=== PATIENT | male | born 1950 | race Caucasian/White ===

== ENCOUNTER 2017-04-15 11:26 | Emergency (ER) | payer MEDICARE, MEDICAID ==
--- NOTE | 2017-04-15 14:14 | RAD ---
Indication: Fall striking posterior head. Focal pain and bump. Comparison: July 04, 2015 CT. Technique: Noncontrast CT vertex of skull through foramen magnum. Report: Mild prominence of the cerebral sulci and ventricles reflecting involutional change. Patent basal cisterns. Negative for avalos matter white matter obscuration, intra or extra-axial hemorrhage, or mass effect. Decreased density in the periventricular and subcortical white matter while non-specific is most likely due to chronic microangiopathy. Unremarkable orbital contents. Negative for calvarial or skull base fracture. Clear visualized paranasal sinuses and mastoid air spaces. Negative for scalp hematoma. IMPRESSION: 1. No traumatic brain injury or acute intracranial process evident. 2. Mild involutional change and stigmata of chronic small vessel ischemic disease with mild progression.
--- NOTE | 2017-04-15 14:19 | RAD ---
Indication: RIGHT hip pain post fall. Comparison: September 03, 2015 CT. Technique: AP pelvis and AP and frog-leg lateral views RIGHT hip. Report: The RIGHT hip is normally located. Negative for pelvic joint diastases. No cortical disruption or suspicious trabecular irregularity of the proximal RIGHT femur or pelvis to indicate fracture. Both hips are remarkable for mild osteophytosis, mild axial joint space narrowing, and partial loss of femoral head sphericity as well as acetabular roof subchondral sclerosis and cystic change. Unremarkable soft tissue contours accounting for obese body habitus. IMPRESSION: No radiographic evidence for RIGHT hip fracture. 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
--- NOTE | 2017-04-15 15:57 | ED ---
Complex/Multi-Sys Presentation - HPI Summary HPI Summary: Pt here w/ fall this morning - was trying to stand and walk somewhere when his legs got caught in his walker and he fell backwards, striking his head. Has a bump here - denies LOC, YEBOAH, visual change, nausea, vomiting, numbness, tingling , weakness, syncope. Also notes Rt hip pain since fall - denies falling here so not sure why this hurts? Denies numbness, tingling, weakness into LE and no change in bowel/bladder habits. Lives at [facility] by himself - h/o Parkinson's - controlled w/ multiple medications. Denies anything other than mis stepping causing his fall today. - History Of Current Complaint Chief Complaint: EDHeadInjury Time Seen by Provider: 04/15/17 12:18 Hx Obtained From: Patient - Allergies/Home Medications Allergies/Adverse Reactions: Allergies Allergy/AdvReac Type Severity Reaction Status Date / Time Haloperidol [From Haldol] Allergy Intermediate Leg Cramps Verified 10/08/15 11: 55 Propoxyphene Allergy Unknown Unknown Verified 10/08/15 11:55 [From Darvocet-N] Reaction Details Zolpidem [From Ambien] Allergy Unknown Unknown Verified 10/08/15 11:55 Reaction Details PMH/Surg Hx/FS Hx/Imm Hx Previously Healthy: Yes Endocrine/Hematology History: Denies: Hx Anticoagulant Therapy, Hx Blood Disorders, Hx Blood Transfusions, Hx Bone Marrow Disease, Hx Diabetes, Hx Systemic Lupus Erythematosus, Hx Sickle Cell Disease, Hx Thyroid Disease, Hx Anemia, Hx Unexplained Bleeding, Other Endocrine/Hematological Disorders Cardiovascular History: Reports: Hx Coronary Artery Disease, Hx Hypercholesterolemia, Hx Hypertension, Other Cardiovascular Problems/Disorders - apparent venous insufficiency Denies: Hx Aneurysm, Hx Angina, Hx Angioplasty, Hx Auto Implanted Cardiovert Defib, Hx Cardiac Arrest, Hx Cardiomegaly, Hx Congenital Heart Disease, Hx Congestive Heart Failure, Hx Deep Vein Thrombosis, Hx Hypotension, Hx Myocardial Infarction, Hx Pacemaker/ICD, Hx Peripheral Vascular Disease, Hx Rheumatic Fever, Hx Syncope, Hx Valvular Heart Disease Respiratory History: Reports: Hx Asthma, Hx Seasonal Allergies, Hx Sleep Apnea Denies: Hx Chronic Bronchitis, Hx Chronic Obstructive Pulmonary Disease (COPD ), Hx Cystic Fibrosis, Hx Lung Cancer, Hx Pleural Effusion, Hx Pneumonia, Hx Pulmonary Edema, Hx Pulmonary Embolism, Other Respiratory Problems/Disorders GI History: Reports: Hx Gastroesophageal Reflux Disease, Hx Irritable Bowel, Other GI Disorders - Chronic constipation Denies: Hx Cirrhosis, Hx Crohn's Disease, Hx Diverticulosis, Hx Gall Bladder Disease, Hx Gastrointestinal Bleed, Hx Hiatal Hernia, Hx Jaundice, Hx Obstructive Bowel, Hx Ileostomy, Hx Pyloric Stenosis, Hx Ulcer History: Reports: Hx Acute Renal Failure - partial nephrectomy, Hx Benign Prostatic Hyperplasia, Hx Kidney Stones, Other Problems/Disorders - has only one functioning kidney Denies: Hx Chronic Renal Failure, Hx Dialysis, Hx Kidney Infection, Hx Renal Disease Musculoskeletal History: Reports: Hx Arthritis, Hx Back Problems - DJD, L-spine stenosis, Hx Tendonitis Denies: Hx Bursitis, Hx Congenital Bone Abnormalities, Hx Fibromyalgia, Hx Gout, Hx Orthopedic Injury, Hx Osteoporosis, Hx Scoliosis, Other Musculoskeletal History Sensory History: Reports: Hx Contacts or Glasses - Glasses left at home, Hx Vision Problem Denies: Hx Cataracts, Hx Eye Injury, Hx Eye Prosthesis, Hx Glaucoma, Hx Macular Degeneration, Hx Deafness, Hx Hearing Aid, Hx Hearing Problem, Other Sensory Impairments Opthamlomology History: Reports: Hx Contacts or Glasses - Glasses left at home, Hx Vision Problem Denies: Hx Cataracts, Hx Eye Injury, Hx Eye Prosthesis, Hx Glaucoma, Hx Macular Degeneration, Other Sensory Impairments Neurological History: Reports: Hx Dementia, Other Neuro Impairments/Disorders - hx says estrellita dementia, pt denies. Bipolar, Parkinsons Denies: Hx Developmental Delay, Hx Headaches, Hx Migraine, Hx Seizures, Hx Spinal Cord Injury, Hx Transient Ischemic Attacks (TIA) Psychiatric History: Reports: Hx Anxiety, Hx Depression, Hx Inpatient Treatment , Hx Community Mental Health Tx, Hx Bipolar Disorder Denies: Hx Attention Deficit Hyperactivity Disorder, Hx Eating Disorder, Hx Panic Disorder, Hx Post Traumatic Stress Disorder, Hx Schizophrenia, Hx Suicide Attempt, Hx of Violent Episodes Against Others, Hx Substance Abuse, Other Psychiatric Issues/Disorders - Cancer History Hx Chemotherapy: No Hx Radiation Therapy: No - Surgical History Surgery Procedure, Year, and Place: lt PARTIAL nephrectomy age 10 ruptured kidney sports related,. Nose surgery from being broken. [place] [facility] [place] Hx Anesthesia Reactions: No - Immunization History Date of Tetanus Vaccine: unknown Date of Influenza Vaccine: 2011 Infectious Disease History: No Infectious Disease History: Denies: Hx Clostridium Difficile, Hx Hepatitis, Hx Human Immunodeficiency Virus (HIV), Hx of Known/Suspected MRSA, Hx Shingles, Hx Tuberculosis, Hx Known/ Suspected VRE, Traveled Outside the [place] in Last 30 Days - Family History Known Family History: Positive: Cardiac Disease, Hypertension, Diabetes - Social History Occupation: Retired Lives: Assisted Living - [facility] Alcohol Use: None Hx Substance Use: No Substance Use Type: Reports: None Hx Tobacco Use: No Smoking Status (MU): Never Smoked Tobacco Have You Smoked in the Last Year: No Review of Systems Constitutional: Negative Negative: Fever, Chills, Fatigue Eyes: Negative Negative: Photophobia, Blurred Vision, Diplopia ENT: Negative Negative: Dental Pain Cardiovascular: Negative Negative: Chest Pain Respiratory: Negative Negative: Shortness Of Breath Gastrointestinal: Negative Negative: Abdominal Pain, Vomiting, Diarrhea, Nausea Positive: no symptoms reported. Negative: incontinence Musculoskeletal: Other - see HPI Skin: Negative Neurological: Other - see HPI Psychological: Normal All Other Systems Reviewed And Are Negative: Yes Physical Exam Triage Information Reviewed: Yes Vital Signs On Initial Exam: Initial Vitals Temp Pulse Resp BP Pulse Ox 98.1 F 92 14 152/82 96 04/15/17 11:27 04/15/17 11:27 04/15/17 11:27 04/15/17 11:27 04/15/17 11:27 Vital Signs Reviewed: Yes Appearance: Positive: Well-Appearing, No Pain Distress, Obese Skin: Positive: Warm, Dry - no erythema, no ecchymosis over scalp, no step off , no battlesigns Head/Face: Positive: Normal Head/Face Inspection - NTTP Eyes: Positive: Normal, EOMI, NATA, Conjunctiva Clear ENT: Positive: Hearing grossly normal, TMs normal - no hemotympanum. Negative: Nasal drainage Dental: Negative: Dental Fracture @ Neck: Positive: Supple, Nontender Respiratory/Lung Sounds: Positive: Breath Sounds Present Cardiovascular: Positive: Normal Abdomen Description: Positive: Nontender Musculoskeletal: Positive: Normal, Strength/ROM Intact Neurological: Positive: Sensory/Motor Intact, Alert, Oriented to Person Place, Time, CN Intact II-III, Other - resting tremor Psychiatric: Positive: Other - somewhat flat affect -pleasant, calm and cooperative Diagnostics - Vital Signs Vital Signs Temp Pulse Resp BP Pulse Ox 04/15/17 11:27 98.1 F 92 14 152/82 96 - Laboratory Lab Statement: Any lab studies that have been ordered have been reviewed, and results considered in the medical decision making process. Complex Multi-Symp Course/Dx Course Of Treatment: Pt head scan is clear after fall - no sx here today of concussion - monitor for neurological deficits over next few weeks. Rt hip w/o acute findings - pt has arthritis here - recent fall may have triggered inflammation - NSAID's as tolerated - otherwise acetaminophen. F/u PCP. Reviewed danger s/sx of when to return to ED - paperwork complete - Diagnoses Provider Diagnoses: Fall from standing, Head injury, Right hip pain Discharge - Discharge Plan Condition: Stable Disposition: HOME Patient Education Materials: Head Injury (ED), Hip Pain (ED), Osteoarthritis ( ED) Referrals: Guille Astudillo MD [Primary Care Provider] - Additional Instructions: Although your head scan was clear of acute injury today, it is important that you monitor yourself for neurological deficits over next few weeks. Follow-up with PCP in 2-3 days for recheck. *if you develop headache, change in vision, vomiting, dizziness, neck pain, syncope, return to ED Your right hip pain may be an early contusion and/or arthritis flair up. You may ice/heat, gently stretch, take NSAID's with food as tolerated - otherwise you may take acetaminophen for pain. Follow-up with PCP this week. Call today to schedule an appointment this week. *If you develop swelling, significant bruising, weakness in leg, return to ED
[2017-04-15 17:09] VITALS: BP 154/82
== END 2017-04-15 16:30 | disposition home or self-care (01) ==
LOC: ED 11:26
DX: S09.90XA Unspecified injury of head, initial encounter (principal); M25.551 Pain in right hip; W19.XXXA Unspecified fall, initial encounter; Y93.9 Activity, unspecified; Y92.9 Unspecified place or not applicable
CPT/HCPCS: 70450; 99282

== ENCOUNTER 2017-06-27 16:14 | Emergency (ER) | payer MEDICARE, MEDICAID ==
[2017-06-27] MEDS ORDERED: traMADol TAB* 50 MG PO ONE (19:12)
--- NOTE | 2017-06-27 20:02 | RAD ---
INDICATION: Bilateral hip pain COMPARISON: Pelvis and right hip April 15, 2017 TECHNIQUE: An AP view of the pelvis and AP views of the hip in neutral and abducted position were obtained FINDINGS: Bones: There are no acute bony findings. Joint spaces: The joint spaces are preserved. There is osteoarthritic change about the acetabula right greater left. There is mild developmental deformity of both femoral heads. SI joints/symphysis: The SI joints and symphysis are intact. Other: None IMPRESSION: MODERATE OSTEOARTHRITIC CHANGES. NO ACUTE FINDINGS.
--- NOTE | 2017-06-27 20:28 | ED ---
Lower Extremity - HPI Summary HPI Summary: 67M presents with bilateral hip pain s/p fall on 06/24/17. He fell mostly onto right hip but both hips hurt bilaterally. He is still able to ambulate on his legs with a walker as normal. He states they only give him tyenlol or ibuprofen at the rehab and it is not enough. He denies any numbness or tingling. He denies any back pain. He denies any loss of bowel or bladder. He denies any fever. He denies any saddle anaesthesia. no previous fracture to area. no other compliant. fall was a mechanical fall. - History of Current Complaint Chief Complaint: EDBackInjuryPain Stated Complaint: BACK PAIN Time Seen by Provider: 06/27/17 18:06 Pain Intensity: 8 - Allergies/Home Medications Allergies/Adverse Reactions: Allergies Allergy/AdvReac Type Severity Reaction Status Date / Time Haloperidol [From Haldol] Allergy Intermediate Leg Cramps Verified 06/27/17 16: 34 Propoxyphene Allergy Unknown Unknown Verified 06/27/17 16:34 [From Darvocet-N] Reaction Details Zolpidem [From Ambien] Allergy Unknown Unknown Verified 06/27/17 16:34 Reaction Details PMH/Surg Hx/FS Hx/Imm Hx Endocrine/Hematology History: Denies: Hx Anticoagulant Therapy, Hx Blood Disorders, Hx Blood Transfusions, Hx Bone Marrow Disease, Hx Diabetes, Hx Systemic Lupus Erythematosus, Hx Sickle Cell Disease, Hx Thyroid Disease, Hx Anemia, Hx Unexplained Bleeding, Other Endocrine/Hematological Disorders Cardiovascular History: Reports: Hx Coronary Artery Disease, Hx Hypercholesterolemia, Hx Hypertension, Other Cardiovascular Problems/Disorders - apparent venous insufficiency Denies: Hx Aneurysm, Hx Angina, Hx Angioplasty, Hx Auto Implanted Cardiovert Defib, Hx Cardiac Arrest, Hx Cardiomegaly, Hx Congenital Heart Disease, Hx Congestive Heart Failure, Hx Deep Vein Thrombosis, Hx Hypotension, Hx Myocardial Infarction, Hx Pacemaker/ICD, Hx Peripheral Vascular Disease, Hx Rheumatic Fever, Hx Syncope, Hx Valvular Heart Disease Respiratory History: Reports: Hx Asthma, Hx Seasonal Allergies, Hx Sleep Apnea Denies: Hx Chronic Bronchitis, Hx Chronic Obstructive Pulmonary Disease (COPD ), Hx Cystic Fibrosis, Hx Lung Cancer, Hx Pleural Effusion, Hx Pneumonia, Hx Pulmonary Edema, Hx Pulmonary Embolism, Other Respiratory Problems/Disorders GI History: Reports: Hx Gastroesophageal Reflux Disease, Hx Irritable Bowel, Other GI Disorders - Chronic constipation Denies: Hx Cirrhosis, Hx Crohn's Disease, Hx Diverticulosis, Hx Gall Bladder Disease, Hx Gastrointestinal Bleed, Hx Hiatal Hernia, Hx Jaundice, Hx Obstructive Bowel, Hx Ileostomy, Hx Pyloric Stenosis, Hx Ulcer History: Reports: Hx Acute Renal Failure - partial nephrectomy, Hx Benign Prostatic Hyperplasia, Hx Kidney Stones, Other Problems/Disorders - has only one functioning kidney Denies: Hx Chronic Renal Failure, Hx Dialysis, Hx Kidney Infection, Hx Renal Disease Musculoskeletal History: Reports: Hx Arthritis, Hx Back Problems - DJD, L-spine stenosis, Hx Tendonitis Denies: Hx Bursitis, Hx Congenital Bone Abnormalities, Hx Fibromyalgia, Hx Gout, Hx Orthopedic Injury, Hx Osteoporosis, Hx Scoliosis, Other Musculoskeletal History Sensory History: Reports: Hx Contacts or Glasses - Glasses left at home, Hx Vision Problem Denies: Hx Cataracts, Hx Eye Injury, Hx Eye Prosthesis, Hx Glaucoma, Hx Macular Degeneration, Hx Deafness, Hx Hearing Aid, Hx Hearing Problem, Other Sensory Impairments Opthamlomology History: Reports: Hx Contacts or Glasses - Glasses left at home, Hx Vision Problem Denies: Hx Cataracts, Hx Eye Injury, Hx Eye Prosthesis, Hx Glaucoma, Hx Macular Degeneration, Other Sensory Impairments Neurological History: Reports: Hx Dementia, Other Neuro Impairments/Disorders - hx says estrellita dementia, pt denies. Bipolar, Parkinsons Denies: Hx Developmental Delay, Hx Headaches, Hx Migraine, Hx Seizures, Hx Spinal Cord Injury, Hx Transient Ischemic Attacks (TIA) Psychiatric History: Reports: Hx Anxiety, Hx Depression, Hx Inpatient Treatment , Hx Community Mental Health Tx, Hx Bipolar Disorder Denies: Hx Attention Deficit Hyperactivity Disorder, Hx Eating Disorder, Hx Panic Disorder, Hx Post Traumatic Stress Disorder, Hx Schizophrenia, Hx Suicide Attempt, Hx of Violent Episodes Against Others, Hx Substance Abuse, Other Psychiatric Issues/Disorders - Cancer History Hx Chemotherapy: No Hx Radiation Therapy: No - Surgical History Surgery Procedure, Year, and Place: lt PARTIAL nephrectomy age 10 ruptured kidney sports related,. Nose surgery from being broken. [place] [facility] [place] Hx Anesthesia Reactions: No - Immunization History Date of Tetanus Vaccine: unknown Date of Influenza Vaccine: 2011 Infectious Disease History: No Infectious Disease History: Denies: Hx Clostridium Difficile, Hx Hepatitis, Hx Human Immunodeficiency Virus (HIV), Hx of Known/Suspected MRSA, Hx Shingles, Hx Tuberculosis, Hx Known/ Suspected VRE, Traveled Outside the [place] in Last 30 Days - Family History Known Family History: Positive: None, Cardiac Disease, Hypertension, Diabetes - Social History Alcohol Use: None Hx Substance Use: No Substance Use Type: Reports: None Hx Tobacco Use: No Smoking Status (MU): Never Smoked Tobacco Have You Smoked in the Last Year: No Review of Systems Negative: Fever Negative: Chest Pain Negative: Shortness Of Breath Positive: Myalgia - bilateral hip pain All Other Systems Reviewed And Are Negative: Yes Physical Exam Triage Information Reviewed: Yes Vital Signs On Initial Exam: Initial Vitals Temp Pulse Resp BP Pulse Ox 97.0 F 90 16 163/77 100 06/27/17 16:34 06/27/17 16:34 06/27/17 16:34 06/27/17 16:34 06/27/17 16:34 Vital Signs Reviewed: Yes Appearance: Positive: Well-Appearing Skin: Positive: Warm, Dry Head/Face: Positive: Normal Head/Face Inspection Eyes: Positive: Normal, Conjunctiva Clear Respiratory/Lung Sounds: Positive: Clear to Auscultation, Breath Sounds Present Cardiovascular: Positive: Normal, RRR Musculoskeletal: Positive: Strength/ROM Intact - hips with pain, Other - tenderness greatest over right hip, good pulses Neurological: Positive: Sensory/Motor Intact Psychiatric: Positive: Normal - Adelfo Coma Scale Coma Scale Total: 15 Diagnostics - Vital Signs Vital Signs Temp Pulse Resp BP Pulse Ox 06/27/17 16:34 97.0 F 90 16 163/77 100 - Laboratory Lab Statement: Any lab studies that have been ordered have been reviewed, and results considered in the medical decision making process. - Radiology hip Xray Interpretation: No Acute Changes Radiology Interpretation Completed By: Radiologist Re-Evaluation - Re-Evaluation First Eval Re-Evaluation Time: 20:28 Change: Improved Comment: feeling better with pain medication Lower Extremity Course/Dx - Course Course Of Treatment: 67M presents with bilateral hip pain s/p fall on 06/24/17. He fell mostly onto right hip but both hips hurt bilaterally. He is still able to ambulate on his legs with a walker as normal. He states they only give him tyenlol or ibuprofen at the rehab and it is not enough. He denies any numbness or tingling. He denies any back pain. He denies any loss of bowel or bladder. He denies any fever. He denies any saddle anaesthesia. no previous fracture to area. no other compliant. fall was a mechanical fall. on exam tenderness greatest over right rib. good strength lower extremity. hip xray normal. patient felt some relief with tramadol so will discharge with short script. patient understand and agrees with plan. - Diagnoses Differential Diagnosis/HQI/PQRI: Positive: Contusion, Fracture (Closed), Sprain Provider Diagnoses: Hip pain, Fall Discharge - Discharge Plan Condition: Good Disposition: HOME Prescriptions: traMADol TAB* [Ultram*] 25 mg PO Q8H PRN #6 tab MDD 3 PRN Reason: Pain Patient Education Materials: Hip Pain (ED) Referrals: Guille Astudillo MD [Primary Care Provider] - Additional Instructions: Take Tylenol every 6 hours as needed for pain, use narcotic every 8 hours for break through pain Apply ice, rest, Follow up with primary care physician within 5 days Return to ED if develop any new or worsening symptoms
[2017-06-27 20:55] VITALS: BP 159/87
== END 2017-06-27 21:18 | disposition home or self-care (01) ==
LOC: ED 16:14
DX: M25.552 Pain in left hip (principal); M25.551 Pain in right hip; W19.XXXA Unspecified fall, initial encounter; Y93.9 Activity, unspecified; Y92.9 Unspecified place or not applicable
CPT/HCPCS: 73523; 99282; A9270-GY

== ENCOUNTER 2017-08-21 12:52 | Emergency (ER) | payer MEDICARE, MEDICAID ==
[2017-08-21] MEDS ORDERED: Morphine INJ* 4 MG/ML 1 ML CARPUJECT IV ONE (13:05)
[2017-08-21] MEDS ORDERED: Ondansetron INJ* 2 MG/ML VIAL IV ONE (13:05)
[2017-08-21 13:47] LABS: ABS Basophils 0 10^3/ul (0-0.2); ABS Eosinophils 0.1 10^3/ul (0-0.6); ABS Lymphocytes 2.2 10^3/ul (1.0-4.8); ABS Monocytes 0.6 10^3/ul (0-0.8); ABS Neutrophils 2.6 10^3/ul (1.5-7.7); ABS Nucleated RBC 0 10^3/ul; Eosinophil % 1.8 % (0-6); Hematocrit 45 % (42-52); Hemoglobin 15.5 g/dl (14.0-18.0); Lymphocyte % 39.6 % (25-47); Mean Corpuscular HGB Conc 34 g/dl (31-36); Mean Corpuscular Hemoglobin 32 pg (27-31); Mean Corpuscular Volume 93 fL (80-94); Mean Platelet Volume 8 um3 (7.4-10.4); Nucleated Red Blood Cells % 0.2; Platelet Count 189 10^3/ul (150-450); Red Blood Count 4.87 10^6/ul (4.0-5.4); Red Cell Distribution Width 13 % (10.5-15); White Blood Count 5.5 10^3/ul (3.5-10.8)
[2017-08-21 14:09] LABS: INR 0.92 (0.77-1.02)
[2017-08-21 14:34] LABS: EGFR Non-African American 79.6 (>60)
[2017-08-21 14:42] LABS: Urine Appearance Clear; Urine Blood Negative (Negative); Urine Color Yellow; Urine Ketones Negative (Negative); Urine Protein Negative (Negative); Urine Specific Gravity 1.015 (1.010-1.030); Urine Urobilinogen Negative (Negative)
[2017-08-21] MEDS ORDERED: Iodixanol* (CONTRAST) 320 MG/ML 100 ML SDV IV ONE (15:52)
--- NOTE | 2017-08-21 17:00 | RAD ---
Indication: Left lower quadrant pain. Contrast: Administered 139.2 ml of VISIPAQUE 320 mg/ml. CT of the abdomen and pelvis was performed after oral and IV contrast administration. Coronal and sagittal reconstructed images were obtained. The lung bases demonstrate no pleural fluid, nodules or masses. The heart is of normal size without evidence of pericardial effusion. The liver is normal in size. There are no focal lesions or intrahepatic duct dilatation noted. The spleen is normal in size. The pancreas demonstrates no mass or pancreatic duct dilatation. The common duct is not dilated. The gallbladder demonstrates no calcified gallstones, pericholecystic fluid or wall thickening. No adrenal masses are noted. The kidneys demonstrate symmetric nephrograms without focal lesions. Aorta and inferior vena cava are unremarkable. Retroaortic left renal vein is noted. Common iliac arteries and external iliac arteries are unremarkable. The colon is filled with stool. CT of the pelvis demonstrates no retroperitoneal or pelvic lymphadenopathy. Urinary bladder is unremarkable. The prostate is otherwise unremarkable. No evidence of bowel obstruction is noted. The appendix demonstrates air within it. The diameter of the appendix is 9 mm. I cannot totally exclude appendicitis. No diverticulosis is noted. Focally distended loops of small bowel in the left lower quadrant are noted, nonspecific in nature. No evidence of wall thickening is noted. This may represent focal adynamic ileus. The urinary bladder is unremarkable. The prostate is otherwise unremarkable. IMPRESSION: 1. No evidence of bowel obstruction is noted with contrast in the right colon. There is a dilated appendix measuring 8 mm in diameter. I cannot totally exclude appendicitis. Clinical correlation is suggested. 2. Localized distention of small bowel in the left lower quadrant. The possibility of localized ileus should be considered.
[2017-08-21] MEDS ORDERED: traMADol TAB* 50 MG PO ONE (17:43)
--- NOTE | 2017-08-21 18:58 | ED ---
Abdominal Pain/Male - HPI Summary HPI Summary: Patient presents to the ED by ambulance with CC of left lower quadrant and groin pain x 2 weeks. Notes to pain with urination as well. Endorses enlarged prostate and is seen by Dr. Andino. He has not been seen for this particular complaint. He has not told anyone at [place] (where he resides). Pain is 8/ 10 and intermittent. Not worse or better with position or urination. Denies back pain or history of kidney stones. Denies hx of diverticulitis or hernia. Denies N/V/C/D and has been passing gas. He has been eating well and denies early satiety. Hx of parkinsons. He fell a few weeks ago, was seen in the ED for a head injury. It is possible, per patient, that he twisted the groin at that time, but is unsure. LLQ and groin pain started simultaneously around 2 weeks ago spontaneously without any known injury. - History of Current Complaint Chief Complaint: EDAbdPain Stated Complaint: ABD PAIN Time Seen by Provider: 08/21/17 12:55 Hx Obtained From: Patient Onset/Duration: Sudden Onset Timing: Constant Severity Initially: Moderate Severity Currently: Moderate Pain Intensity: 7 Pain Scale Used: 0-10 Numeric Location: Discrete At: LLQ, Groin Radiates: Yes Character: Cramping Aggravating Factor(s): Nothing Alleviating Factor(s): Nothing Associated Signs And Symptoms: Positive: Urinary Symptoms. Negative: Back Pain , Constipation, Blood in Stool, Nausea, Vomiting, Diarrhea, Penile Discharge - Risk Factors Testicular Torsion: Negative - Allergies/Home Medications Allergies/Adverse Reactions: Allergies Allergy/AdvReac Type Severity Reaction Status Date / Time Haloperidol [From Haldol] Allergy Intermediate Leg Cramps Verified 06/27/17 16: 34 Propoxyphene Allergy Unknown Unknown Verified 06/27/17 16:34 [From Darvocet-N] Reaction Details Zolpidem [From Ambien] Allergy Unknown Unknown Verified 06/27/17 16:34 Reaction Details Home Medications: Home Medications Acetaminophen [Acetaminophen Extra Stren] 1,000 mg PO BID 08/21/17 [History Confirmed 08/21/17] Calcium Carbonate CHEW TAB* [Tums*] 1,000 mg PO BID PRN 08/21/17 [History Confirmed 08/21/17] Ergocalciferol CAP* [Drisdol CAP*] 50,000 unit PO MONTHLY 08/21/17 [History Confirmed 08/21/17] Hydrochlorothiazide TAB* [Hydrodiuril TAB*] 12.5 mg PO DAILY 08/21/17 [History Confirmed 08/21/17] LORazepam TAB(*) [Ativan 0.5 MG TAB (*)] 0.5 mg PO Q12H PRN 08/21/17 [History Confirmed 08/21/17] Loperamide CAP* [Imodium CAP*] 2 mg PO DAILY PRN MDD 4 tabs 08/21/17 [History Confirmed 08/21/17] Meloxicam(NF) [Mobic(NF)] 7.5 mg PO QPM 08/21/17 [History Confirmed 08/21/17] Polyethylene Glycol 3350* [Miralax*] 17 gm PO DAILY 08/21/17 [History Confirmed 08/21/17] Ranitidine TAB (NF) [Zantac TAB (NF)] 150 mg PO BEDTIME 08/21/17 [History Confirmed 08/21/17] Senna/Docusate (NF) [Sennokot-S] 2 tab PO DAILY 08/21/17 [History Confirmed ] Solifenacin(NF) [Vesicare(NF)] 5 mg PO DAILY 08/21/17 [History Confirmed ] Tamsulosin CAP* [Flomax CAP*] 0.4 mg PO DAILY 08/21/17 [History Confirmed ] traZODone TAB* [Desyrel TAB*] 150 mg PO BEDTIME 08/21/17 [History Confirmed ] PMH/Surg Hx/FS Hx/Imm Hx Previously Healthy: No - see below Endocrine/Hematology History: Denies: Hx Anticoagulant Therapy, Hx Blood Disorders, Hx Blood Transfusions, Hx Bone Marrow Disease, Hx Diabetes, Hx Systemic Lupus Erythematosus, Hx Sickle Cell Disease, Hx Thyroid Disease, Hx Anemia, Hx Unexplained Bleeding, Other Endocrine/Hematological Disorders Cardiovascular History: Reports: Hx Coronary Artery Disease, Hx Hypercholesterolemia, Hx Hypertension, Other Cardiovascular Problems/Disorders - apparent venous insufficiency Denies: Hx Aneurysm, Hx Angina, Hx Angioplasty, Hx Auto Implanted Cardiovert Defib, Hx Cardiac Arrest, Hx Cardiomegaly, Hx Congenital Heart Disease, Hx Congestive Heart Failure, Hx Deep Vein Thrombosis, Hx Hypotension, Hx Myocardial Infarction, Hx Pacemaker/ICD, Hx Peripheral Vascular Disease, Hx Rheumatic Fever, Hx Syncope, Hx Valvular Heart Disease Respiratory History: Reports: Hx Asthma, Hx Seasonal Allergies, Hx Sleep Apnea Denies: Hx Chronic Bronchitis, Hx Chronic Obstructive Pulmonary Disease (COPD ), Hx Cystic Fibrosis, Hx Lung Cancer, Hx Pleural Effusion, Hx Pneumonia, Hx Pulmonary Edema, Hx Pulmonary Embolism, Other Respiratory Problems/Disorders GI History: Reports: Hx Gastroesophageal Reflux Disease, Hx Irritable Bowel, Other GI Disorders - Chronic constipation Denies: Hx Cirrhosis, Hx Crohn's Disease, Hx Diverticulosis, Hx Gall Bladder Disease, Hx Gastrointestinal Bleed, Hx Hiatal Hernia, Hx Jaundice, Hx Obstructive Bowel, Hx Ileostomy, Hx Pyloric Stenosis, Hx Ulcer History: Reports: Hx Acute Renal Failure - partial nephrectomy, Hx Benign Prostatic Hyperplasia, Hx Kidney Stones, Other Problems/Disorders - has only one functioning kidney Denies: Hx Chronic Renal Failure, Hx Dialysis, Hx Kidney Infection, Hx Renal Disease Musculoskeletal History: Reports: Hx Arthritis, Hx Back Problems - DJD, L-spine stenosis, Hx Tendonitis Denies: Hx Bursitis, Hx Congenital Bone Abnormalities, Hx Fibromyalgia, Hx Gout, Hx Orthopedic Injury, Hx Osteoporosis, Hx Scoliosis, Other Musculoskeletal History Sensory History: Reports: Hx Contacts or Glasses - Glasses left at home, Hx Vision Problem Denies: Hx Cataracts, Hx Eye Injury, Hx Eye Prosthesis, Hx Glaucoma, Hx Macular Degeneration, Hx Deafness, Hx Hearing Aid, Hx Hearing Problem, Other Sensory Impairments Opthamlomology History: Reports: Hx Contacts or Glasses - Glasses left at home, Hx Vision Problem Denies: Hx Cataracts, Hx Eye Injury, Hx Eye Prosthesis, Hx Glaucoma, Hx Macular Degeneration, Other Sensory Impairments Neurological History: Reports: Hx Dementia, Other Neuro Impairments/Disorders - 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 Bipolar, Parkinsons Denies: Hx Developmental Delay, Hx Headaches, Hx Migraine, Hx Seizures, Hx Spinal Cord Injury, Hx Transient Ischemic Attacks (TIA) Psychiatric History: Reports: Hx Anxiety, Hx Depression, Hx Inpatient Treatment , Hx Community Mental Health Tx, Hx Bipolar Disorder Denies: Hx Attention Deficit Hyperactivity Disorder, Hx Eating Disorder, Hx Panic Disorder, Hx Post Traumatic Stress Disorder, Hx Schizophrenia, Hx Suicide Attempt, Hx of Violent Episodes Against Others, Hx Substance Abuse, Other Psychiatric Issues/Disorders - Cancer History Hx Chemotherapy: No Hx Radiation Therapy: No - Surgical History Surgery Procedure, Year, and Place: lt PARTIAL nephrectomy age 10 ruptured kidney sports related,. Nose surgery from being broken. heart cath at [facility] [place] Hx Anesthesia Reactions: No - Immunization History Date of Tetanus Vaccine: unknown Date of Influenza Vaccine: 2012 Hx Pertussis Vaccination: No Immunizations Up to Date: Unable to Obtain/Confirm Infectious Disease History: No Infectious Disease History: Denies: Hx Clostridium Difficile, Hx Hepatitis, Hx Human Immunodeficiency Virus (HIV), Hx of Known/Suspected MRSA, Hx Shingles, Hx Tuberculosis, Hx Known/ Suspected VRE, Traveled Outside the [place] in Last 30 Days - Family History Known Family History: Positive: None, Cardiac Disease, Hypertension, Diabetes - Social History Occupation: Unemployed Lives: Assisted Living Alcohol Use: None Hx Substance Use: No Substance Use Type: Reports: None Hx Tobacco Use: No Smoking Status (MU): Never Smoked Tobacco Have You Smoked in the Last Year: No Review of Systems Constitutional: Negative Negative: Fever, Chills, Fatigue, Skin Diaphoresis Eyes: Negative Cardiovascular: Negative Respiratory: Negative Positive: Abdominal Pain Positive: no symptoms reported, see HPI, other - groin pain Musculoskeletal: Negative Skin: Negative Psychological: Normal All Other Systems Reviewed And Are Negative: Yes Physical Exam Triage Information Reviewed: Yes Vital Signs On Initial Exam: Initial Vitals Temp Pulse Resp BP Pulse Ox 98.2 F 88 18 131/78 100 08/21/17 12:52 08/21/17 12:52 08/21/17 12:52 08/21/17 12:52 08/21/17 12:52 Vital Signs Reviewed: Yes Appearance: Positive: Well-Appearing, No Pain Distress, Well-Nourished Skin: Positive: Warm, Skin Color Reflects Adequate Perfusion Head/Face: Positive: Normal Head/Face Inspection Eyes: Positive: EOMI, NATA, Conjunctiva Clear Neck: Positive: Supple, Nontender, No Lymphadenopathy Respiratory/Lung Sounds: Positive: Clear to Auscultation, Breath Sounds Present Cardiovascular: Positive: Normal, RRR, Pulses are Symmetrical in both Upper and Lower Extremities Abdomen Description: Positive: Distended Male Genital Exam: Positive: no hernia - no eccymosis or hernia noted Musculoskeletal: Positive: Normal, Strength/ROM Intact Neurological: Positive: Speech Normal Psychiatric: Positive: Normal, Affect/Mood Appropriate AVPU Assessment: Alert Diagnostics - Vital Signs Vital Signs Temp Pulse Resp BP Pulse Ox 08/21/17 18:22 18 147/126 08/21/17 18:00 88 21 100 08/21/17 17:30 88 21 98 08/21/17 17:00 68 18 94 08/21/17 16:30 85 17 100 08/21/17 16:00 25 08/21/17 15:30 75 20 100 08/21/17 15:02 22 122/67 08/21/17 15:00 21 08/21/17 14:30 72 20 100 08/21/17 14:00 83 16 127/96 100 08/21/17 13:46 16 08/21/17 13:30 87 15 97 08/21/17 13:17 87 15 99 08/21/17 13:16 140/84 08/21/17 12:52 98.2 F 88 18 131/78 100 - Laboratory Lab Results: Lab Results 08/21/17 08/21/17 08/21/17 Range/Units 13:30 13:30 13:30 WBC 5.5 (3.5-10.8) 10^3/ul RBC 4.87 (4.0-5.4) 10^6/ul Hgb 15.5 (14.0-18.0) g/dl Hct 45 (42-52) % MCV 93 (80-94) fL MCH 32 H (27-31) pg MCHC 34 (31-36) g/dl RDW 13 (10.5-15) % Plt Count 189 (150-450) 10^3/ul MPV 8 (7.4-10.4) um3 Neut % (Auto) 46.8 (38-83) % Lymph % (Auto) 39.6 (25-47) % [place] % (Auto) 11.4 H (1-9) % Eos % (Auto) 1.8 (0-6) % Baso % (Auto) 0.4 (0-2) % Absolute Neuts (auto) 2.6 (1.5-7.7) 10^3/ul Absolute Lymphs (auto) 2.2 (1.0-4.8) 10^3/ul Absolute Monos (auto) 0.6 (0-0.8) 10^3/ul Absolute Eos (auto) 0.1 (0-0.6) 10^3/ul Absolute Basos (auto) 0 (0-0.2) 10^3/ul Absolute Nucleated RBC 0 10^3/ul Nucleated RBC % 0.2 INR (Anticoag Therapy) 0.92 (0.77-1.02) Sodium 136 (133-145) mmol/L Potassium 4.1 (3.5-5.0) mmol/L Chloride 101 (101-111) mmol/L Carbon Dioxide 27 (22-32) mmol/L Anion Gap 8 (2-11) mmol/L BUN 17 (6-24) mg/dL Creatinine 0.94 (0.67-1.17) mg/dL Est GFR ( Amer) 102.3 (>60) Est GFR (Non-Af Amer) 79.6 (>60) BUN/Creatinine Ratio 18.1 (8-20) Glucose 101 H (70-100) mg/dL Lactic Acid (0.5-2.0) mmol/L Calcium 10.2 (8.6-10.3) mg/dL Magnesium 2.0 (1.9-2.7) mg/dL Total Bilirubin 0.60 (0.2-1.0) mg/dL AST 12 L (13-39) U/L ALT 15 (7-52) U/L Alkaline Phosphatase 46 (34-104) U/L Total Creatine Kinase 80 (10-223) U/L C-Reactive Protein 1.30 (< 5.00) mg/L Total Protein 7.0 (6.4-8.9) g/dL Albumin 4.3 (3.2-5.2) g/dL Globulin 2.7 (2-4) g/dL Albumin/Globulin Ratio 1.6 (1-3) Lipase 24 (11.0-82.0) U/L Urine Color Urine Appearance Urine pH (5-9) Ur Specific [place] (1.010-1.030) Urine Protein (Negative) Urine Ketones (Negative) Urine Blood (Negative) Urine Nitrate (Negative) Urine Bilirubin (Negative) Urine Urobilinogen (Negative) Ur Leukocyte Esterase (Negative) Urine Glucose (Negative) 08/21/17 08/21/17 Range/Units 13:30 13:50 WBC (3.5-10.8) 10^3/ul RBC (4.0-5.4) 10^6/ul Hgb (14.0-18.0) g/dl Hct (42-52) % MCV (80-94) fL MCH (27-31) pg MCHC (31-36) g/dl RDW (10.5-15) % Plt Count (150-450) 10^3/ul MPV (7.4-10.4) um3 Neut % (Auto) (38-83) % Lymph % (Auto) (25-47) % [place] % (Auto) (1-9) % Eos % (Auto) (0-6) % Baso % (Auto) (0-2) % Absolute Neuts (auto) (1.5-7.7) 10^3/ul Absolute Lymphs (auto) (1.0-4.8) 10^3/ul Absolute Monos (auto) (0-0.8) 10^3/ul Absolute Eos (auto) (0-0.6) 10^3/ul Absolute Basos (auto) (0-0.2) 10^3/ul Absolute Nucleated RBC 10^3/ul Nucleated RBC % INR (Anticoag Therapy) (0.77-1.02) Sodium (133-145) mmol/L Potassium (3.5-5.0) mmol/L Chloride (101-111) mmol/L Carbon Dioxide (22-32) mmol/L Anion Gap (2-11) mmol/L BUN (6-24) mg/dL Creatinine (0.67-1.17) mg/dL Est GFR ( Amer) (>60) Est GFR (Non-Af Amer) (>60) BUN/Creatinine Ratio (8-20) Glucose (70-100) mg/dL Lactic Acid 2.4 H* (0.5-2.0) mmol/L Calcium (8.6-10.3) mg/dL Magnesium (1.9-2.7) mg/dL Total Bilirubin (0.2-1.0) mg/dL AST (13-39) U/L ALT (7-52) U/L Alkaline Phosphatase (34-104) U/L Total Creatine Kinase (10-223) U/L C-Reactive Protein (< 5.00) mg/L Total Protein (6.4-8.9) g/dL Albumin (3.2-5.2) g/dL Globulin (2-4) g/dL Albumin/Globulin Ratio (1-3) Lipase (11.0-82.0) U/L Urine Color Yellow Urine Appearance Clear Urine pH 8.0 (5-9) Ur Specific [place] 1.015 (1.010-1.030) Urine Protein Negative (Negative) Urine Ketones Negative (Negative) Urine Blood Negative (Negative) Urine Nitrate Negative (Negative) Urine Bilirubin Negative (Negative) Urine Urobilinogen Negative (Negative) Ur Leukocyte Esterase Negative (Negative) Urine Glucose Negative (Negative) Result Diagrams: 08/21/17 13:30 08/21/17 13:30 Lab Statement: Any lab studies that have been ordered have been reviewed, and results considered in the medical decision making process. Abdominal Pain Fem Course/Dx - Course Course Of Treatment: Patient is given morphine for pain. CT abd/pelvis obtained which shows possible ileus, but patient demonstrates no symptoms of such. C/o groin pain but there is no pain on palaption of the L groin. No obvious inguinal hernia was palpable. No discoloration. Pain is 7/10. I have advised patient follow up with Dr. Andino, but likely this was a groin strain from his fall 2 weeks ago. He is given return precautions if symptoms worsen and pain medication given. He is given tramadol for pain not well controlled with tylenol. He is OK for discharge and no other findings on labs or UA identified. - Diagnoses Provider Diagnoses: Groin pain Discharge - Discharge Plan Condition: Stable Disposition: HOME Prescriptions: traMADol TAB* [Ultram*] 50 mg PO Q8H PRN #15 tab MDD 3 PRN Reason: Pain Patient Education Materials: Groin Pain (ED) Referrals: Guille Astudillo MD [Primary Care Provider] - Additional Instructions: Please follow up with Dr. Andino as soon as possible Follow up with your PCP as well.
[2017-08-21 19:10] VITALS: BP 133/65
== END 2017-08-21 19:09 | disposition home or self-care (01) ==
LOC: ED 12:52
DX: R10.32 Left lower quadrant pain (principal); R10.30 Lower abdominal pain, unspecified
CPT/HCPCS: 36415; 74177; 80053; 81003; 82550; 83605; 83690; 83735; 85025; 85610; 86140; 96374; 96375; 99284; A9270-GY; J2270; J2405; Q9967

== ENCOUNTER 2017-11-06 15:07 | Emergency (ER) | payer MEDICARE, MEDICAID ==
[2017-11-06 18:44] LABS: ABS Basophils 0 10^3/ul (0-0.2); ABS Eosinophils 0.1 10^3/ul (0-0.6); ABS Lymphocytes 2.8 10^3/ul (1.0-4.8); ABS Monocytes 0.7 10^3/ul (0-0.8); ABS Neutrophils 4.3 10^3/ul (1.5-7.7); ABS Nucleated RBC 0 10^3/ul; Eosinophil % 1.2 % (0-6); Hematocrit 43 % (42-52); Hemoglobin 15.1 g/dl (14.0-18.0); Lymphocyte % 35.3 % (25-47); Mean Corpuscular HGB Conc 35 g/dl (31-36); Mean Corpuscular Hemoglobin 32 pg (27-31); Mean Corpuscular Volume 93 fL (80-94); Mean Platelet Volume 7.4 um3 (7.4-10.4); Nucleated Red Blood Cells % 0.2; Platelet Count 182 10^3/ul (150-450); Red Blood Count 4.65 10^6/ul (4.0-5.4); Red Cell Distribution Width 14 % (10.5-15)
[2017-11-06 18:52] LABS: INR 0.89 (0.77-1.02)
[2017-11-06 19:11] LABS: EGFR Non-African American 79.6 (>60)
--- NOTE | 2017-11-06 19:11 | RAD ---
Indication: RIGHT greater than LEFT bilateral testicular pain. Comparison: September 18, 2017 testicular ultrasound. October 24, 2017 CT Technique: Scrotal ultrasound. Report: Normal range symmetric testicular vascularity without evidence for torsion or orchitis. 4.1 x 2.3 x 2.9 cm RIGHT testicle demonstrates normal echotexture. 3 mm subcapsular grossly simple appearing cyst is unchanged without concern. 4.0 x 2.1 x 2.9 cm LEFT testicle demonstrates normal echotexture. No focal LEFT testicular lesions evident. 1.2 x 1.4 cm RIGHT epididymis head with normal vascularity is remarkable for a 0.3 x 0.3 x 0.6 cm epididymal head cyst or spermatocele without change. 1.3 x 1.4 LEFT epididymis head with normal range vascularity is unremarkable. Small mildly complex bilateral hydroceles similar to the prior exam. Negative for varicoceles. IMPRESSION: 1. Stable benign 3 mm subcapsular cyst at the RIGHT testicle. 2. Negative for suspicious focal testicular lesions, testicular torsion, or epididymoorchitis. 3. Small mildly complex bilateral hydroceles without significant change.
[2017-11-06] MEDS: NS 0.9% 1000 ML* 2,000 ML IV ONE (19:19)
--- NOTE | 2017-11-06 19:48 | RAD ---
INDICATION: RIGHT lower quadrant, groin, testicular pain. Denies urinary symptoms. COMPARISON: Testicular ultrasound of the same date and October 24, 2017 CT. TECHNIQUE: Multidetector CT images were obtained from the lung bases to the ischial tuberosities. Evaluation of the viscera is limited without IV contrast. Multiplanar reformation. REPORT: Unremarkable visualized inferior thorax. The unenhanced liver, gallbladder, pancreas, and spleen are unremarkable. Negative for CT abnormality of the upper GI, small bowel, retrocecal appendix, or colon aside from redundancy of the colon. Negative for ascites, free air, hernias. Normal adrenal glands. 2 mm stone inferior pole LEFT kidney. Negative for ureteral stone or hydronephrosis. No abnormality along the course of the nondilated ureters. Largely decompressed urinary bladder limiting assessment without gross abnormality. Coarse calcification at the prostate as on the prior exam. Unremarkable seminal vesicles. Top normal 1 cm short axis RIGHT external iliac lymph node without change. Negative for lymphadenopathy. Normal diameter abdominal aorta and iliac arteries with mild calcific plaque. Partially decompressed IVC indicating lower volume state. Negative for suspicious focal osseous lesions. Unchanged degenerative grade 3 L5-S1 anterolisthesis and severe L5-S1 degenerative spondylosis and facet joint osteoarthritis. Unchanged less marked L4-L5 degenerative spondylosis and severe facet joint osteoarthritis. 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 IMPRESSION: 1. Nonobstructing 2 mm stone inferior pole LEFT kidney without change. Negative for hydronephrosis. 2. No acute pathologic process of the alimentary tract evident. 3. Negative for hernias.
[2017-11-06] MEDS ORDERED: NS 0.9% 1000 ML* 1,000 ML IV ONE (20:36)
[2017-11-06] MEDS ORDERED: Ketorolac INJ* 30 MG/ML 1 ML VIAL IV ONE (20:45)
[2017-11-06 21:17] LABS: Urine Appearance Clear; Urine Blood Negative (Negative); Urine Color Yellow; Urine Ketones Trace (Negative); Urine Protein Negative (Negative); Urine Specific Gravity 1.015 (1.010-1.030); Urine Urobilinogen Negative (Negative)
[2017-11-06] MEDS ORDERED: Cyclobenzaprine TAB* 10 MG PO ONE (22:16)
--- NOTE | 2017-11-06 22:25 | ED ---
Óscar Smith Thomas, scribed for Nathan Mistry MD on 11/06/17 at 1810 . Abdominal Pain/Male - HPI Summary HPI Summary: The patient is a 67 year old male complaining of LLQ pain that has been present for the last two weeks. The pain is rated 8/10. The pain radiates to his testicles and groin. He has been taking tramadol, Aleve, and oxycodone for the pain. The patient denies urinary symptoms. Past surgical history includes nephrectomy. - History of Current Complaint Chief Complaint: EDAbdPain Stated Complaint: GROIN AREA PAIN Time Seen by Provider: 11/06/17 18:04 Hx Obtained From: Patient Onset/Duration: Lasting Weeks - 2, Still Present Timing: Constant Severity Currently: Severe Pain Intensity: 8 Pain Scale Used: 0-10 Numeric Location: Discrete At: RLQ Radiates: Yes Radiates to: Other - Groin, testicles Alleviating Factor(s): Nothing Associated Signs And Symptoms: Negative: Fever, Urinary Symptoms - Allergies/Home Medications Allergies/Adverse Reactions: Allergies Allergy/AdvReac Type Severity Reaction Status Date / Time MS Haloperidol [From Haldol] Allergy Intermediate Leg Cramps Verified 11/06/17 15:12 MS Propoxyphene Allergy Unknown Unknown Verified 11/06/17 15:12 [From Darvocet-N] Reaction Details MS Zolpidem [From Ambien] Allergy Unknown Unknown Verified 11/06/17 15:12 Reaction Details Home Medications: Home Medications Mirabegron (NF) [Myrbetriq (NF)] 50 mg PO DAILY 11/06/17 [History Confirmed 06/15] PMH/Surg Hx/FS Hx/Imm Hx Endocrine/Hematology History: Denies: Hx Anticoagulant Therapy, Hx Blood Disorders, Hx Blood Transfusions, Hx Bone Marrow Disease, Hx Diabetes, Hx Systemic Lupus Erythematosus, Hx Sickle Cell Disease, Hx Thyroid Disease, Hx Anemia, Hx Unexplained Bleeding, Other Endocrine/Hematological Disorders Cardiovascular History: Reports: Hx Coronary Artery Disease, Hx Hypercholesterolemia, Hx Hypertension, Other Cardiovascular Problems/Disorders - apparent venous insufficiency Denies: Hx Aneurysm, Hx Angina, Hx Angioplasty, Hx Auto Implanted Cardiovert Defib, Hx Cardiac Arrest, Hx Cardiomegaly, Hx Congenital Heart Disease, Hx Congestive Heart Failure, Hx Deep Vein Thrombosis, Hx Hypotension, Hx Myocardial Infarction, Hx Pacemaker/ICD, Hx Peripheral Vascular Disease, Hx Rheumatic Fever, Hx Syncope, Hx Valvular Heart Disease Respiratory History: Reports: Hx Asthma, Hx Seasonal Allergies, Hx Sleep Apnea Denies: Hx Chronic Bronchitis, Hx Chronic Obstructive Pulmonary Disease (COPD ), Hx Cystic Fibrosis, Hx Lung Cancer, Hx Pleural Effusion, Hx Pneumonia, Hx Pulmonary Edema, Hx Pulmonary Embolism, Other Respiratory Problems/Disorders GI History: Reports: Hx Gastroesophageal Reflux Disease, Hx Irritable Bowel, Other GI Disorders - Chronic constipation Denies: Hx Cirrhosis, Hx Crohn's Disease, Hx Diverticulosis, Hx Gall Bladder Disease, Hx Gastrointestinal Bleed, Hx Hiatal Hernia, Hx Jaundice, Hx Obstructive Bowel, Hx Ileostomy, Hx Pyloric Stenosis, Hx Ulcer History: Reports: Hx Acute Renal Failure - partial nephrectomy, Hx Benign Prostatic Hyperplasia, Hx Kidney Stones, Other Problems/Disorders - has only one functioning kidney Denies: Hx Chronic Renal Failure, Hx Dialysis, Hx Kidney Infection, Hx Renal Disease Musculoskeletal History: Reports: Hx Arthritis, Hx Back Problems - DJD, L-spine stenosis, Hx Tendonitis Denies: Hx Bursitis, Hx Congenital Bone Abnormalities, Hx Fibromyalgia, Hx Gout, Hx Orthopedic Injury, Hx Osteoporosis, Hx Scoliosis, Other Musculoskeletal History Sensory History: Reports: Hx Contacts or Glasses - Glasses left at home, Hx Vision Problem Denies: Hx Cataracts, Hx Eye Injury, Hx Eye Prosthesis, Hx Glaucoma, Hx Macular Degeneration, Hx Deafness, Hx Hearing Aid, Hx Hearing Problem, Other Sensory Impairments Opthamlomology History: Reports: Hx Contacts or Glasses - Glasses left at home, Hx Vision Problem Denies: Hx Cataracts, Hx Eye Injury, Hx Eye Prosthesis, Hx Glaucoma, Hx Macular Degeneration, Other Sensory Impairments Neurological History: Reports: Hx Dementia, Other Neuro Impairments/Disorders - 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 Bipolar, Parkinsons Denies: Hx Developmental Delay, Hx Headaches, Hx Migraine, Hx Seizures, Hx Spinal Cord Injury, Hx Transient Ischemic Attacks (TIA) Psychiatric History: Reports: Hx Anxiety, Hx Depression, Hx Inpatient Treatment , Hx Community Mental Health Tx, Hx Bipolar Disorder Denies: Hx Attention Deficit Hyperactivity Disorder, Hx Eating Disorder, Hx Panic Disorder, Hx Post Traumatic Stress Disorder, Hx Schizophrenia, Hx Suicide Attempt, Hx of Violent Episodes Against Others, Hx Substance Abuse, Other Psychiatric Issues/Disorders - Cancer History Hx Chemotherapy: No Hx Radiation Therapy: No - Surgical History Surgery Procedure, Year, and Place: lt PARTIAL nephrectomy age 10 ruptured kidney sports related,. Nose surgery from being broken. heart cath at [facility] [place] 2003 Hx Anesthesia Reactions: No - Immunization History Date of Tetanus Vaccine: unknown Date of Influenza Vaccine: 2011 Infectious Disease History: No Infectious Disease History: Denies: Hx Clostridium Difficile, Hx Hepatitis, Hx Human Immunodeficiency Virus (HIV), Hx of Known/Suspected MRSA, Hx Shingles, Hx Tuberculosis, Hx Known/ Suspected VRE, Traveled Outside the [place] in Last 30 Days - Family History Known Family History: Positive: Cardiac Disease, Hypertension, Diabetes - Social History Occupation: Unemployed Alcohol Use: None Hx Substance Use: No Substance Use Type: Reports: None Hx Tobacco Use: No Smoking Status (MU): Never Smoked Tobacco Have You Smoked in the Last Year: No Review of Systems Negative: Fever Positive: Abdominal Pain Positive: no symptoms reported All Other Systems Reviewed And Are Negative: Yes Physical Exam - Summary Physical Exam Summary: General: well-appearing, no pain distress Skin: warm, color reflects adequate perfusion, dry Head: normal Eyes: EOMI, NATA ENT: normal Neck: supple, nontender Respiratory: CTA, breath sounds present Cardiovascular: RRR Abdomen: Soft. Tender to the LLQ. Genital: There is mild tenderness to bilateral testicles with palpation. The testicles have equal size. There is no erythema. Bowel: present Musculoskeletal: normal, strength/ROM intact Neurological: normal, sensory/motor intact, A&O x3 Psychological: affect/mood appropriate Triage Information Reviewed: Yes Vital Signs On Initial Exam: Initial Vitals Temp Pulse Resp BP Pulse Ox 97.3 F 66 20 173/77 98 11/06/17 15:09 11/06/17 15:09 11/06/17 15:09 11/06/17 15:09 11/06/17 15:09 Vital Signs Reviewed: Yes Diagnostics - Vital Signs Vital Signs Temp Pulse Resp BP Pulse Ox 11/06/17 17:02 98.2 F 86 16 136/71 100 11/06/17 15:09 97.3 F 66 20 173/77 98 - Laboratory Lab Results: Lab Results 11/06/17 11/06/17 11/06/17 Range/Units 18:32 18:32 18:32 WBC 8.0 (3.5-10.8) 10^3/ul RBC 4.65 (4.0-5.4) 10^6/ul Hgb 15.1 (14.0-18.0) g/dl Hct 43 (42-52) % MCV 93 (80-94) fL MCH 32 H (27-31) pg MCHC 35 (31-36) g/dl RDW 14 (10.5-15) % Plt Count 182 (150-450) 10^3/ul MPV 7.4 (7.4-10.4) um3 Neut % (Auto) 53.8 (38-83) % Lymph % (Auto) 35.3 (25-47) % Bollinger % (Auto) 9.3 H (0-7) % Eos % (Auto) 1.2 (0-6) % Baso % (Auto) 0.4 (0-2) % Absolute Neuts (auto) 4.3 (1.5-7.7) 10^3/ul Absolute Lymphs (auto) 2.8 (1.0-4.8) 10^3/ul Absolute Monos (auto) 0.7 (0-0.8) 10^3/ul Absolute Eos (auto) 0.1 (0-0.6) 10^3/ul Absolute Basos (auto) 0 (0-0.2) 10^3/ul Absolute Nucleated RBC 0 10^3/ul Nucleated RBC % 0.2 INR (Anticoag Therapy) 0.89 (0.77-1.02) APTT 33.8 (26.0-36.3) seconds Sodium 138 L (139-145) mmol/L Potassium 3.7 (3.5-5.0) mmol/L Chloride 103 (101-111) mmol/L Carbon Dioxide 24 (22-32) mmol/L Anion Gap 11 (2-11) mmol/L BUN 23 (6-24) mg/dL Creatinine 0.94 (0.67-1.17) mg/dL Est GFR ( Amer) 102.3 (>60) Est GFR (Non-Af Amer) 79.6 (>60) BUN/Creatinine Ratio 24.5 H (8-20) Glucose 117 H (70-100) mg/dL Lactic Acid (0.5-2.0) mmol/L Calcium 9.8 (8.6-10.3) mg/dL Total Bilirubin 0.40 (0.2-1.0) mg/dL AST 15 (13-39) U/L ALT 17 (7-52) U/L Alkaline Phosphatase 40 (34-104) U/L C-Reactive Protein < 1.00 (< 5.00) mg/L Total Protein 6.9 (6.4-8.9) g/dL Albumin 4.3 (3.2-5.2) g/dL Globulin 2.6 (2-4) g/dL Albumin/Globulin Ratio 1.7 (1-3) Lipase 36 (11.0-82.0) U/L Urine Color Urine Appearance Urine pH (5-9) Ur Specific Florence (1.010-1.030) Urine Protein (Negative) Urine Ketones (Negative) Urine Blood (Negative) Urine Nitrate (Negative) Urine Bilirubin (Negative) Urine Urobilinogen (Negative) Ur Leukocyte Esterase (Negative) Urine Glucose (Negative) 11/06/17 11/06/17 11/06/17 Range/Units 18:32 21:00 21:39 WBC (3.5-10.8) 10^3/ul RBC (4.0-5.4) 10^6/ul Hgb (14.0-18.0) g/dl Hct (42-52) % MCV (80-94) fL MCH (27-31) pg MCHC (31-36) g/dl RDW (10.5-15) % Plt Count (150-450) 10^3/ul MPV (7.4-10.4) um3 Neut % (Auto) (38-83) % Lymph % (Auto) (25-47) % Bollinger % (Auto) (0-7) % Eos % (Auto) (0-6) % Baso % (Auto) (0-2) % Absolute Neuts (auto) (1.5-7.7) 10^3/ul Absolute Lymphs (auto) (1.0-4.8) 10^3/ul Absolute Monos (auto) (0-0.8) 10^3/ul Absolute Eos (auto) (0-0.6) 10^3/ul Absolute Basos (auto) (0-0.2) 10^3/ul Absolute Nucleated RBC 10^3/ul Nucleated RBC % INR (Anticoag Therapy) (0.77-1.02) APTT (26.0-36.3) seconds Sodium (139-145) mmol/L Potassium (3.5-5.0) mmol/L Chloride (101-111) mmol/L Carbon Dioxide (22-32) mmol/L Anion Gap (2-11) mmol/L BUN (6-24) mg/dL Creatinine (0.67-1.17) mg/dL Est GFR ( Amer) (>60) Est GFR (Non-Af Amer) (>60) BUN/Creatinine Ratio (8-20) Glucose (70-100) mg/dL Lactic Acid 3.5 H* 2.5 H* (0.5-2.0) mmol/L Calcium (8.6-10.3) mg/dL Total Bilirubin (0.2-1.0) mg/dL AST (13-39) U/L ALT (7-52) U/L Alkaline Phosphatase (34-104) U/L C-Reactive Protein (< 5.00) mg/L Total Protein (6.4-8.9) g/dL Albumin (3.2-5.2) g/dL Globulin (2-4) g/dL Albumin/Globulin Ratio (1-3) Lipase (11.0-82.0) U/L Urine Color Yellow Urine Appearance Clear Urine pH 8.0 (5-9) Ur Specific Florence 1.015 (1.010-1.030) Urine Protein Negative (Negative) Urine Ketones Trace A (Negative) Urine Blood Negative (Negative) Urine Nitrate Negative (Negative) Urine Bilirubin Negative (Negative) Urine Urobilinogen Negative (Negative) Ur Leukocyte Esterase Negative (Negative) Urine Glucose Negative (Negative) Result Diagrams: 11/06/17 18:32 11/06/17 18:32 Lab Statement: Any lab studies that have been ordered have been reviewed, and results considered in the medical decision making process. - CT CT Abdomen/Pelvis CT Interpretation: No Acute Changes - IMPRESSION: 1. Nonobstructing 2 mm stone inferior pole LEFT kidney without change. Negative for hydronephrosis. 2. No acute pathologic process of the alimentary tract evident. 3. Negative for hernias. Dr. Mistry has reviewed this report. CT Interpretation Completed By: Radiologist - Additional Comments Diagnostic Additional Comments: US TESTICULAR Interpreted by radiologist. IMPRESSION: 1. Stable benign 3 mm subcapsular cyst at the RIGHT testicle. 2. Negative for suspicious focal testicular lesions, testicular torsion, or epididymoorchitis. 3. Small mildly complex bilateral hydroceles without significant change. Dr. Mistry has reviewed this report. Abdominal Pain Fem Course/Dx - Course Course Of Treatment: PATIENT HAS HAD THIS PAIN AT LEAST SINCE 08/15. LACTIC ACID DECREASED AFTER IVF. DISCUSSED RESULTS WITH THE PATIENT. WILL TRY FLEXERIL QHS. THE CHOICE OF FURTHER PAIN MEDS AND MANAGMENT OF THIS CHRONIC PAIN CONDITION WILL BE DIRECTED TO THE PMD. RETURN IF WORSE. Assessment/Plan: Medications reviewed. Allergies noted. BP noted and patient advised to follow up with primary care. - Diagnoses Provider Diagnoses: Hypertension, Chronic pain of left groin, Left sided abdominal pain, Scrotal pain Discharge - Sign-Out/Discharge Documenting (check all that apply): Discharge - Discharge Plan Condition: Stable Disposition: HOME Prescriptions: Cyclobenzaprine TAB* [Flexeril 10 MG TAB*] 10 mg PO QPM PRN #5 tab PRN Reason: Pain Patient Education Materials: Groin Pain (ED), Chronic Abdominal Pain (ED), Scrotal Pain (ED) Referrals: Guille Astudillo MD [Primary Care Provider] - Additional Instructions: FOLLOW UP WITH YOUR DOCTOR. CALL TOMORROW FOR FOLLOW UP. RETURN TO THE EMERGENCY DEPARTMENT FOR ANY WORSENING OF YOUR CONDITION OR QUESTIONS OR CONCERNS. - Billing Disposition and Condition Condition: STABLE Disposition: HOME The documentation as recorded by the Óscar cano Thomas accurately reflects the service I personally performed and the decisions made by me, Nathan Mistry MD.
[2017-11-06 22:51] VITALS: BP 133/74
== END 2017-11-06 22:49 | disposition home or self-care (01) ==
LOC: ED 15:07
DX: R10.32 Left lower quadrant pain (principal); N50.82 Scrotal pain; N20.0 Calculus of kidney; Z87.442 Personal history of urinary calculi; N44.2 Benign cyst of testis; N43.2 Other hydrocele; I10 Essential (primary) hypertension; I25.10 Atherosclerotic heart disease of native coronary artery without angina pectoris; E78.00 Pure hypercholesterolemia, unspecified; J45.909 Unspecified asthma, uncomplicated; K21.9 Gastro-esophageal reflux disease without esophagitis; N17.9 Acute kidney failure, unspecified; N40.0 Benign prostatic hyperplasia without lower urinary tract symptoms; G30.9 Alzheimer's disease, unspecified; F02.80 Dementia in other diseases classified elsewhere, unspecified severity, without behavioral disturbance, psychotic disturbance, mood disturbance, and anxiety; F41.9 Anxiety disorder, unspecified; F32.9 Major depressive disorder, single episode, unspecified; Z88.8 Allergy status to other drugs, medicaments and biological substances
CPT/HCPCS: 36415; 74176; 76870; 80053; 81003; 83605; 83690; 85025; 85610; 85730; 86140; 96361; 96374; 99283; A9270-GY; J1885

== ENCOUNTER 2018-03-06 21:49 | Emergency (ER) | payer MEDICARE, MEDICAID ==
[2018-03-06] MEDS ORDERED: Acetaminophen TAB* 325 MG PO ONE (23:07)
--- NOTE | 2018-03-06 23:07 | ED ---
Head Injury - HPI Summary HPI Summary: 67. Since to ER brought in by ambulance with complaints of head injury which occurred around 8:30 PM 03/06/18. Patient states he was trying to get up from a chair when he fell backwards striking the back of his head on a chair. Has a small abrasion. States he also feels a small bump. Denies loss of consciousness. States he had a headache at time of incident however has since subsided improved. No headache, vision changes, vomiting or confusion. Patient denies any pain at this time. Denies neck or back pain. Denies any bleeding. Is not on anticoagulants. Lives at [facility] and stated he had a come here and ordered Tylenol. No other complaints at this time. - History Of Current Complaint Chief Complaint: EDHeadInjury Stated Complaint: FALL Time Seen by Provider: 03/06/18 22:03 Hx Obtained From: Patient, EMS Mechanism Of Injury: Blunt Trauma Onset/Duration: Started Minutes Ago, Traumatic Severity Currently: None Pain Intensity: 0 Pain Scale Used: 0-10 Numeric Location of Head Injury: Parietal Character: Aching Alleviating Factor(s): Rest Associated Signs And Symptoms: Negative - Allergies/Home Medications Allergies/Adverse Reactions: Allergies Allergy/AdvReac Type Severity Reaction Status Date / Time haloperidol [From Haldol] Allergy Leg Cramps Verified 02/26/18 13:26 zolpidem [From Ambien] Allergy Unknown Verified 02/26/18 13:26 Reaction Details PMH/Surg Hx/FS Hx/Imm Hx Endocrine/Hematology History: Denies: Hx Anticoagulant Therapy, Hx Blood Disorders, Hx Blood Transfusions, Hx Bone Marrow Disease, Hx Diabetes, Hx Systemic Lupus Erythematosus, Hx Sickle Cell Disease, Hx Thyroid Disease, Hx Anemia, Hx Unexplained Bleeding, Other Endocrine/Hematological Disorders Cardiovascular History: Reports: Hx Coronary Artery Disease, Hx Hypercholesterolemia, Hx Hypertension, Other Cardiovascular Problems/Disorders - apparent venous insufficiency Denies: Hx Aneurysm, Hx Angina, Hx Angioplasty, Hx Auto Implanted Cardiovert Defib, Hx Cardiac Arrest, Hx Cardiomegaly, Hx Congenital Heart Disease, Hx Congestive Heart Failure, Hx Deep Vein Thrombosis, Hx Hypotension, Hx Myocardial Infarction, Hx Pacemaker/ICD, Hx Peripheral Vascular Disease, Hx Rheumatic Fever, Hx Syncope, Hx Valvular Heart Disease Respiratory History: Reports: Hx Asthma, Hx Seasonal Allergies, Hx Sleep Apnea Denies: Hx Chronic Bronchitis, Hx Chronic Obstructive Pulmonary Disease (COPD ), Hx Cystic Fibrosis, Hx Lung Cancer, Hx Pleural Effusion, Hx Pneumonia, Hx Pulmonary Edema, Hx Pulmonary Embolism, Other Respiratory Problems/Disorders GI History: Reports: Hx Gastroesophageal Reflux Disease, Hx Irritable Bowel, Other GI Disorders - Chronic constipation Denies: Hx Cirrhosis, Hx Crohn's Disease, Hx Diverticulosis, Hx Gall Bladder Disease, Hx Gastrointestinal Bleed, Hx Hiatal Hernia, Hx Jaundice, Hx Obstructive Bowel, Hx Ileostomy, Hx Pyloric Stenosis, Hx Ulcer History: Reports: Hx Acute Renal Failure - partial nephrectomy, Hx Benign Prostatic Hyperplasia, Hx Kidney Stones, Other Problems/Disorders - has only one functioning kidney Denies: Hx Chronic Renal Failure, Hx Dialysis, Hx Kidney Infection, Hx Renal Disease Musculoskeletal History: Reports: Hx Arthritis, Hx Back Problems - DJD, L-spine stenosis, Hx Tendonitis Denies: Hx Bursitis, Hx Congenital Bone Abnormalities, Hx Fibromyalgia, Hx Gout, Hx Orthopedic Injury, Hx Osteoporosis, Hx Scoliosis, Other Musculoskeletal History Sensory History: Reports: Hx Contacts or Glasses - Glasses left at home, Hx Vision Problem Denies: Hx Cataracts, Hx Eye Injury, Hx Eye Prosthesis, Hx Glaucoma, Hx Macular Degeneration, Hx Deafness, Hx Hearing Aid, Hx Hearing Problem, Other Sensory Impairments Opthamlomology History: Reports: Hx Contacts or Glasses - Glasses left at home, Hx Vision Problem Denies: Hx Cataracts, Hx Eye Injury, Hx Eye Prosthesis, Hx Glaucoma, Hx Macular Degeneration, Other Sensory Impairments Neurological History: Reports: Hx Dementia, Other Neuro Impairments/Disorders - 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 Bipolar, Parkinsons Denies: Hx Developmental Delay, Hx Headaches, Hx Migraine, Hx Seizures, Hx Spinal Cord Injury, Hx Transient Ischemic Attacks (TIA) Psychiatric History: Reports: Hx Anxiety, Hx Depression, Hx Inpatient Treatment , Hx Community Mental Health Tx, Hx Bipolar Disorder Denies: Hx Attention Deficit Hyperactivity Disorder, Hx Eating Disorder, Hx Panic Disorder, Hx Post Traumatic Stress Disorder, Hx Schizophrenia, Hx Suicide Attempt, Hx of Violent Episodes Against Others, Hx Substance Abuse, Other Psychiatric Issues/Disorders - Cancer History Hx Chemotherapy: No Hx Radiation Therapy: No - Surgical History Surgery Procedure, Year, and Place: lt PARTIAL nephrectomy age 10 ruptured kidney sports related,. Nose surgery from being broken. heart cath at [facility] 2003 Hx Anesthesia Reactions: No - Immunization History Date of Tetanus Vaccine: unknown Date of Influenza Vaccine: 2011 Infectious Disease History: No Infectious Disease History: Denies: Hx Clostridium Difficile, Hx Hepatitis, Hx Human Immunodeficiency Virus (HIV), Hx of Known/Suspected MRSA, Hx Shingles, Hx Tuberculosis, Hx Known/ Suspected VRE, Traveled Outside the [place] in Last 30 Days - Family History Known Family History: Positive: None, Cardiac Disease, Hypertension, Diabetes - Social History Alcohol Use: None Hx Substance Use: No Substance Use Type: Reports: None Hx Tobacco Use: No Smoking Status (MU): Never Smoked Tobacco Have You Smoked in the Last Year: No Review of Systems Constitutional: Negative Eyes: Negative ENT: Negative Cardiovascular: Negative Respiratory: Negative Gastrointestinal: Negative Musculoskeletal: Negative Skin: Negative Neurological: Negative All Other Systems Reviewed And Are Negative: Yes Physical Exam Triage Information Reviewed: Yes Vital Signs On Initial Exam: Initial Vitals Temp Pulse Resp BP Pulse Ox 98 F 78 15 137/80 96 03/06/18 21:52 03/06/18 21:52 03/06/18 21:52 03/06/18 21:52 03/06/18 21:52 Vital Signs Reviewed: Yes Appearance: Positive: Well-Appearing, No Pain Distress, Well-Nourished Skin: Positive: Warm, Skin Color Reflects Adequate Perfusion, Other - No erythema, ecchymosis or edema. Small superficial nonbleeding abrasion noted to the posterior scalp. Negative: Dry, Cold, Cyanosis @, Pale, Erythema @ Head/Face: Positive: Normal Head/Face Inspection, Scalp - Small abrasion superficial nonbleeding as noted above, Other - No raccoon eyes or garrett signs no hematoma. Negative: Temporal Artery Tenderness, TMJ Tenderness Eyes: Positive: Normal, EOMI, NATA, Conjunctiva Clear ENT: Positive: Normal ENT inspection, Hearing grossly normal, Pharynx normal, TMs normal, Uvula midline. Negative: Tonsillar swelling, Tonsillar exudate Neck: Positive: Supple, Nontender Respiratory/Lung Sounds: Positive: Clear to Auscultation, Breath Sounds Present. Negative: Rales, Rhonchi, Wheezes Cardiovascular: Positive: Normal, RRR, Pulses are Symmetrical in both Upper and Lower Extremities. Negative: Murmur, Rub Abdomen Description: Positive: Nontender, Soft Bowel Sounds: Positive: Present Musculoskeletal: Positive: Normal, Strength/ROM Intact Neurological: Positive: Normal, Sensory/Motor Intact, Alert, Oriented to Person Place, Time, NV Bundle Intact Distally, Normal Gait - With walker and for patient's norm and he has Parkinson's Diagnostics - Vital Signs Vital Signs Temp Pulse Resp BP Pulse Ox 03/06/18 21:52 98 F 78 15 137/80 96 - Laboratory Lab Statement: Any lab studies that have been ordered have been reviewed, and results considered in the medical decision making process. Head Injury Course/Dx Course Of Treatment: Due to patient's complaints and physical exam findings does not appear to need any further evaluation or imaging at this time. No signs of obvious significant trauma. Normal physical exam and vital signs. Given Tylenol to help with any headache. Continue as needed at home. Aware worsening signs symptoms watch out for. Follow-up with PCP as needed. No signs of cervical trauma and no signs of concussion. - Diagnoses Differential Diagnosis/HQI/PQRI: Contusion, Other - Abrasion Provider Diagnoses: Scalp contusion, Scalp abrasion Discharge - Sign-Out/Discharge Documenting (check all that apply): Patient Departure - Discharge Plan Condition: Good Disposition: HOME Patient Education Materials: Head Injury (ED), Scalp Contusion in Adults (ED) Referrals: Guille Astudillo MD [Primary Care Provider] - Additional Instructions: Take Tylenol and perphenazine for any headache or discomfort from fall. Took Tylenol while in the ER. Follow-up with primary care provider. Any new or worsening symptoms, such as vomiting, vision changes, worse headache of her life, confusion, please seek medical attention promptly as discussed. - Billing Disposition and Condition Condition: GOOD Disposition: Home
[2018-03-07 00:10] VITALS: BP 140/79
== END 2018-03-07 00:09 | disposition home or self-care (01) ==
LOC: ED 21:49
DX: S00.03XA Contusion of scalp, initial encounter (principal); S00.01XA Abrasion of scalp, initial encounter; W01.198A Fall on same level from slipping, tripping and stumbling with subsequent striking against other object, initial encounter; Y92.9 Unspecified place or not applicable; I25.10 Atherosclerotic heart disease of native coronary artery without angina pectoris; E78.00 Pure hypercholesterolemia, unspecified; I10 Essential (primary) hypertension; J45.909 Unspecified asthma, uncomplicated; K21.9 Gastro-esophageal reflux disease without esophagitis; Z90.5 Acquired absence of kidney
CPT/HCPCS: 99281; A9270-GY

== ENCOUNTER 2018-05-06 18:46 | Emergency (ER) | payer MEDICARE, MEDICAID ==
--- OUTSIDE RECORDS SUMMARY | 2018-05-06 19:32 | XMS REPORT ---
:1950 External Reference #:[id number] Author Organization [facility] Address [address] [place] [address] [place] [address] Phone [phone] Care Team Providers Name Role Phone Tamie Russo MD Care Team Information Business Education Teacher Unavailable Guille Astudillo MD Primary Care Physician Unavailable Payers Type Date Identification Numbers Payment Provider Subscriber Medicare Primary Policy Number: [id number] Medicare Sachin Cedeno PayID: [id number] [address] [place] [address] [facility] Part B Effective: 2014 Policy Number: [id number] Medicaid Sachin Cedeno Group Name: 1 1 [address] PayID: [id number] [place] [address] Problems Date Description Provider Status Onset: 09/23/2014 Hypersomnia with sleep apnea Moe Nelson M.D. Active Onset: 05/13/2015 Sprain of sacroiliac ligament Cayetano Nicole M.D. Active Onset: 05/13/2015 Sciatica Cayetano Nicole M.D. Active Onset: 09/13/2015 Secondary parkinsonism Flakita Best MD Active Onset: 09/13/2015 Skin sensation disturbance Flakita Best MD Active Onset: 09/13/2015 Abnormal gait Flakita Best MD Active Onset: 09/27/2015 Urinary incontinence Flakita Best MD Active Onset: 11/07/2015 Spinal stenosis of lumbar region Teddy Diaz M.D. Active Onset: 05/05/2018 Bipolar disorder Dexter Clancy M.D. Active Onset: 01/08/2018 Parkinson's disease Flakita Best MD Active Onset: 06/18/2017 Abnormal involuntary movement Flakita Best MD Active Onset: 06/18/2017 Nervous system symptoms Flakita Best MD Active Onset: 10/02/2016 Morbid obesity Salma Guthrie MD Active Onset: 10/02/2016 Obstructive sleep apnea syndrome Salma Guthrie MD Active Onset: 10/02/2016 Disturbance in sleep behavior Salma Guthrie MD Active Family History Date Family Member(s) Problem(s) Comments General Emphysema Father Alzheimer's Disease Mother Emphysema Mother due to Emphysema () - at age 70 Siblings 3 Siblings Alive and well Social History Type Date Description Comments Marital Status Single Lives With Alone [employer] Occupation Disabled Cigarette Use Never Smoked Cigarettes ETOH Use Denies alcohol use Recreational Drug Use Former Drug User Smoking Patient has never smoked Daily Caffeine Consumes on average 1 cup of regular coffee per day Exercise Type/Frequency Exercises regularly Allergies, Adverse Reactions, Alerts Date Description Reaction Status Severity Comments 03/30/2014 Darvocet Urticaria active 05/13/2015 Haldol active 05/13/2015 Ambien active Medications Medication Date Status Form Strength Qnty SIG Indications Ordering Provider Carbidopa-Levodo 06/18 Active Tablets 25-100mg 90tab 1 tab R25.1 Dexter obando /2016 felipe Clancy M.D. times per day Senna-Docusate 12/15 Active Tablets 8.6-50mg 30tab 2 tablets Qutaybeh S. s by mouth Maghaydah, once M.D. daily Seroquel Active Tablets 200mg 30tab 1 by Unknown /0000 s mouth every night at bedtime Tamsulosin HCL Active Capsules 0.4mg 1 by Thu, /0000 mouth MD Augustin every day Lisinopril Active Tablets 30mg 1 by Unknown /0000 mouth every day Ascorbic Acid Active Tablets 250mg 1 by Unknown /0000 mouth every day Ventolin HFA Active Aerosol 108(90Bas 2 puffs Unknown /0000 e) by mouth mcg/Act four times a day as needed Potassium Active 20Meq 1 tablet Unknown Chloride ER /0000 twice a day Ranitidine HCL Active 150mg 1 tablet Unknown /0000 daily at bedtime Vitamin D2 Active 50,000Iu 1 tablet Unknown /0000 once a month Acetaminophen Active 2 tablets Unknown Extra Strength /0000 every 8hrs prn Trazodone HCL Active 150mg 1 tablet Unknown /0000 at bedtime Amantadine HCL Active Tablets 100mg 1 by Unknown /0000 mouth twice daily Depakote ER Active Tablets ER 500mg 2 by Unknown /0000 24HR mouth every night at bedtime Miralax Active Powder 3350NF 17 gm Unknown /0000 every day mixed w/ 8 oz water/jui ce Vesicare Active Tablets 5mg 1 tablet Thu, /0000 po daily MD Augustin Imodium A-D Active Capsules 2mg 1 capsule Unknown /0000 after each loose bm Tums Active 500mg 2 chew Unknown /0000 tabs po every 12 hours as needed Naproxen Active Tablets 220mg 1 tablet Unknown /0000 by mouth q8 hours as needed Lorazepam Active Tablets 0.5mg 30tab 1 tablet Unknown /0000 s every morning Microzide Active Capsules 12.5mg 1 tab Unknown /0000 daily w/lisinop ril Meloxicam Active Tablets 7.5mg take one Unknown /0000 tab twice daily as needed for pain, avoid other nsaids Hydrochlorothiaz Active Tablets 12.5mg 1 by Unknown danni /0000 mouth every day Myrbetriq Active Tablets ER 50mg 1 by Unknown /0000 24HR mouth every day Melatonin ER Active Tablets ER 5mg 1 by Unknown /0000 mouth every night at bedtime Quetiapine Active Tablets 200mg 1 by Unknown Fumarate /0000 mouth at bedtime.. Cyclobenzaprine Active Tablets 10mg 1 tablet Unknown HCL /0000 by mouth in the evening as needed muscle spasms [place] Active Tablets 5-325mg one tab Unknown /0000 by mouth every 4-6 hours as needed pain Pyridium Active Tablets 100mg one by Unknown /0000 mouth three times a day as Needed Gabapentin Active Capsules 100mg 3 Unknown /0000 capsules by mouth 3 times a day Mobic 05/13 Hx Tablets 7.5mg 30tab once s daily Corey, - with food M.D. 05/08 as needed /2015 Neurontin 05/13 Hx Capsules 300mg 30cap 1 by Cayetano /2014 s mouth Corey, - every M.D. 02/13 night at /2017 bedtime Aspir-81 03/[address] 81mg 1 by Dylan Gamino /2013 mouth Pollack, - every day M.D. 09/12 prn Celexa 10/08 Hx Tablets 60mg 90tab 1 PO qd Juan Carlos Barnes felipe Lambert M.D. - 03/30 Lamictal 10/08 Hx Tablets 300mg 1 PO qd Juan Carlos Barnes Ju Lambert M.D. - 03/30 Seroquel 10/08 Hx Tablets 25mg 60tab in am and Juan Carlos Gonsalez2007 felipe Lambert M.D. - 03/30 50 mg at hs Lexapro 01/16 Hx Tablets 30mg 1 PO qd Juan Carlos Lambert M.D. - 10/08 Ambien CR 01/16 Hx Tablets ER 12.5mg 1 Tablet Juan Carlos Andino PO Q hs Renee Lambert - prn 03/30 Aricept 01/16 Hx Tablets 5mg 30tab One QHS Juan Carlos Lambert M.D. - 03/30 Trazodone HCL 01/16 Hx Tablets 450mg 1 PO qhs Juan Carlos Lambert M.D. - 03/30 Lamictal 01/16 Hx Tablets 200mg 1 PO qd Juan Carlos Lambert M.D. - 10/08 Rozerem 01/16 Hx Tablets 16mg qhs Juan Carlos Lambert M.D. - 03/30 Ativan 01/16 Hx Tablets 1mg 1/2 tab Juan Carlos Andino in am and Renee Lambert - noon 03/30 2 mg at hs Finasteride 01/16 Hx Tablets 5mg 1 PO qhs Juan Carlos Lambert M.D. - 10/08 Ranitidine HCL 01/16 Hx Capsules 150mg 1 To 2 qd Juan Carlos Barnes Ashley Lambert M.D. - 03/30 Atenolol 01/31 Hx Tablets 25mg 30tab 1/2 po qd Juan Carlos Barnes s until Renee Lambert - 02/01/0710/08 and 1/2 tablet po qod until 02/14/07 and then discontin ue. Thorazine 01/30 Hx Tablets 100mg 0ne qd Juan Carlos Barnes Renee Lambert - 01/16 Depakote 01/30 Hx Tablets 1500 1 po qd Juan Carlos Barnes Renee Lambert - 01/16 Trazodone 01/30 Hx Tablets 200mg 30tab one daily Juan Carlos Barnes felipe Lambert M.D. - 01/16 Nexium 01/30 Hx Capsules 40mg 30cap 1 PO qd Juan Carlos Barnes s Renee Lambert - 01/16 Colace 01/30 Hx Capsules 100mg 1 po qd Juan Carlos Barnes Renee Lambert - 01/16 Risperdal Consta 01/30 Hx Injection 25mg one q 2 Juan Carlos Barnes weeks Renee Lambert - 01/16 Ativan 01/30 Hx Tablets 1mg 30tab one qd Juan Carlos Barnes s prn Renee Lambert - 01/16 Depakote er 01/05 Hx Tablets 500mg 6 qhs Juan Carlos Barnes Renee Lambert - 01/31 Neurontin 01/05 Hx Capsules 300mg 90cap 1 po bid Juan Carlos Barnes s Renee Lambert - 01/31 Remeron 01/05 Hx Tablets 15mg 30tab one po q Juan Carlos Barnes s hs Renee Lambert - 01/31 Klonopin 01/05 Hx Tablets 2mg 2mg qhs Juan Carlos Barnes Renee Lambert - 01/31 Naproxen 01/05 Hx Tablets 500mg 1 po bid Juan Carlos Barnes Renee Lambert - 01/31 Klonopin 01/05 Hx Tablets 2mg 2mg qhs Juan Carlos Barnes /2004 prn Renee Lambert - 01/31 Diclofenac 01/05 Hx Tablets 50mg 1 po tid Juan Carlos Barnes prn Renee Lambert - 01/16 Joy 07/04 Hx Capsules 300mg 1 po am Juan Carlos Barnes Renee Lambert - 01/05 Depakote 07/04 Hx Tablets 500mg 3 tabs Juan Carlos Barnes qhs Renee Lambert - 01/05 Nitrostat 05/26 Hx Tablets 0.4mg 25tab one Juan Carlos Barnes s q5min up Renee Lambert - to 3 01/31 doses prn Lipitor 02/23 Hx Tablets 80mg 30tab 1 po qd Juan Carlos Barnes felipe Lambert M.D. - 01/16 Protonix 02/22 Hx Tablets 40mg qd Juan Carlos Barnes Martita Lambert M.D. - 01/31 Colace 02/22 Hx Capsules 100mg 30cap 1 po bid Juan Carlos Barnes felipe Lambert M.D. - 01/31 Seroquel 02/22 Hx Tablets 900mg qd Juan Carlos Barnes Renee Lambert - 01/31 Nitrostat 08/24 Hx Tablets 0.3mg 100ta one Juan Carlos Barnes bs q5min up Renee Lambert - to 3 05/26 doses prn Tegretol 08/19 Hx Tablets 500mg 30tab 1 po bid Juan Carlos Barnes felipe Lambert M.D. - 01/31 Seroquel 08/19 Hx Tablets 200mg 1 po qam Juan Carlos Barnes Renee Lambert - 02/23 Seroquel 08/19 Hx Tablets 700mg qhs Juan Carlos Barnes Renee Lambert - 02/23 Clonazepam 08/19 Hx Tablets 1mg 30tab 1 po qam, Juan Carlos Barnes s 2 hs Renee Lambert - 01/05 leschol 08/19 Hx Tablets 80mg 1 po qd Juan Carlos Barnes Renee Lambert - 02/23 Klor-Con M10 08/19 Hx Tablets 10Meq 360ta qd Juan Carlos Barnes bs Renee Lambert - 09/26 Aspirin Enteric 08/19 Hx Tablets 81mg qd Juan Carlos Barnes Renee Lambert - 09/12 Vitram 08/19 Hx Tablets 50mg q6h prn Juan Carlos Barnes pain Renee Lambert - 02/23 Flurazepam 08/19 Hx Capsules 30mg qhs Juan Carlos Barnes Renee Lambert - 02/23 Joy 08/19 Hx Capsules 600mg 30cap 1 po qam, Juan Carlos Barnes s 1 po qhs Renee Lambert - 07/04 Nitro-Dur 08/19 Hx Patches 0.2mg/Laura 30uni 1 to Juan Carlos Barnes r ts chest Renee Lambert - [place] qa 08/24 off q Tegretol 04/20 Hx Tablets 400mg 90tab qam Juan Carlos Barnes felipe Lambert M.D. - 08/19 Tegretol 04/20 Hx Tablets 500mg 90tab qpm Juan Carlos Barnes s Renee Lambert - 08/19 Atenolol 04/20 Hx Tablets 50mg 90tab 1 po qd Juan Carlos Barnes felipe Lambert M.D. - 01/31 Lasix 04/20 Hx Tablets 20mg 30tab 1 po qd Juan Carlos Barnes felipe Lambert M.D. - 01/31 Seroquel 04/20 Hx Tablets 100mg 90tab qam Juan Carlos Barnes s Renee Lambert - 08/19 Seroquel 04/20 Hx Tablets 600mg 90tab qeve Juan Carlos Barnes Darryl Lambert M.D. - 08/19 Klonopin 04/20 Hx Tablets 1mg 90tab tid Juan Carlos Lambert M.D. - 08/19 Lescol 04/20 Hx Capsules 20mg 90cap one qhs Juan Carlos Barnes Darryl Lambert M.D. - 08/19 Seroquel Hx Tablets 300mg at at Unknown /0000 bedtime - 09/12 Divalproex Hx Tablets ER 500mg 2 PO QHS Unknown Sodium ER /0000 24HR - 12/14 Donepezil HCL Hx Tablets 10mg Karan, /0000 MD Tamie - 09/12 Voltaren Hx Gel 1% Unknown / - 09/12 Docqlace Hx Capsules 100mg Unknown / - 09/12 Cyclobenzaprine Hx Tablets 10mg Darlow, HCL / Guille Mi MD - 09/12 Diphenhydramine Hx Capsules 25mg Unknown HCL /0000 - 09/12 Hydrocodone-Ibup Hx Tablets 7.5-200mg Unknown rofen / - 09/12 Joy Hx Capsules 300mg Unknown Carbonate / - 09/12 Oxycodone-Acetam Hx Tablets 5-325mg golden Goveaphen / MD Alicia - 09/12 Lorazepam Hx Tablets 0.5mg Unknown / - 09/12 Proair HFA Hx Aerosol 108(90Bas Unknown /0000 e) - mcg/Act 05/10 Vesicare Hx Tablets 5mg Unknown / - 09/12 Ibuprofen 00 Hx Tablets 600mg 1 by Unknown /0000 mouth - three 05/10 times day as needed Metaxalone Hx Tablets 400mg 1 tablet Unknown /0000 by nouth - two times 02/13 Tramadol HCL Hx Tablets 50mg 2 tablets Unknown /0000 every 8 - hours as 05/10 for pain Furosemide 00/00 Hx Tablets 20mg 2 by Unknown /0000 mouth - every 05/10 morning 3 tablets in evening Multivitamin 00/00 Hx Tablets one by Unknown Adult /0000 mouth - every day 12/14 Miralax 00/00 Hx Packet 3350NF 17 gm Unknown /0000 every day - 05/10 Cogentin 00/00 Hx Tablet 0.5mg 1 by Unknown /0000 mouth - twice a Colace Hx Capsules 100mg 1 by Unknown /0000 mouth - twice a Oxybutynin 00/00 Hx 5mg 1 tablet Unknown Chloride ER /0000 daily - 05/08 Calcium Antacid 00/00 Hx 2 tablets Unknown /0000 every - 12hrs prn 02/13 Lactulose 00/00 Hx 30ml Unknown /0000 daily prn - 05/10 Neurontin 00/00 Hx 300MFG 1 tablet Unknown /0000 daily - 02/13 Oxycodone-Acetam 00/00 Hx 7.5/325 1 tablet Unknown inophen /0000 at - bedtime 05/10 pr Meloxicam 00/00 Hx Tablets 7.5mg take 1 Unknown /0000 tab by - mouth 02/13 qdail with food Lorazepam 00/00 Hx Tablets 0.5mg 1 po qhs Unknown /0000 - 02/13 Polyethylene 00/00 Hx Powder every day Unknown Glycol /0000 with a - large 06/18 glass water Divalproex 00/[address] 500mg take one Unknown Sodium /0000 tablet by - mouth 06/18 twice 2016 17GM 00/ Hx Packet 3350NF as needed Unknown /0000 - 05/04 Acetaminophen 00/00 Hx Tablets 500mg as Needed Unknown /0000 - 01/07 Vital Signs Date Vital Result Comment 05/05/2018 Height 67 inches 5'7" Weight 252.00 lb Heart Rate 68 /min BP Systolic 146 mmHg BP Diastolic 84 mmHg Respiratory Rate 16 /min BMI (Body Mass Index) 39.5 kg/m2 01/08/2018 Height 67 inches 5'7" Weight 248.00 lb Heart Rate 70 /min BP Systolic 122 mmHg BP Diastolic 82 mmHg BMI (Body Mass Index) 38.8 kg/m2 06/18/2017 Height 67 inches 5'7" Weight 270.00 lb Heart Rate 78 /min BP Systolic 142 mmHg BP Diastolic 88 mmHg BMI (Body Mass Index) 42.3 kg/m2 02/14/2017 Height 67 inches 5'7" Weight 266.00 lb with out shoes Heart Rate 82 /min BP Systolic Sitting 130 mmHg Rue lg cuff BP Diastolic Sitting 76 mmHg Rue lg cuff Respiratory Rate 17 /min BMI (Body Mass Index) 41.7 kg/m2 10/02/2016 Height 67 inches 5'7" Weight 263.00 lb Heart Rate 76 /min BP Systolic Sitting 152 mmHg BP Diastolic Sitting 90 mmHg Respiratory Rate 14 /min O2 % BldC Oximetry 98 % BMI (Body Mass Index) 41.2 kg/m2 05/09/2016 Height 67 inches 5'7" Weight 265.75 lb w/shoes Heart Rate 88 /min BP Systolic Sitting 158 mmHg LA lg cuff BP Diastolic Sitting 98 mmHg LA lg cuff BMI (Body Mass Index) 41.6 kg/m2 Ejection Fraction 60-65% Echo 03/28/16 12/16/2015 Height 67 inches 5'7" Weight 233.00 lb w/shoes Heart Rate 70 /min BP Systolic Sitting 140 mmHg LA lg cuff BP Diastolic Sitting 80 mmHg LA lg cuff BMI (Body Mass Index) 36.5 kg/m2 Ejection Fraction 55-60% Echo 12/30/14 11/07/2015 Height 67 inches 5'7" Weight 255.00 lb Heart Rate 78 /min BP Systolic Sitting 160 mmHg BP Diastolic Sitting 90 mmHg Pain Level 7 BMI (Body Mass Index) 39.9 kg/m2 09/27/2015 Height 67 inches 5'7" Heart Rate 64 /min BP Systolic Sitting 146 mmHg BP Diastolic Sitting 82 mmHg Respiratory Rate 16 /min 09/13/2015 Height 67 inches 5'7" Weight 230.00 lb Patient reported Heart Rate 80 /min BP Systolic Sitting 138 mmHg BP Diastolic Sitting 84 mmHg Respiratory Rate 16 /min BMI (Body Mass Index) 36.0 kg/m2 05/13/2015 Height 67 inches 5'7" Weight 235.00 lb Heart Rate 94 /min BP Systolic Sitting 160 mmHg BP Diastolic Sitting 86 mmHg Respiratory Rate 22 /min Pain Level 7 BMI (Body Mass Index) 36.8 kg/m2 09/23/2014 Height 68 inches 5'8" Weight 247.12 lb with shoes on Heart Rate 85 /min BP Systolic Sitting 142 mmHg BP Diastolic Sitting 82 mmHg Respiratory Rate 20 /min Body Temperature 98.9 F O2 % BldC Oximetry 98 % BMI (Body Mass Index) 37.6 kg/m2 Neck Circumference in inches 17.25 03/30/2014 Height 68 inches 5'8" Weight 246.00 lb Heart Rate 78 /min BP Systolic Sitting 126 mmHg BP Diastolic Sitting 80 mmHg Pain Level 5 ack BMI (Body Mass Index) 37.4 kg/m2 06/09/2009 Height 68 inches 5'8" Weight 238.00 lb Heart Rate 90 /min BP Systolic Sitting 120 mmHg BP Diastolic Sitting 90 mmHg BP Systolic Standing 140 mmHg BP Diastolic Standing 90 mmHg BMI (Body Mass Index) 36.2 kg/m2 10/09/2007 Height 68 inches 5'8" Weight 244.00 lb Heart Rate 92 /min BP Systolic Sitting 130 mmHg BP Diastolic Sitting 84 mmHg Respiratory Rate 20 /min O2 % BldC Oximetry 90 % BMI (Body Mass Index) 37.1 kg/m2 01/16/2007 Height 68 inches 5'8" Weight 221.00 lb Heart Rate 59 /min BP Systolic Sitting 120 mmHg BP Diastolic Sitting 70 mmHg BP Systolic Standing 110 mmHg BP Diastolic Standing 70 mmHg BMI (Body Mass Index) 33.6 kg/m2 01/31/2006 Height 68 inches 5'8" Weight 221.00 lb Heart Rate 45 /min BP Systolic Sitting 130 mmHg R BP Diastolic Sitting 78 mmHg R BP Systolic Standing 120 mmHg R BP Diastolic Standing 70 mmHg R BMI (Body Mass Index) 33.6 kg/m2 01/05/2005 Height 68 inches 5'8" Weight 250.00 lb Heart Rate 67 /min BP Systolic Sitting 138 mmHg BP Diastolic Sitting 94 mmHg BP Systolic Standing 130 mmHg BP Diastolic Standing 90 mmHg BMI (Body Mass Index) 38.0 kg/m2 07/04/2004 Height 68 inches 5'8" Weight 235.00 lb Heart Rate 69 /min BP Systolic Sitting 120 mmHg BP Diastolic Sitting 80 mmHg BP Systolic Standing 116 mmHg BP Diastolic Standing 78 mmHg BMI (Body Mass Index) 35.7 kg/m2 02/24/2004 Height 68 inches 5'8" Weight 228.00 lb Heart Rate 67 /min BP Systolic Sitting 120 mmHg L BP Diastolic Sitting 74 mmHg L BP Systolic Standing 126 mmHg L BP Diastolic Standing 70 mmHg L BMI (Body Mass Index) 34.7 kg/m2 08/19/2003 Height 68 inches Weight 242.00 lb Heart Rate 64 /min BP Systolic Sitting 118 mmHg BP Diastolic Sitting 78 mmHg BP Systolic Standing 120 mmHg BP Diastolic Standing 84 mmHg BMI (Body Mass Index) 36.8 kg/m2 04/21/2003 Height 68 inches Weight 230.00 lb Heart Rate 71 /min BP Systolic Sitting 134 mmHg BP Diastolic Sitting 84 mmHg BP Systolic Standing 124 mmHg BP Diastolic Standing 80 mmHg BMI (Body Mass Index) 35.0 kg/m2 Results Test Date Test Result H/L Range Note Laboratory test finding 09/26/2015 TSH (Thyroid Stim 0.23 ?IU/mL Low 0.34- 5.60 1, 2 Horm) Free T4 (Free Thyroxine) 0.95 ng/dL 0.61-1.12 1, 3 Vitamin B12 340 pg/mL 180-914 1, 4 Folic Acid (Folate) > 20.00 ng/mL >3.99 1, 5 Methylmalonic Acid Mma 0.21 nmol/mL <=0.40 1, 6 Dulce (Antinuclear Antibodies) Negative Negative 1, 7 Erythrocyte Sed Rate 3 mm/Hr 0-40 1, 8 C Reactive Protein < 1.00 mg/L < 5.00 1, 9 Protein Electrophoresis 09/26/2015 Total Protein(Pep) 7.1 g/dL 6.3 - 7.9 1 Albumin 3.7 g/dL 3.4-4.7 1 Alpha-1 Globulin 0.3 g/dL 0.1-0.3 1 Alpha-2 Globulin 0.9 g/dL 0.6-1.0 1 Beta Globulin 0.9 g/dL 0.7-1.2 1 Gamma Globulin 1.3 g/dL 0.6-1.6 1 Albumin/Globulin Ratio 1.06 1 Impression See Comment 1, 10 Laboratory test 09/26/2015 Hemoglobin A1c (Glyco 5.8 % Less than 6.0 1, 11 finding HGB) Laboratory test 10/15/2007 Erythrocyte Sed Rate 1 MM/HR 0-20 finding CBC With Manual Diff 10/15/2007 White Blood Count 5.2 CUMM 4.8-10.8 Absolute Neutrophil Count 2.9 Atypical Lymph 4 % 0-6 Anisocytosis SLIGHT Band Neutrophil 2 % 0-8 Basophil 1 % 0-2 Hematocrit 42 % 42-52 Hemoglobin 14.9 g/dL 14.0-18.0 Eosenophil 3 % 0-6 Lymphocyte 26 % 5-47 Mean Corpuscular HGB Cone 35 g/dL 32-36 Mean Corpuscular Hemoglob 32 pg High 27-31 Mean Corpuscular Volume 91 um3 80-94 Monocyte 9 % 0-13 Mean Platelet Volume 7.1 um3 Low 7.4-10.4 Platelet Count 221 CUMM 150-450 Polysegmented Neutrophil 55 % 38-83 Red Cell Count 4.64 CUMM 4.6-6.2 Redcell Distribution WDTH 13 % 10.5-15 Lipid Profile 10/15/2007 Cholesterol/HDL Ratio 4.40 AVERAGE 1-4.97 (Trig/Chol/HDL) Cholesterol 207 mg/dL High Less Than 200 12 Triglyceride 103 mg/dL 40-200 High Density Lipoprotein 47 mg/dL 40-60 Low Density Lipoprotein 139 mg/dL High Less Than 100 13 Comp Metabolic Panel 10/15/2007 One Over Creatinine 0.90 Anion Gap 6.0 mmol/L 2-11 14 Albumin/Globulin Ratio 1.6 1-3 Albumin 4.2 GM/DL 3.6-5.4 Alkaline Phosphatase 67 U/L 39-117 Alt (SGPT) 25 U/L 17-63 Ast (Sgot) 24 U/L 12-42 BUN 13 mg/dL 6-24 Calcium 8.9 mg/dL 8.7-10.2 Chloride 106 mmol/L 101-111 Co2 (Carbon Dioxide) 27.0 mmol/L 22-32 Globulin 2.6 GM/DL 2-4 Glucose 100 mg/dL 70-105 Potassium 4.1 mmol/L 3.5-5.0 Sodium 139 mmol/L 135-145 Bilirubin Total 0.7 mg/dL 0.4-1.5 Total Protein 6.8 GM/DL 6.2-8.1 BUN/Creatinine Ratio 11.8 8-20 Creatinine 1.1 mg/dL 0.5-1.4 Laboratory test finding 10/15/2007 D Dimer Quantitative < 200 NG/ML < 230 15 BNP Evaluatr < 7.5 pg/mL Low 7.5-100 CPK (Creatine Kinase) 211 U/L High 0-200 C Reactive Protein < 0.5 mg/dL Less Than 0.5 1 similar to TSH in 2006, free T4 normal 2 with immunofixation Copy Result to: GUILLE ASTUDILLO ([id number]) 3 with immunofixation Copy Result to: MARAL GUILLE ([id number]) 4 Normal Range 180 to 914 Indeterminate Range 145 to 180 Deficient Range <145 5 with immunofixation Copy Result to: MARAL GUILLE ([id number]) 6 Test Performed by: [place] [address] Plant Operations Worker: Nathan Ruffin II, M.D., Ph.D. 7 with immunofixation Copy Result to: GUILLE ASTUDILLO ([id number]) 8 with immunofixation Copy Result to: GUILLE ASTUDILLO ([id number]) 9 Acute inflammation: >10.00 10 RESULT: No apparent monoclonal protein on serum electrophoresis. Test Performed by: [place] [address] Plant Operations Worker: Nathan Ruffin II, M.D., Ph.D. 11 Therapeutic target for the treatment of diabetes Mellitus patients is <7% HBA1C, and in selective patients <6.0%.Please refer to [place] [employer] Diabetic care guidelines for further information. 12 Classification: Borderline High . 13 CALCULATED LDL APPROXIMATES THE VALUE OF A DIRECT LDL MEASUREMENT. Classification: Borderline High . 14 Anion gap measurement may be of limited value in the presence of any alkalosis, especially in a combined acid base disorder. . 15 Please note: The following may produce a false positive D Dimer test: - Rheumatoid factor greater than 60 IU/ml - Plasma hemoglobin greater than 0.05 gm/dl - Bilirubin greater than 50 mg/dl - Lipids greater than 1000 mg/dl - FDP greater than 20 ug/ml . Procedures Date CPT Code Description Status 03/14/2017 95032 ECHO Transthoracic, Real-Time 2D With Doppler And Color Completed Flow 02/14/2017 79601 EKG Tracing & Interpretation Completed 10/31/2016 73910 Polysomnography Sleep Staging 4+ Parameters W/Cpap Completed 03/28/2016 18981 ECHO Transthoracic, Real-Time 2D With Doppler And Color Completed Flow 03/07/2016 48497 Treadmill Interp/Report Only Completed 03/07/2016 61636 Stress Test Supervsn W/Out I/R Completed 12/30/2015 92732 Treadmill Interp/Report Only Completed 12/30/2015 48275 Stress Test Supervsn W/Out I/R Completed 12/16/2015 83483 EKG Tracing & Interpretation Completed 10/10/2015 05702 EKG, Interpretation Only Completed 10/03/2015 91088 EKG, Interpretation Only Completed 12/30/2014 21040 ECHO Transthorasic Realtime 2D W Doppler & Color Flow Completed Hosp 07/08/2012 24873 EKG, Interpretation Only Completed 07/06/2012 59221 EKG, Interpretation Only Completed 06/09/2009 98759 EKG Tracing & Interpretation Completed 10/22/2007 07649 ECHO/Stress Completed 10/22/2007 66006 ECHO/Stress Completed 10/22/2007 56396 Stress Test Completed 10/09/2007 54321 EKG Tracing & Interpretation Completed 01/16/2007 92261 EKG Tracing & Interpretation Completed 01/16/2007 65125 EKG Tracing & Interpretation Completed 03/12/2006 41611 Color Doppler Completed 03/12/2006 82888 Pulse Doppler & Continuous Wave Completed 03/12/2006 71993 Echocardiogram Completed 03/12/2006 01393 Echocardiogram Completed 01/31/2006 02714 EKG Tracing & Interpretation Completed 01/05/2005 34233 EKG Tracing & Interpretation Completed 07/04/2004 52903 EKG Tracing & Interpretation Completed 06/14/2004 88195 EKG, Interpretation Only Completed 02/24/2004 54091 EKG Tracing & Interpretation Completed 09/08/2003 63250 Intro. Needle Or Intracath.,Vein Completed 09/08/2003 95304 IV Infusion For DX/Upt To 1 HR. Completed 09/08/2003 37413 Stress Test Completed 09/08/2003 10609 ECHO/Stress Completed 08/19/2003 67627 ECHO/Stress Completed 08/19/2003 22325 Stress Test Completed 05/09/2003 71124 EKG, Interpretation Only Completed 05/08/2003 61388 EKG, Interpretation Only Completed 05/03/2003 91640 EKG, Interpretation Only Completed 04/21/2003 06368 EKG Tracing & Interpretation Completed 04/09/2003 76829 EKG, Interpretation Only Completed Encounters Type Date Location Provider CPT E/M Dx Office Visit 05/05/2018 [facility] Dexter Clancy M.D. 08774 R25.1 9:30a [facility] F31.9 Office Visit 02/27/2018 1:00p [facility] Teddy Hendrixkler, [address] S81.801D [place] [facility] I89.0 I10 Office Visit 02/20/2018 1:00p [facility] Teddy Anne, 62468 S81.801A [facility] [place]. I89.0 I10 Office Visit 01/08/2018 2:30p [facility] [address] G20 Office Visit 06/18/2017 2:00p [facility] [address] R29.6 R25.1 Office Visit 02/14/2017 2:00p [facility] [address] G47.33 Kristie Mcmillan M.D. E66.01 E78.5 I71.9 I10 Z68.41 Office Visit 10/02/2016 1:00p [facility]ology [facility] Sleep Salma Guthrie MD 850[address] G47.9 Services Of [facility] G47.33 E66.01 Office Visit 06/06/2016 12:27p [facility] Farzana Cerrato, ROSALIA 72672 R07.9 Hospitalists G47.33 E78.5 I10 Office Visit 05/09/2016 1:40p [facility] Art Mcmillan, 77454 E66.9 M.D. I71.9 I10 E78.5 Office Visit 12/16/2015 2:40p [facility] Art Mcmillan, 52724 I10 M.D. F31.9 G20 R60.9 R06.02 E66.9 I71.9 Office Visit 11/07/2015 10:30a Neurosurgery Services Teddy Diaz, 08934 M48.07 Of [facility] M.D. Office Visit 10/10/2015 2:57p [facility] Shadi Pizarro, 15290 R29.6 Hospitalists M.D. G21.19 I10 F31.9 Office Visit 10/08/2015 2:56p [facility] Mackenzie Simmons, 09328 R29.6 Hospitalists D.O. G21.19 I10 F31.9 Office Visit 09/27/2015 2:00p [facility] [place] [address] R32 Of [facility] G21.19 Office Visit 09/13/2015 3:00p [facility] [place] [address] G21.19 Services Of [facility] R20.2 R26.89 Office Visit 06/15/2015 8:34a [facility], Jaime Galan, 44837 G20 Hospitalists MAllyn R26.9 Office Visit 06/11/2015 8:33a [facility], [place], [address] G20 Hospitalists MAllyn R26.9 Office Visit 05/13/2015 11:00a Orthopedic Services Cayetano Nicole, 76375 S33.6xxA Of Yasmany Duran M54.32 Office Visit 01/27/2015 11:12a [facility], Damaris Rodriguez N.P. 04656 333.90 Hospitalists 780.79 724.2 296.80 Office Visit 01/26/2015 11:12a [facility], Damaris Rodriguez N.P. 17672 333.90 Hospitalists 724.2 780.79 296.80 Office Visit 01/25/2015 11:12a [facility], Damaris Rodriguez N.P. 90540 333.90 Hospitalists 780.79 724.2 296.80 Office Visit 01/24/2015 11:11a [facility], Brandy Dubois, 60106 333.90 Hospitalists N.P. 724.2 780.79 296.80 Office Visit 01/23/2015 11:10a [facility], Brandy Dubois, 10253 724.2 Hospitalists N.P. 780.79 333.90 296.80 Office Visit 01/22/2015 11:09a [facility], Brandy Dubois, 73670 780.79 Hospitalists N.P. 333.90 724.2 296.80 Office Visit 01/21/2015 11:09a [facility], Damaris Rodriguez N.P. 71763 780.79 Hospitalists 724.2 333.90 296.80 Office Visit 01/01/2015 10:21a [facility], Brandy Dubois, 60852 584.9 Hospitalists N.P. 332.0 401.9 296.80 Office Visit 12/31/2014 10:20a [facility], Brandy Dubois, 30089 584.9 Hospitalists N.P. 332.0 401.9 296.80 Office Visit 12/30/2014 10:19a [facility], [place] [address] 584.9 Hospitalists 332.0 401.9 296.80 Office Visit 12/29/2014 10:18a [facility], Damaris Rodriguez, N.P. 00747 584.9 Hospitalists 332.0 401.9 296.80 Office Visit 09/23/2014 1:00p [facility] Moe Nelson, 73007 780.53 Services Of Kristie Duran Office Visit 03/30/2014 11:00a Neurosurgery Services Of Dylan Liriano, 36569 756.11 Kristie Duran 756.12 Office Visit 01/16/2013 9:06a [facility] Moe Nelson, 29421 327.23 M.D. Office Visit 07/09/2012 8:42a [facility], Brandy Dubois, 12728 790.5 Hospitalists N.P. 790.5 786.51 786.51 824.8 296.50 296.50 Office Visit 06/09/2009 10:00a [facility] Juan Carlos Lambert, 70964 278.01 M.D. 780.79 Office Visit 10/09/2007 2:20p [facility] Juan Carlos Lambert, 60496 278.01 M.D. 786.50 302.72 401.1 Office Visit 01/16/2007 2:40p [facility] Juan Carlos Lambert, 44930 420.91 M.D. 401.1 302.72 278.01 Office Visit 01/31/2006 2:20p [facility] Juan Carlos Lambert, 17914 786.50 M.D. 401.1 272.0 Office Visit 01/05/2005 3:40p [facility] Juan Carlos GarcíaDelonte Deepikaraeann, 94360 786.50 M.D. Office Visit 07/04/2004 3:00p [facility] Juan Carlos GarcíaDelonte Deepikaraeann, 72405 786.50 M.D. 401.1 272.0 278.01 Office Visit 02/24/2004 2:20p [facility] Juan Carlos Barnes Maraeann, 13861 786.59 M.D. 272.0 278.01 Office Visit 09/08/2003 11:30a [facility] Juan Carlos GarcíaDelonte Deepikaraeann, 57028 786.59 M.D. Office Visit 08/19/2003 3:40p [facility] Juan Carlos Barnes Maraeann, 60620 786.59 M.D. 414.01 401.1 278.00 Office Visit 04/21/2003 3:20p [facility] Juan Carlos GarcíaDelonte Deepikaraeann, 43249 786.59 M.D. 401.1 Plan of Care Future Appointment(s):08/21/2018 1:30 pm - Dexter Clancy M.D. at [facility]05/05/2018 - Dexter Clancy M.D.R25.1 Tremor, unspecifiedNew Therapy:Physical TherapyFollow up:Follow up in 3 monthsRecommendations:Change Carbidopa/Levodopa 25/100 to 1 pill 30 min prior to meals Enroll in PT for gait and balanceConsider brace for right foot.F31.9 Bipolar disorder, unspecified
[2018-05-06] MEDS ORDERED: NS 0.9% 1000 ML* 1,000 ML IV ONE (19:55)
--- NOTE | 2018-05-06 20:12 | ED ---
Dizziness - HPI Summary HPI Summary: A 67 y/o male BIBA from [facility] presents to [facility] c/o dizziness since 16:30 today. He also c/o light-headedness and feeling wobbly. He denies any syncope. The patient usually walks with a walker. - History Of Current Complaint Chief Complaint: EDWeakness Stated Complaint: GENERAL WEAKNESS Time Seen by Provider: 05/06/18 19:37 Hx Obtained From: Patient Timing: Hours Severity Initially: Moderate Severity Currently: Moderate Character: Weak, Dizzy Associated Signs And Symptoms: Positive: Other: - light headed - Allergies/Home Medications Allergies/Adverse Reactions: Allergies Allergy/AdvReac Type Severity Reaction Status Date / Time haloperidol [From Haldol] Allergy Leg Cramps Verified 05/06/18 19:12 zolpidem [From Ambien] Allergy Unknown Verified 05/06/18 19:12 Reaction Details Home Medications: Home Medications Acetaminophen [Tylenol Extra Strength] 500 mg PO Q6HR PRN 05/06/18 [History Confirmed 05/06/18] Carbidopa/Levodopa [Carbidopa-Levodopa 25-100 Tab] 1 tab PO TID 05/06/18 [ History Confirmed 05/06/18] Gabapentin [Neurontin] 300 mg PO TID 05/06/18 [History Confirmed 05/06/18] HYDROcodone/ACETAMIN 5-325 MG* [Harts 5-325 TAB*] 1 tab PO Q8H PRN 05/06/18 [ History Confirmed 05/06/18] LORazepam [Ativan 0.5 MG TAB] 0.5 mg PO DAILY 05/06/18 [History Confirmed ] LORazepam [Ativan 0.5 MG TAB] 0.5 mg PO Q12HR PRN 05/06/18 [History Confirmed ] Naproxen Sodium [Naproxen 220 mg] 220 mg PO BID 05/06/18 [History Confirmed 04/15] Phenazopyridine HCl [Phenazopyridine Hydrochlo] 100 mg PO Q8HR PRN 05/06/18 [ History Confirmed 05/06/18] Sennosides [Senokot Xtra] 17.2 mg PO DAILY 05/06/18 [History Confirmed 05/06/18] PMH/Surg Hx/FS Hx/Imm Hx Endocrine/Hematology History: Denies: Hx Anticoagulant Therapy, Hx Blood Disorders, Hx Blood Transfusions, Hx Bone Marrow Disease, Hx Diabetes, Hx Systemic Lupus Erythematosus, Hx Sickle Cell Disease, Hx Thyroid Disease, Hx Anemia, Hx Unexplained Bleeding, Other Endocrine/Hematological Disorders Cardiovascular History: Reports: Hx Coronary Artery Disease, Hx Hypercholesterolemia, Hx Hypertension, Other Cardiovascular Problems/Disorders - apparent venous insufficiency Denies: Hx Aneurysm, Hx Angina, Hx Angioplasty, Hx Auto Implanted Cardiovert Defib, Hx Cardiac Arrest, Hx Cardiomegaly, Hx Congenital Heart Disease, Hx Congestive Heart Failure, Hx Deep Vein Thrombosis, Hx Hypotension, Hx Myocardial Infarction, Hx Pacemaker/ICD, Hx Peripheral Vascular Disease, Hx Rheumatic Fever, Hx Syncope, Hx Valvular Heart Disease Respiratory History: Reports: Hx Asthma, Hx Seasonal Allergies, Hx Sleep Apnea Denies: Hx Chronic Bronchitis, Hx Chronic Obstructive Pulmonary Disease (COPD ), Hx Cystic Fibrosis, Hx Lung Cancer, Hx Pleural Effusion, Hx Pneumonia, Hx Pulmonary Edema, Hx Pulmonary Embolism, Other Respiratory Problems/Disorders GI History: Reports: Hx Gastroesophageal Reflux Disease, Hx Irritable Bowel, Other GI Disorders - Chronic constipation Denies: Hx Cirrhosis, Hx Crohn's Disease, Hx Diverticulosis, Hx Gall Bladder Disease, Hx Gastrointestinal Bleed, Hx Hiatal Hernia, Hx Jaundice, Hx Obstructive Bowel, Hx Ileostomy, Hx Pyloric Stenosis, Hx Ulcer History: Reports: Hx Acute Renal Failure - partial nephrectomy, Hx Benign Prostatic Hyperplasia, Hx Kidney Stones, Other Problems/Disorders - has only one functioning kidney Denies: Hx Chronic Renal Failure, Hx Dialysis, Hx Kidney Infection, Hx Renal Disease Musculoskeletal History: Reports: Hx Arthritis, Hx Back Problems - DJD, L-spine stenosis, Hx Tendonitis Denies: Hx Bursitis, Hx Congenital Bone Abnormalities, Hx Fibromyalgia, Hx Gout, Hx Orthopedic Injury, Hx Osteoporosis, Hx Scoliosis, Other Musculoskeletal History Sensory History: Reports: Hx Contacts or Glasses - Glasses left at home, Hx Vision Problem Denies: Hx Cataracts, Hx Eye Injury, Hx Eye Prosthesis, Hx Glaucoma, Hx Macular Degeneration, Hx Deafness, Hx Hearing Aid, Hx Hearing Problem, Other Sensory Impairments Opthamlomology History: Reports: Hx Contacts or Glasses - Glasses left at home, Hx Vision Problem Denies: Hx Cataracts, Hx Eye Injury, Hx Eye Prosthesis, Hx Glaucoma, Hx Macular Degeneration, Other Sensory Impairments Neurological History: Reports: Hx Dementia, Other Neuro Impairments/Disorders - 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 Bipolar, Parkinsons Denies: Hx Developmental Delay, Hx Headaches, Hx Migraine, Hx Seizures, Hx Spinal Cord Injury, Hx Transient Ischemic Attacks (TIA) Psychiatric History: Reports: Hx Anxiety, Hx Depression, Hx Inpatient Treatment , Hx Community Mental Health Tx, Hx Bipolar Disorder Denies: Hx Attention Deficit Hyperactivity Disorder, Hx Eating Disorder, Hx Panic Disorder, Hx Post Traumatic Stress Disorder, Hx Schizophrenia, Hx Suicide Attempt, Hx of Violent Episodes Against Others, Hx Substance Abuse, Other Psychiatric Issues/Disorders - Cancer History Hx Chemotherapy: No Hx Radiation Therapy: No - Surgical History Surgery Procedure, Year, and Place: lt PARTIAL nephrectomy age 10 ruptured kidney sports related,. Nose surgery from being broken. heart cath at [facility] [place] 2003 Hx Anesthesia Reactions: No - Immunization History Date of Tetanus Vaccine: unknown Date of Influenza Vaccine: 2011 Infectious Disease History: No Infectious Disease History: Denies: Hx Clostridium Difficile, Hx Hepatitis, Hx Human Immunodeficiency Virus (HIV), Hx of Known/Suspected MRSA, Hx Shingles, Hx Tuberculosis, Hx Known/ Suspected VRE, Traveled Outside the [place] in Last 30 Days - Family History Known Family History: Positive: Cardiac Disease, Hypertension, Diabetes - Social History Alcohol Use: None Hx Substance Use: No Substance Use Type: Reports: None Hx Tobacco Use: No Smoking Status (MU): Never Smoked Tobacco Have You Smoked in the Last Year: No Review of Systems Negative: Fever Neurological: Other - Positive: light headed, dizziness, off-balance Negative: Syncope All Other Systems Reviewed And Are Negative: Yes Physical Exam - Summary Physical Exam Summary: VITAL SIGNS: Reviewed. GENERAL: Patient is a well-developed and nourished MALE who is lying comfortable in the stretcher. Patient is not in any acute respiratory distress. HEAD AND FACE: No signs of trauma. No ecchymosis, hematomas or skull depressions. No sinus tenderness. EYES: PERRLA, EOMI x 2, No injected conjunctiva, no nystagmus. EARS: Hearing grossly intact. Ear canals and tympanic membranes are within normal limits. MOUTH: Oropharynx within normal limits. NECK: Supple, trachea is midline, no adenopathy, no JVD, no carotid bruit, no c- spine tenderness, neck with full ROM. CHEST: Symmetric, no tenderness at palpation LUNGS: Clear to auscultation bilaterally. No wheezing or crackles. CVS: Regular rate and rhythm, S1 and S2 present, no murmurs or gallops appreciated. ABDOMEN: Soft, abdominal distention. No rebound no guarding, and no masses palpated. Bowel sounds are normal. EXTREMITIES: FROM in all major joints, Bilateral pitting edema 2-3+, no cyanosis or clubbing. NEURO: Alert and oriented x 3. Speech is normal and follows commands. Mild dysmetria left side. SKIN: Dry and warm GCS: 15 Triage Information Reviewed: Yes Vital Signs On Initial Exam: Initial Vitals Resp 14 05/06/18 18:54 Vital Signs Reviewed: Yes Diagnostics - Vital Signs Vital Signs Temp Pulse Resp BP Pulse Ox 05/06/18 19:25 79 16 119/73 94 05/06/18 19:00 97.6 F 84 12 109/83 98 05/06/18 18:57 80 18 109/83 97 05/06/18 18:54 14 - Laboratory Result Diagrams: 05/06/18 20:11 05/06/18 20:11 Lab Statement: Any lab studies that have been ordered have been reviewed, and results considered in the medical decision making process. - Radiology Neck MRA Xray Interpretation: No Acute Changes Radiology Interpretation Completed By: Radiologist - no acute findings. This report has been reviewed by the ED physician. Head MRA Xray Interpretation: No Acute Changes Radiology Interpretation Completed By: Radiologist - No acute findings. Occluded versus aplastic right A1 segment. The right A2 segment is patent. No aneurysm. Mild narrowing of bilateral middle cerebral arteries and left posterior cerebral artery This report has been reviewed by the ED physician Brain MRI Xray Interpretation: No Acute Changes Radiology Interpretation Completed By: Radiologist - No evidence of restricted diffusion to suggest an acute infarct. Small low attenuation area seen in the left amrik on the CT scan was volume averaging rather than true infarct. Moderate volume loss and mild small vessel ischemic changes. This report has been reviewed by the ED physician CXR Xray Interpretation: No Acute Changes Radiology Interpretation Completed By: ED Physician - No acute findings. Pending official report. - CT Brain CT Interpretation: Positive (See Comments) CT Interpretation Completed By: Radiologist - Subtle small low attenuation area in the left amrik may represent tiny acute. This report has been reviewed by the ED physician. - Ultrasound No standard instances Ultrasound Interpretation: No Acute Changes - bilateral lower extremity duplex venous ultrasound Ultrasound Interpretation Completed By: Radiologist - Normal bilateral lower extremity duplex venous ultrasound. This report has been reviewed by the ED physician. - EKG 20:06 Cardiac Rate: NL - 78bpm EKG Rhythm: Sinus Rhythm ST Segment: Normal EKG Interpretation: non specific T wave changes Re-Evaluation - Re-Evaluation First Eval Re-Evaluation Time: 20:00 Change: Improved Comment: Able to walk with walker, not wobbly, narrow gait. Dizzy Course/Dx - Course Course Of Treatment: A 67 y/o male BIBA from [facility] presents to [facility] c/o dizziness since 16:30 today. He also c/o light-headedness and feeling wobbly. He denies any syncope. The patient usually walks with a walker. The imaging results are as follows: Neck MRA. Xray Interpretation: No Acute Changes. Radiology Interpretation Completed By: Radiologist - no acute findings. This report has been reviewed by the ED physician. Head MRA. Xray Interpretation: No Acute Changes. Radiology Interpretation Completed By: Radiologist - No acute findings. Occluded versus aplastic right A1 segment. The right A2 segment is patent. No aneurysm. Mild narrowing of bilateral middle cerebral arteries and left posterior cerebral artery This report has been reviewed by the ED physician. Brain MRI. Xray Interpretation: No Acute Changes. Radiology Interpretation Completed By: Radiologist - No evidence of restricted diffusion to suggest an acute infarct. Small low attenuation area seen in the left amrik on the CT scan was volume averaging rather than true infarct. Moderate volume loss and mild small vessel ischemic changes. This report has been reviewed by the ED physician. CXR. Xray Interpretation: No Acute Changes. Radiology Interpretation Completed By: ED Physician - No acute findings. Pending official report. - CT. Brain. CT Interpretation: Positive (See Comments). CT Interpretation Completed By: Radiologist - Subtle small low attenuation area in the left amrik may represent tiny acute. This report has been reviewed by the ED physician. - Ultrasound. * * No standard instances. Ultrasound Interpretation: No Acute Changes - bilateral lower extremity duplex venous ultrasound. Ultrasound Interpretation Completed By: Radiologist - Normal bilateral lower extremity duplex venous ultrasound. This report has been reviewed by the ED physician. - EKG. 20: 06. Cardiac Rate: NL - 78bpm. EKG Rhythm: Sinus Rhythm. ST Segment: Normal. EKG Interpretation: non specific T wave changes. The patient was diagnosed with Generalized weakness and chronic bilateral extremity lower edema. The patient will be discharged and is agreeable with this plan. - Diagnoses Provider Diagnoses: Generalized weakness, Bilateral lower extremity edema - Provider Notifications Discussed Care Of Patient With: Dr. Kam Time Discussed With Above Provider: 21:10 Instructed by Provider To: Other - Dr. Kam from stroke center at [place] reviewed the CT and sees no infarction and will do an MRI and MRA to rule out CVA. Discharge - Sign-Out/Discharge Documenting (check all that apply): Patient Departure - DC - Discharge Plan Condition: Stable Disposition: HOME Patient Education Materials: Leg Edema (ED), Weakness (ED) Referrals: Guille Astudillo MD [Primary Care Provider] - (2-3 days) Additional Instructions: RETURN TO THE EMERGENCY DEPARTMENT FOR CHANGING OR WORSENING SYMPTOMS. FOLLOW UP WITH PCP IN 1-2 DAYS. - Attestation Statements Document Initiated by Scribe: Yes Documenting Scribe: Sidney Hobson Provider For Whom Scribe is Documenting (Include Credential): Ericka Valentino MD Scribe Attestation: Sidney Smith, scribed for Ericka Valentino MD on 05/07/18 at 0310.
[2018-05-06 20:21] LABS: ABS Basophils 0 10^3/ul (0-0.2); ABS Eosinophils 0.2 10^3/ul (0-0.6); ABS Lymphocytes 2.6 10^3/ul (1.0-4.8); ABS Monocytes 0.7 10^3/ul (0-0.8); ABS Neutrophils 2.6 10^3/ul (1.5-7.7); ABS Nucleated RBC 0 10^3/ul; Hematocrit 43 % (42-52); Hemoglobin 14.7 g/dl (14.0-18.0); Lymphocyte % 42.6 % (25-47); Mean Corpuscular HGB Conc 35 g/dl (31-36); Mean Corpuscular Hemoglobin 32 pg (27-31); Mean Corpuscular Volume 93 fL (80-94); Mean Platelet Volume 7.4 um3 (7.4-10.4); Nucleated Red Blood Cells % 0.2; Platelet Count 172 10^3/ul (150-450); Red Blood Count 4.58 10^6/ul (4.00-5.40); Red Cell Distribution Width 13 % (10.5-15); White Blood Count 6.2 10^3/ul (3.5-10.8)
[2018-05-06 20:29] LABS: INR 0.93 (0.77-1.02)
[2018-05-06 20:37] LABS: EGFR Non-African American 79.6 (>60)
--- NOTE | 2018-05-06 20:44 | RAD ---
EXAM: CT Head Without Intravenous Contrast CLINICAL HISTORY: 67 years old, male; Signs and symptoms; Other: Weakness TECHNIQUE: Axial computed tomography images of the head/brain without intravenous contrast. All CT scans at this facility use at least one of these dose optimization techniques: automated exposure control; mA and/or kV adjustment per patient size (includes targeted exams where dose is matched to clinical indication); or iterative reconstruction. COMPARISON: BRAIN WO CT BRAIN WO 04/15/2017 1:46 PM FINDINGS: Brain: Subtle small low attenuation area in the left amrik may represent tiny acute infarct in proper clinical setting, further evaluation with MR is recommended. Moderate prominence of ventricles and sulci representing volume loss. Moderate small vessel ischemic changes are seen. There is no mass, midline shift, or mass effect. Carranza-white matter differentiation is preserved. There is no evidence of hemorrhage. There is no extra-axial fluid collection. Basal cisterns are patent. Bones/joints: Unremarkable. No acute fracture. Soft tissues: Unremarkable. Sinuses: Mucosal thickening of the ethmoidal air cells. Mastoid air cells: Unremarkable as visualized. No mastoid effusion. IMPRESSION: Subtle small low attenuation area in the left amrik may represent tiny acute infarct in proper clinical setting, further evaluation with MR is recommended. Moderate volume loss and small vessel ischemic changes. To contact [employer] with a general question: [facility] - [phone] For direct physician to physician contact: Physician Hotline - [phone] [facility] (ad Facility ID #[id number])
[2018-05-06 20:53] LABS: Lithium < 0.10 mmol/L (0.6-1.2)
[2018-05-06 21:01] LABS: Urine Appearance Clear; Urine Blood Negative (Negative); Urine Color Straw; Urine Ketones Negative (Negative); Urine Protein Negative (Negative); Urine Specific Gravity 1.008 (1.010-1.030); Urine Urobilinogen Negative (Negative)
[2018-05-06] MEDS ORDERED: Gadobenate* (CONTRAST) 529 MG/ML 10 ML SDV IV ONE (21:35)
--- NOTE | 2018-05-06 21:37 | RAD ---
EXAM: US Duplex Bilateral Lower Extremity Veins CLINICAL HISTORY: 67 years old, male; Signs and symptoms; Edema, localized; Lower extremity, bilateral; Additional info: Dvt TECHNIQUE: Real-time duplex ultrasound scan of the bilateral lower extremity veins integrating B-mode two-dimensional vascular structure, Doppler spectral analysis, color flow Doppler imaging and compression. COMPARISON: No relevant prior studies available. FINDINGS: Right deep veins: Unremarkable. No DVT in the right common femoral, femoral, proximal deep femoral or popliteal veins. The veins demonstrate normal color flow, are normally compressible, with normal phasic flow and/or augmentation response. Right superficial veins: Unremarkable. No thrombus in the visualized right great saphenous vein. Left deep veins: Unremarkable. No DVT in the left common femoral, femoral, proximal deep femoral or popliteal veins. The veins demonstrate normal color flow, are normally compressible, with normal phasic flow and/or augmentation response. Left superficial veins: Unremarkable. No thrombus in the visualized left great saphenous vein. Soft tissues: No acute findings. No popliteal cyst. IMPRESSION: Normal bilateral lower extremity duplex venous ultrasound. To contact [facility] with a general question: [facility] - [phone] For direct physician to physician contact: Physician Hotline - [phone] [facility] ([facility] Facility ID #[id number])
--- NOTE | 2018-05-06 22:13 | RAD ---
EXAM: MR Head Without Intravenous Contrast CLINICAL HISTORY: 67 years old, male; Signs and symptoms; Dizziness and weakness, extremity; Right; Patient HX: ? CVA after increased weakness and dizziness; Additional info: CVA. A lot of pt motion due to severer pain in groin, trouble getting through 45 minutes of scanning; Best possible images TECHNIQUE: Magnetic resonance images of the head/brain without intravenous contrast in multiple planes. COMPARISON: MRAHEAD WO MRA HEAD W/O 05/06/2018 9:28 PM FINDINGS: Brain: No evidence of restricted diffusion to suggest an acute infarct. Small low attenuation area seen in the left amrik on the CT scan was volume averaging rather than true infarct. No evidence of mass, midline shift, or mass effect. No evidence of hemorrhage. Ventricles and sulci are enlarged representing moderate volume loss. Mild periventricular, subcortical, and deep white matter small vessel ischemic changes. Bones/joints: Unremarkable. Sinuses: Mucosal thickening of ethmoidal air cells. No acute sinusitis. Mastoid air cells: Unremarkable as visualized. No mastoid effusion. Orbits: Unremarkable as visualized. IMPRESSION: No evidence of restricted diffusion to suggest an acute infarct. Small low attenuation area seen in the left amrik on the CT scan was volume averaging rather than true infarct. Moderate volume loss and mild small vessel ischemic changes. To contact [employer] with a general question: [facility] - [phone] For direct physician to physician contact: Physician Hotline - [phone] [facility] ([facility] Facility ID #[id number])
--- NOTE | 2018-05-06 22:18 | RAD ---
EXAM: MR Angiography Head Without Intravenous Contrast CLINICAL HISTORY: 67 years old, male; Signs and symptoms; Dizziness and giddiness and weakness; Patient HX: ? CVA after increased weakness and dizziness. ; Additional info: CVA. A lot of pt motion due to severe pain in his groin- trouble getting throught 45 minutes of scanning; Best images possible TECHNIQUE: Magnetic resonance angiography images of the head without intravenous contrast. COMPARISON: BRAIN WO MRI BRAIN W/O 09/23/2015 2:10 PM FINDINGS: Right internal carotid artery: No acute findings. Intracranial segment is patent with no significant stenosis. No aneurysm. Right anterior cerebral artery: Occluded versus aplastic right A1 segment. The right A2 segment is patent. No aneurysm. Right middle cerebral artery: Mild narrowing of the right middle cerebral artery. No aneurysm. Right posterior cerebral artery: Unremarkable. No occlusion or significant stenosis. No aneurysm. Right vertebral artery: Unremarkable as visualized. Left internal carotid artery: No acute findings. Intracranial segment is patent with no significant stenosis. No aneurysm. Left anterior cerebral artery: Unremarkable. No occlusion or significant stenosis. No aneurysm. Left middle cerebral artery: Mild narrowing of the left middle cerebral artery. No aneurysm. Left posterior cerebral artery: Mild narrowing of left posterior cerebral artery. No aneurysm. Left vertebral artery: Unremarkable as visualized. Basilar artery: Unremarkable. No occlusion or significant stenosis. No aneurysm. IMPRESSION: No acute findings. Occluded versus aplastic right A1 segment. The right A2 segment is patent. No aneurysm. Mild narrowing of bilateral middle cerebral arteries and left posterior cerebral artery. To contact [facility] with a general question: [facility] - [phone] For direct physician to physician contact: Physician Hotline - [phone] [facility] ([facility] Facility ID #[id number])
--- NOTE | 2018-05-06 22:42 | RAD ---
EXAM: MR Angiography Neck Without And With Intravenous Contrast CLINICAL HISTORY: 67 years old, male; Signs and symptoms; Dizziness and giddiness and weakness; Patient HX: Increased weakness and dizziness; Additional info: CVA. *pt motion d/t severe pain in groin, made pt as comfortable as possible, unable to tolerate repeats, best possible images TECHNIQUE: Magnetic resonance angiography images of the neck without and with intravenous contrast. CONTRAST: 20 mL of MULTIHANCE administered intravenously. COMPARISON: [facility] MRI CERVICAL SPINE W/WO 09/23/2015 2:26 PM FINDINGS: Right common carotid artery: Unremarkable. No significant stenosis. No dissection or occlusion. Right internal carotid artery: Unremarkable. Extracranial segment is patent with no significant stenosis. No dissection or occlusion. Right external carotid artery: Unremarkable. No occlusion. Right vertebral artery: Unremarkable. No significant stenosis. No dissection or occlusion. Left common carotid artery: Unremarkable. No significant stenosis. No dissection or occlusion. Left internal carotid artery: Unremarkable. Extracranial segment is patent with no significant stenosis. No dissection or occlusion. Left external carotid artery: Unremarkable. No occlusion. Left vertebral artery: Unremarkable. No significant stenosis. No dissection or occlusion. Soft tissues: Unremarkable as visualized. Other findings: Incidental note of bovine arch is made CAROTID STENOSIS REFERENCE USING NASCET CRITERIA: % ICA stenosis = (1 - narrowest ICA diameter/diameter of distal cervical ICA) x 100. Mild - <50% stenosis. Moderate - 50-69% stenosis. Severe - 70-94% stenosis. Near occlusion - 95-99% stenosis. Occluded - 100% stenosis. IMPRESSION: No acute findings. To contact [facility] with a general question: [facility] - [phone] For direct physician to physician contact: Physician Hotline - [phone] [facility] ([facility] Facility ID #[id number])
[2018-05-07 00:16] VITALS: BP 130/79
--- NOTE | 2018-05-07 08:19 | RAD ---
Indication: Weakness. Hypertension. Asthma. Comparison: November 06, 2017 CT abdomen and July 21, 2016 chest radiograph. Technique: Sitting AP chest 2034 hours Report: No focal pulmonary lesion, compelling alveolar consolidation, pleural effusion, pneumothorax. The heart, pulmonary vasculature, and mediastinal contours are unremarkable. IMPRESSION: #. No evidence for acute intrathoracic disease. R1
== END 2018-05-07 00:14 | disposition home or self-care (01) ==
LOC: ED 18:46
DX: R53.1 Weakness (principal); R60.0 Localized edema; Z88.8 Allergy status to other drugs, medicaments and biological substances
CPT/HCPCS: 36415; 70450; 70544; 70549; 70551; 71045; 80053; 80164; 80178; 81003; 83605; 83735; 83880; 84443; 85025; 85610; 85730; 93005; 93970; 99284; A9577

== ENCOUNTER 2018-05-10 22:56 | Emergency (ER) | payer MEDICARE, MEDICAID ==
[2018-05-10] MEDS ORDERED: Aspirin 81 mg CHEW TAB* 81 MG TAB.CHEW PO ONE (23:53)
[2018-05-11 00:15] LABS: ABS Basophils 0 10^3/ul (0-0.2); ABS Eosinophils 0.1 10^3/ul (0-0.6); ABS Lymphocytes 2.5 10^3/ul (1.0-4.8); ABS Monocytes 0.7 10^3/ul (0-0.8); ABS Neutrophils 2.4 10^3/ul (1.5-7.7); ABS Nucleated RBC 0 10^3/ul; Eosinophil % 2.1 % (0-6); Hematocrit 40 % (42-52); Lymphocyte % 43.7 % (25-47); Mean Corpuscular HGB Conc 35 g/dl (31-36); Mean Corpuscular Hemoglobin 32 pg (27-31); Mean Corpuscular Volume 93 fL (80-94); Mean Platelet Volume 7.4 um3 (7.4-10.4); Nucleated Red Blood Cells % 0.3; Platelet Count 159 10^3/ul (150-450); Red Blood Count 4.32 10^6/ul (4.00-5.40); Red Cell Distribution Width 14 % (10.5-15); White Blood Count 5.7 10^3/ul (3.5-10.8)
[2018-05-11 00:30] LABS: INR 0.9 (0.77-1.02)
[2018-05-11 00:31] LABS: EGFR Non-African American 84.8 (>60)
--- NOTE | 2018-05-11 01:27 | ED ---
HPI Chest Pain - HPI Summary HPI Summary: Pt is 67 y/o M who presents to ED c/o chest pain at 2200. He had 2 sharp pains, and then a few more a couple seconds later. The pain has now resolved and he rates his pain at triage as 0/10. Denies nausea, vomiting, dizziness, or difficulty walking. - History of Current Complaint Chief Complaint: EDChestPainROMI Time Seen by Provider: 05/10/18 23:03 Hx Obtained From: Patient Onset/Duration: Started Hours Ago, Resolved Timing: Lasting Seconds Current Severity: None Pain Intensity: 0 Pain Scale Used: 0-10 Numeric Character: Sharp/Stabbing Aggravating Factor(s): Nothing Alleviating Factor(s): Nothing Associated Signs and Symptoms: Negative: Nausea, Vomiting - Additional Pertinent History Primary Care Physician: BRIANA - Allergy/Home Medications Allergies/Adverse Reactions: Allergies Allergy/AdvReac Type Severity Reaction Status Date / Time haloperidol [From Haldol] Allergy Leg Cramps Verified 05/06/18 19:12 zolpidem [From Ambien] Allergy Unknown Verified 05/06/18 19:12 Reaction Details PMH/Surg Hx/FS Hx/Imm Hx Endocrine/Hematology History: Denies: Hx Anticoagulant Therapy, Hx Blood Disorders, Hx Blood Transfusions, Hx Bone Marrow Disease, Hx Diabetes, Hx Systemic Lupus Erythematosus, Hx Sickle Cell Disease, Hx Thyroid Disease, Hx Anemia, Hx Unexplained Bleeding, Other Endocrine/Hematological Disorders Cardiovascular History: Reports: Hx Coronary Artery Disease, Hx Hypercholesterolemia, Hx Hypertension, Other Cardiovascular Problems/Disorders - apparent venous insufficiency Denies: Hx Aneurysm, Hx Angina, Hx Angioplasty, Hx Auto Implanted Cardiovert Defib, Hx Cardiac Arrest, Hx Cardiomegaly, Hx Congenital Heart Disease, Hx Congestive Heart Failure, Hx Deep Vein Thrombosis, Hx Hypotension, Hx Myocardial Infarction, Hx Pacemaker/ICD, Hx Peripheral Vascular Disease, Hx Rheumatic Fever, Hx Syncope, Hx Valvular Heart Disease Respiratory History: Reports: Hx Asthma, Hx Seasonal Allergies, Hx Sleep Apnea Denies: Hx Chronic Bronchitis, Hx Chronic Obstructive Pulmonary Disease (COPD ), Hx Cystic Fibrosis, Hx Lung Cancer, Hx Pleural Effusion, Hx Pneumonia, Hx Pulmonary Edema, Hx Pulmonary Embolism, Other Respiratory Problems/Disorders GI History: Reports: Hx Gastroesophageal Reflux Disease, Hx Irritable Bowel, Other GI Disorders - Chronic constipation Denies: Hx Cirrhosis, Hx Crohn's Disease, Hx Diverticulosis, Hx Gall Bladder Disease, Hx Gastrointestinal Bleed, Hx Hiatal Hernia, Hx Jaundice, Hx Obstructive Bowel, Hx Ileostomy, Hx Pyloric Stenosis, Hx Ulcer History: Reports: Hx Acute Renal Failure - partial nephrectomy, Hx Benign Prostatic Hyperplasia, Hx Kidney Stones, Other Problems/Disorders - has only one functioning kidney Denies: Hx Chronic Renal Failure, Hx Dialysis, Hx Kidney Infection, Hx Renal Disease Musculoskeletal History: Reports: Hx Arthritis, Hx Back Problems - DJD, L-spine stenosis, Hx Tendonitis Denies: Hx Bursitis, Hx Congenital Bone Abnormalities, Hx Fibromyalgia, Hx Gout, Hx Orthopedic Injury, Hx Osteoporosis, Hx Scoliosis, Other Musculoskeletal History Sensory History: Reports: Hx Contacts or Glasses - Glasses left at home, Hx Vision Problem Denies: Hx Cataracts, Hx Eye Injury, Hx Eye Prosthesis, Hx Glaucoma, Hx Macular Degeneration, Hx Deafness, Hx Hearing Aid, Hx Hearing Problem, Other Sensory Impairments Opthamlomology History: Reports: Hx Contacts or Glasses - Glasses left at home, Hx Vision Problem Denies: Hx Cataracts, Hx Eye Injury, Hx Eye Prosthesis, Hx Glaucoma, Hx Macular Degeneration, Other Sensory Impairments Neurological History: Reports: Hx Dementia, Other Neuro Impairments/Disorders - hx says alzlelemers dementia, pt denies. Bipolar, Parkinsons Denies: Hx Developmental Delay, Hx Headaches, Hx Migraine, Hx Seizures, Hx Spinal Cord Injury, Hx Transient Ischemic Attacks (TIA) Psychiatric History: Reports: Hx Anxiety, Hx Depression, Hx Inpatient Treatment , Hx Community Mental Health Tx, Hx Bipolar Disorder Denies: Hx Attention Deficit Hyperactivity Disorder, Hx Eating Disorder, Hx Panic Disorder, Hx Post Traumatic Stress Disorder, Hx Schizophrenia, Hx Suicide Attempt, Hx of Violent Episodes Against Others, Hx Substance Abuse, Other Psychiatric Issues/Disorders - Cancer History Hx Chemotherapy: No Hx Radiation Therapy: No - Surgical History Surgery Procedure, Year, and Place: lt PARTIAL nephrectomy age 10 ruptured kidney sports related,. Nose surgery from being broken. heart [place] [facility] [place] Hx Anesthesia Reactions: No - Immunization History Date of Tetanus Vaccine: unknown Date of Influenza Vaccine: 2011 Infectious Disease History: No Infectious Disease History: Denies: Hx Clostridium Difficile, Hx Hepatitis, Hx Human Immunodeficiency Virus (HIV), Hx of Known/Suspected MRSA, Hx Shingles, Hx Tuberculosis, Hx Known/ Suspected VRE, Traveled Outside the [place] in Last 30 Days - Family History Known Family History: Positive: Cardiac Disease, Hypertension, Diabetes - Social History Alcohol Use: None Hx Substance Use: No Substance Use Type: Reports: None Hx Tobacco Use: No Smoking Status (MU): Never Smoked Tobacco Have You Smoked in the Last Year: No Review of Systems Positive: Chest Pain Negative: Vomiting, Nausea Neurological: Other - NEGATIVE: dizziness All Other Systems Reviewed And Are Negative: Yes Physical Exam - Summary Physical Exam Summary: VITAL SIGNS: Reviewed. GENERAL: Patient is a well-developed and nourished male who is lying comfortable in the stretcher. Patient is not in any acute respiratory distress. HEAD AND FACE: No signs of trauma. No ecchymosis, hematomas or skull depressions. No sinus tenderness. EYES: PERRLA, EOMI x 2, No injected conjunctiva, no nystagmus. EARS: Hearing grossly intact. Ear canals and tympanic membranes are within normal limits. MOUTH: Oropharynx within normal limits. NECK: Supple, trachea is midline, no adenopathy, no JVD, no carotid bruit, no c- spine tenderness, neck with full ROM. CHEST: Symmetric, no tenderness at palpation LUNGS: Clear to auscultation bilaterally. No wheezing or crackles. CVS: Regular rate and rhythm, S1 and S2 present, no murmurs or gallops appreciated ABDOMEN: Soft, non-tender. No signs of distention. No rebound no guarding, and no masses palpated. Bowel sounds are normal. EXTREMITIES: Bilateral lower extremity edemal 1 to 2+, FROM in all major joints , no cyanosis or clubbing. NEURO: Alert and oriented x 3. No acute neurological deficits. Speech is normal and follows commands. SKIN: Dry and warm Triage Information Reviewed: Yes Vital Signs On Initial Exam: Initial Vitals Temp Pulse Resp BP Pulse Ox 98.9 F 83 20 161/86 94 05/10/18 23:00 05/10/18 23:00 05/10/18 23:00 05/10/18 23:00 05/10/18 23:00 Vital Signs Reviewed: Yes Diagnostics - Vital Signs Vital Signs Temp Pulse Resp BP Pulse Ox 05/10/18 23:08 83 9 96 05/10/18 23:06 81 161/86 95 05/10/18 23:00 98.9 F 83 20 161/86 94 - Laboratory Lab Results: Lab Results 05/11/18 05/11/18 05/11/18 Range/Units 00:06 00:06 00:06 WBC 5.7 (3.5-10.8) 10^3/ul RBC 4.32 (4.00-5.40) 10^6/ul Hgb 14.0 (14.0-18.0) g/dl Hct 40 L (42-52) % MCV 93 (80-94) fL MCH 32 H (27-31) pg MCHC 35 (31-36) g/dl RDW 14 (10.5-15) % Plt Count 159 (150-450) 10^3/ul MPV 7.4 (7.4-10.4) um3 Neut % (Auto) 41.1 (38-83) % Lymph % (Auto) 43.7 (25-47) % [place] % (Auto) 12.5 H (0-7) % Eos % (Auto) 2.1 (0-6) % Baso % (Auto) 0.6 (0-2) % Absolute Neuts (auto) 2.4 (1.5-7.7) 10^3/ul Absolute Lymphs (auto) 2.5 (1.0-4.8) 10^3/ul Absolute Monos (auto) 0.7 (0-0.8) 10^3/ul Absolute Eos (auto) 0.1 (0-0.6) 10^3/ul Absolute Basos (auto) 0 (0-0.2) 10^3/ul Absolute Nucleated RBC 0 10^3/ul Nucleated RBC % 0.3 INR (Anticoag Therapy) 0.90 (0.77-1.02) APTT 33.7 (26.0-36.3) seconds Sodium 137 (135-145) mmol/L Potassium 4.1 (3.5-5.0) mmol/L Chloride 103 (101-111) mmol/L Carbon Dioxide 30 (22-32) mmol/L Anion Gap 4 (2-11) mmol/L BUN 18 (6-24) mg/dL Creatinine 0.89 (0.67-1.17) mg/dL Est GFR ( Amer) 102.6 (>60) Est GFR (Non-Af Amer) 84.8 (>60) BUN/Creatinine Ratio 20.2 H (8-20) Glucose 118 H (70-100) mg/dL Calcium 9.7 (8.6-10.3) mg/dL Magnesium 2.1 (1.9-2.7) mg/dL Total Bilirubin 0.40 (0.2-1.0) mg/dL AST 10 L (13-39) U/L ALT 9 (7-52) U/L Alkaline Phosphatase 49 (34-104) U/L Troponin I 0.00 (<0.04) ng/mL Total Protein 6.2 L (6.4-8.9) g/dL Albumin 4.0 (3.2-5.2) g/dL Globulin 2.2 (2-4) g/dL Albumin/Globulin Ratio 1.8 (1-3) Result Diagrams: 05/11/18 00:06 05/11/18 00:06 Lab Statement: Any lab studies that have been ordered have been reviewed, and results considered in the medical decision making process. - EKG 23:56 Cardiac Rate: NL - 79 bpm EKG Rhythm: Sinus Rhythm EKG Interpretation: Nonspecific T wave changes EKG Comparison: No Significant Change Chest Pain Course/Dx - Course Course Of Treatment: Pt is 67 y/o M who presents to ED c/o chest pain. He had 2 sharp pains, and then a few more a couple seconds later. Denies nausea, vomiting , dizziness, or difficulty walking. Physical exam revealed bilateral lower extremity edema 1 to 2+. EKG taken at 23:56 showed sinus at 79 bpm with nonspecific T wave changes. Both troponins were negative. Pt is discharged home with diagnosis of chest pain. He was told to follow up with [facility] fruit packer for stress test and pt is agreeable with this plan. - Diagnoses Provider Diagnoses: Chest pain Discharge - Sign-Out/Discharge Documenting (check all that apply): Patient Departure - Discharge - Discharge Plan Condition: Stable Disposition: HOME Patient Education Materials: Chest Pain (ED) Referrals: Guille Astudillo MD [Primary Care Provider] - 2 Days Mukesh Tello MD [Medical Doctor] - 3 Days Additional Instructions: Follow up with [facility] fruit packer for stress test. RETURN TO ED FOR ANY NEW OR WORSENING SYMPTOMS. - Attestation Statements Document Initiated by Scribe: Yes Documenting Scribe: Felipe Mendez Provider For Whom Scribe is Documenting (Include Credential): Dr. Ericka Valentino MD Scribe Attestation: Felipe Smith, scribed for Dr. Ericka Valentino MD on 05/11/18 at 0358.
[2018-05-11 05:15] VITALS: BP 132/71
== END 2018-05-11 05:10 | disposition home or self-care (01) ==
LOC: ED 22:56
DX: R07.9 Chest pain, unspecified (principal); I25.10 Atherosclerotic heart disease of native coronary artery without angina pectoris
CPT/HCPCS: 36415; 80053; 83735; 84484; 85025; 85610; 85730; 93005; 99283; A9270-GY

== ENCOUNTER 2018-06-06 15:04 | Emergency (ER) | payer MEDICARE, MEDICAID ==
--- NOTE | 2018-06-06 15:46 | ED ---
Abdominal Pain/Male - HPI Summary HPI Summary: A 67 y/o male brought in by ambulance presents to the ED c/o right and left flank pain. He states that he has had this pain starting weeks ago [employer] on 2017. He rates his pain as 8/10. He denies N/V, CP, SOB, fevers, chills and hematuria. He also c/o high blood pressure, swelling of his legs and dysuria. He claims to have had this flank pain before but he does not know why he has this pain. He denies having a previous CT done. - History of Current Complaint Chief Complaint: EDFlankPain Stated Complaint: HIGH BP Time Seen by Provider: 06/06/18 15:39 Hx Obtained From: Patient Onset/Duration: Gradual Onset, Lasting Weeks, Still Present Timing: Constant, Lasting Weeks Pain Intensity: 8 Pain Scale Used: 0-10 Numeric Location: Flank Associated Signs And Symptoms: Positive: Other - dysuria, bilateral edema of legs - Allergies/Home Medications Allergies/Adverse Reactions: Allergies Allergy/AdvReac Type Severity Reaction Status Date / Time haloperidol [From Haldol] Allergy Leg Cramps Verified 06/06/18 15:33 zolpidem [From Ambien] Allergy Unknown Verified 06/06/18 15:33 Reaction Details PMH/Surg Hx/FS Hx/Imm Hx Endocrine/Hematology History: Denies: Hx Anticoagulant Therapy, Hx Blood Disorders, Hx Blood Transfusions, Hx Bone Marrow Disease, Hx Diabetes, Hx Systemic Lupus Erythematosus, Hx Sickle Cell Disease, Hx Thyroid Disease, Hx Anemia, Hx Unexplained Bleeding, Other Endocrine/Hematological Disorders Cardiovascular History: Reports: Hx Coronary Artery Disease, Hx Hypercholesterolemia, Hx Hypertension, Other Cardiovascular Problems/Disorders - apparent venous insufficiency Denies: Hx Aneurysm, Hx Angina, Hx Angioplasty, Hx Auto Implanted Cardiovert Defib, Hx Cardiac Arrest, Hx Cardiomegaly, Hx Congenital Heart Disease, Hx Congestive Heart Failure, Hx Deep Vein Thrombosis, Hx Hypotension, Hx Myocardial Infarction, Hx Pacemaker/ICD, Hx Peripheral Vascular Disease, Hx Rheumatic Fever, Hx Syncope, Hx Valvular Heart Disease Respiratory History: Reports: Hx Asthma, Hx Seasonal Allergies, Hx Sleep Apnea Denies: Hx Chronic Bronchitis, Hx Chronic Obstructive Pulmonary Disease (COPD ), Hx Cystic Fibrosis, Hx Lung Cancer, Hx Pleural Effusion, Hx Pneumonia, Hx Pulmonary Edema, Hx Pulmonary Embolism, Other Respiratory Problems/Disorders GI History: Reports: Hx Gastroesophageal Reflux Disease, Hx Irritable Bowel, Other GI Disorders - Chronic constipation Denies: Hx Cirrhosis, Hx Crohn's Disease, Hx Diverticulosis, Hx Gall Bladder Disease, Hx Gastrointestinal Bleed, Hx Hiatal Hernia, Hx Jaundice, Hx Obstructive Bowel, Hx Ileostomy, Hx Pyloric Stenosis, Hx Ulcer History: Reports: Hx Acute Renal Failure - partial nephrectomy, Hx Benign Prostatic Hyperplasia, Hx Kidney Stones, Other Problems/Disorders - has only one functioning kidney Denies: Hx Chronic Renal Failure, Hx Dialysis, Hx Kidney Infection, Hx Renal Disease Musculoskeletal History: Reports: Hx Arthritis, Hx Back Problems - DJD, L-spine stenosis, Hx Tendonitis Denies: Hx Bursitis, Hx Congenital Bone Abnormalities, Hx Fibromyalgia, Hx Gout, Hx Orthopedic Injury, Hx Osteoporosis, Hx Scoliosis, Other Musculoskeletal History Sensory History: Reports: Hx Contacts or Glasses - Glasses left at home, Hx Vision Problem Denies: Hx Cataracts, Hx Eye Injury, Hx Eye Prosthesis, Hx Glaucoma, Hx Macular Degeneration, Hx Deafness, Hx Hearing Aid, Hx Hearing Problem, Other Sensory Impairments Opthamlomology History: Reports: Hx Contacts or Glasses - Glasses left at home, Hx Vision Problem Denies: Hx Cataracts, Hx Eye Injury, Hx Eye Prosthesis, Hx Glaucoma, Hx Macular Degeneration, Other Sensory Impairments Neurological History: Reports: Hx Dementia, Other Neuro Impairments/Disorders - hx says estrellita dementia, pt denies. Bipolar, Parkinsons Denies: Hx Developmental Delay, Hx Headaches, Hx Migraine, Hx Seizures, Hx Spinal Cord Injury, Hx Transient Ischemic Attacks (TIA) Psychiatric History: Reports: Hx Anxiety, Hx Depression, Hx Inpatient Treatment , Hx Community Mental Health Tx, Hx Bipolar Disorder Denies: Hx Attention Deficit Hyperactivity Disorder, Hx Eating Disorder, Hx Panic Disorder, Hx Post Traumatic Stress Disorder, Hx Schizophrenia, Hx Suicide Attempt, Hx of Violent Episodes Against Others, Hx Substance Abuse, Other Psychiatric Issues/Disorders - Cancer History Hx Chemotherapy: No Hx Radiation Therapy: No - Surgical History Surgery Procedure, Year, and Place: lt PARTIAL nephrectomy age 10 ruptured kidney sports related,. Nose surgery from being broken. heart cath at [facility] 2003 Hx Anesthesia Reactions: No - Immunization History Date of Tetanus Vaccine: unknown Date of Influenza Vaccine: 2011 Infectious Disease History: No Infectious Disease History: Denies: Hx Clostridium Difficile, Hx Hepatitis, Hx Human Immunodeficiency Virus (HIV), Hx of Known/Suspected MRSA, Hx Shingles, Hx Tuberculosis, Hx Known/ Suspected VRE, Traveled Outside the [place] in Last 30 Days - Family History Known Family History: Positive: None, Cardiac Disease, Hypertension, Diabetes - Social History Alcohol Use: None Hx Substance Use: No Substance Use Type: Reports: None Hx Tobacco Use: No Smoking Status (MU): Never Smoked Tobacco Have You Smoked in the Last Year: No Review of Systems Negative: Fever, Chills Negative: Chest Pain Negative: Shortness Of Breath Positive: Abdominal Pain - flanks. Negative: Vomiting, Nausea Positive: dysuria. Negative: hematuria Positive: Edema - bilaterally in legs All Other Systems Reviewed And Are Negative: Yes Physical Exam - Summary Physical Exam Summary: VITAL SIGNS: Reviewed. GENERAL: Patient is an obese male who is lying comfortable in the stretcher. Patient is not in any acute respiratory distress. HEAD AND FACE: Normocephalic and atraumatic. EYES: PERRLA, EOMI x 2, No injected conjunctiva. EARS: Hearing grossly intact. Ear canals and tympanic membranes are WNL. MOUTH: Oropharynx within normal limits. NECK: Supple, trachea is midline, no adenopathy, no JVD. CHEST: Symmetric, no tenderness at palpation LUNGS: Clear to auscultation bilaterally. No wheezing or crackles. CVS: RRR, S1 and S2 present, no murmurs or gallops appreciated. ABDOMEN: Right flank TTP. Dry skin. Abdomen distended and nontender. Positive bowel sounds. No rebound no guarding, and no masses palpated. No abdominal bruit or pulsations. EXTREMITIES: FROM in all major joints, lower extremity edema 1+, no cyanosis or clubbing. NEURO: Alert and oriented x 3. No acute neurological deficits. Speech is normal. SKIN: Dry skin Triage Information Reviewed: Yes Vital Signs On Initial Exam: Initial Vitals Temp Pulse Resp BP Pulse Ox 98.4 F 80 20 168/84 99 06/06/18 15:10 06/06/18 15:10 06/06/18 15:10 06/06/18 15:10 06/06/18 15:10 Vital Signs Reviewed: Yes Skin: Positive: Dry Diagnostics - Vital Signs Vital Signs Temp Pulse Resp BP Pulse Ox 06/06/18 15:10 98.4 F 80 20 168/84 99 - Laboratory Result Diagrams: 06/06/18 15:55 06/06/18 15:55 Lab Statement: Any lab studies that have been ordered have been reviewed, and results considered in the medical decision making process. - CT abdomen/pelvis CT Interpretation Completed By: Radiologist - Enlarged right kidney relative to the left unchanged from previous exam. No hydronephrosis or obstructive uropathy is noted. No other masses or fluid collections are noted. No hernias are identified. This report has been reviewed by the ED physician. - EKG 15:54 Cardiac Rate: NL - 72 bpm EKG Rhythm: Sinus Rhythm Summary of EKG Findings: no ST elevation Abdominal Pain Fem Course/Dx - Course Assessment/Plan: A 67 y/o male brought in by ambulance presents to the ED c/o right and left flank pain. He states that he has had this pain starting weeks ago [employer] on 06/06/2018. He rates his pain as 8/10. He denies N/V, CP, SOB, fevers , chills and hematuria. He also c/o high blood pressure, swelling of his legs and dysuria. He claims to have had this flank pain before but he does not know why he has this pain. He denies having a previous CT done. Blood work without any significant abnormality except for glucose of 136 and lactic acid 2.2. Abdominopelvic CT impression: Large right kidney relative to the left flank change from previous exam. No hydronephrosis or obstructive uropathy is noted. No other masses or fluid collections are noted. No hernias are identified. In the ED course the patient was given IV fluids and [place] for the pain. After medications the patient is feeling better. Therefore the patient was discharged home with follow-up with primary care physician. I discussed all the findings and test results with the patient. Patient was instructed to return to the emergency room immediately if any of the symptoms return or worsens. Plan of care was discussed with the patient and understands and agrees. All questions were answered at patient satisfaction. There were no further complaints or concerns. Lung exam before discharge: CTA B/L. Good air exchange. No wheezing or crackles heard. CVS: S1 and S2 present. No murmurs appreciated. Patient is alert and oriented x 3. Patient is hemodynamically stable. Patient will be discharged home with follow up PCP in the next 2-3 days - Diagnoses Differential Diagnosis/HQI/PQRI: Bowel Obstruction, Constipation, Ureteral Stone , Urinary Tract Infection Provider Diagnoses: Flank pain, Uncontrolled hypertension Discharge - Sign-Out/Discharge Documenting (check all that apply): Patient Departure - Discharge Plan Condition: Stable Disposition: HOME Patient Education Materials: Chronic Hypertension (ED), Flank Pain (ED) Referrals: Guille Astudillo MD [Primary Care Provider] - 3 Days Additional Instructions: Return to the ED if you experience any worsening or new symptoms. - Billing Disposition and Condition Condition: STABLE Disposition: Home - Attestation Statements Document Initiated by Scribe: Yes Documenting Scribe: Sidney Hobson Provider For Whom Scribe is Documenting (Include Credential): Grabiel Hare MD Scribe Attestation: ISidney scribed for Grabiel Hare MD on 06/07/18 at 0838. Scribe Documentation Reviewed: Yes Provider Attestation: The documentation as recorded by the Sidney cano accurately reflects the service I personally performed and the decisions made by me, Grabiel Hare MD Attestations User Type: Provider with Scribe Provider Attestation: The documentation recorded by the scribe accurately reflects the service I personally performed and the decisions made by me.
[2018-06-06 16:07] LABS: ABS Basophils 0 10^3/ul (0-0.2); ABS Eosinophils 0.1 10^3/ul (0-0.6); ABS Lymphocytes 1.8 10^3/ul (1.0-4.8); ABS Monocytes 0.7 10^3/ul (0-0.8); ABS Neutrophils 3.2 10^3/ul (1.5-7.7); ABS Nucleated RBC 0 10^3/ul; Eosinophil % 0.9 % (0-6); Hematocrit 44 % (42-52); Hemoglobin 15.1 g/dl (14.0-18.0); Lymphocyte % 31.3 % (25-47); Mean Corpuscular HGB Conc 34 g/dl (31-36); Mean Corpuscular Hemoglobin 32 pg (27-31); Mean Corpuscular Volume 93 fL (80-94); Mean Platelet Volume 7.6 fL (7.4-10.4); Nucleated Red Blood Cells % 0.1; Platelet Count 181 10^3/ul (150-450); Red Blood Count 4.74 10^6/ul (4.00-5.40); Red Cell Distribution Width 13 % (10.5-15); White Blood Count 5.7 10^3/ul (3.5-10.8)
[2018-06-06] MEDS ORDERED: HYDROcodone/ACETAMIN 5-325 MG* 1 TAB PO ONE (19:03)
[2018-06-06] MEDS ORDERED: NS 0.9% 500 ML* 500 ML IV ONE (19:03)
[2018-06-06 19:11] LABS: Urine Appearance Clear; Urine Blood Negative (Negative); Urine Color Straw; Urine Ketones Negative (Negative); Urine Protein Negative (Negative); Urine Specific Gravity 1.006 (1.010-1.030); Urine Urobilinogen Negative (Negative)
[2018-06-06] MEDS ORDERED: Hydrochlorothiazide TAB* 25 MG PO ONE (20:17)
[2018-06-06] MEDS ORDERED: Lisinopril TAB* 10 MG PO ONE (20:17)
[2018-06-06 21:14] VITALS: BP 114/72
== END 2018-06-06 21:13 | disposition home or self-care (01) ==
LOC: ED 15:04
DX: R10.84 Generalized abdominal pain (principal); I10 Essential (primary) hypertension; R30.0 Dysuria; R60.0 Localized edema
CPT/HCPCS: 36415; 74176; 80053; 81003; 82150; 82550; 83605; 83690; 83735; 83880; 84484; 85025; 86140; 93005; 96360; 99283; A9270-GY

== ENCOUNTER 2018-09-09 06:14 | Emergency (ER) | payer MEDICARE, MEDICAID ==
--- OUTSIDE RECORDS SUMMARY | 2018-09-09 06:36 | XMS REPORT | Continuity of Care Document ---
:1950 External Reference #:[id number] Author Name Nicola Lacey Care Team Providers Name Role Phone Tamie Russo MD Care Team Information Desk Director Unavailable Guille Astudillo MD Primary Care Physician Unavailable Payers Type Date Identification Numbers Payment Provider Subscriber Policy Number: [id number] Medicare Sachin Cedeno PayID: [id number] [address] [place] [address] Effective: 2014 Policy Number: [id number] Medicaid Sachin Cedeno Group Name: 1 1 [address] PayID: [id number] [place] [address] Advance Directives Description No Information Available Problems Date Description Provider Status Onset: 09/23/2014 [...] well Social History Type Date Description Comments Sex Unknown Marital Status Single Lives With Alone [place] Occupation Disabled Hand Dominance Left-handed Tobacco Use Start: Unknown Never Smoked Cigarettes Smoking Status Reviewed: 08/21/18 Never Smoked Cigarettes ETOH Use Denies alcohol use Recreational Drug Use Former Drug User Tobacco Use Start: Unknown Patient has never smoked Exercise Type/Frequency Exercises regularly Allergies, Adverse Reactions, Alerts Date Description Reaction Status Severity Comments 03/30/2014 Darvocet Urticaria Active 05/13/2015 Haldol Active 05/13/2015 Ambien Active Medications Medication Date Status Form Strength Qnty SIG Indications Ordering Provider Carbidopa-Levodo 08/21 Active Tablets 25-100mg 75tab 1 pill in F31.9 [place] /2018 s am, 1 Renee Clancy pill at noon and 1/2 pill at dinner, take 30 min prior to meals Senna-Docusate 12/15 Active Tablets 8.6-50mg 30tab 2 [...] in the evening as needed muscle spasms [place] Active Tablets 5-325mg one tab Unknown /0000 by mouth every 4-6 hours as needed pain Pyridium Active Tablets 100mg one by Unknown /0000 mouth three times a day as Needed Gabapentin Active Capsules 100mg 3 Unknown /0000 capsules by mouth 3 times a day Carbidopa-Levodo 06/18 Hx Tablets 25-100mg 90tab 1 tab F31.9 Dexter obando felipe Clancy M.D. - times per /2018 Mobic 05/13 Hx Tablets 7.5mg 30tab once s daily Corey, - with food M.D. 05/08 as needed Neurontin 05/13 Hx Capsules 300mg 30cap 1 by Cayetano s mouth Corey, - every M.D. 02/13 night at bedtime Aspir-81 03/[address] 81mg 1 by Dylan Gamino /2013 mouth Pollack, - every day M.D. 09/12 prn Celexa 10/08 Hx Tablets 60mg 90tab 1 PO qd Juan Carlos Barnes felipe Lambert M.D. - 03/30 Lamictal 10/08 Hx Tablets 300mg 1 PO qd Juan Carlos Barnes Renee Lambert - 03/30 Seroquel 10/08 Hx Tablets 25mg 60tab in am and Juan Carlos Barnes felipe Lambert M.D. - 03/30 50 mg at hs Lexapro 01/16 Hx Tablets 30mg 1 PO qd Juan Carlos Lambert M.D. - 10/08 Ambien CR 01/16 Hx Tablets ER 12.5mg 1 Tablet Juan Carlos Barnes Ashley PO Q hs Renee Lambert - prn [...] - 03/30 Ativan 01/16 Hx Tablets 1mg /2 tab Juan Carlos Barnes Ashley in am and Renee Lambert - noon 03/30 2 mg at hs Finasteride 01/16 Hx Tablets 5mg 1 PO qhs Juan Carlos Barnes Renee Lambert - 10/08 Ranitidine HCL 01/16 Hx Capsules 150mg 1 To 2 qd Juan Carlos Barnes Renee Lambert - 03/30 Atenolol 01/31 Hx Tablets 25mg [...] 30cap 1 PO qd Juan Carlos Barnes felipe Lambert M.D. - 01/16 Colace 01/30 Hx Capsules 100mg [...] 90cap 1 po bid Juan Carlos Barnes felipe Lambert M.D. - 01/31 Remeron 01/05 Hx Tablets 15mg 30tab one po q Juan Carlos Barnes s hs Renee Lambert - 01/31 Klonopin 01/05 Hx Tablets 2mg 2mg qhs Juan Carlos Barnes Renee Lambert - 01/31 Naproxen 01/05 Hx Tablets 500mg 1 po bid Juan Carlos Barnes Renee Lambert - 01/31 Klonopin 01/05 Hx Tablets 2mg 2mg qhs Juan Carlos Barnes prn Renee Lambert - 01/31 Diclofenac 01/05 Hx Tablets 50mg 1 po tid Juan Carlos Barnes prn Renee Lambert - 01/16 Groom 07/04 Hx Capsules 300mg 1 po am Juan Carlos Barnes Renee Lambert - 01/05 Depakote 07/04 Hx Tablets 500mg 3 tabs Juan Carlos Barnes qred Lambert M.D. - 01/05 Nitrostat 05/26 Hx Tablets 0.4mg [...] 30tab 1 po bid Juan Carlos Barnes s Renee Lambert - 01/31 Seroquel 08/19 Hx Tablets 200mg 1 po qam Juan Carlos Barnes Martita Lambert M.D. - 02/23 Seroquel 08/19 Hx Tablets 700mg qhs Juan Carlos Barnes Renee Lambert - 02/23 Clonazepam 08/19 Hx Tablets 1mg 30tab 1 po qamJuan Carlos s 2 hs Renee Lambert - 01/05 leschol 08/19 Hx Tablets 80mg 1 po qd Juan Carlos Barnes Renee Lambert - 02/23 Klor-Con M10 08/19 Hx Tablets 10Meq 360ta qd Juan Carlos Barnes bs Renee Lambert - 09/26 Aspirin Enteric 08/19 Hx Tablets 81mg qd Juan Carlos Barnes Renee Lambert - 09/12 Vitram 08/19 Hx Tablets 50mg q6h prn Juan Carlos Gonsalez2003 pain Renee Lambert - 02/23 Flurazepam 08/19 Hx Capsules 30mg qhs Juan Carlos Barnes Renee Lambert - 02/23 Groom 08/19 Hx Capsules 600mg 30cap 1 po qaJuan Carlos morales s 1 po qhs Renee Lambert - 07/04 Nitro-Dur 08/19 Hx Patches 0.2mg/Laura 30uni 1 to Juan Carlos Barnes r ts chest Renee Lambert - wall qam 08/24 off qpm /2003 Tegretol 04/20 Hx Tablets 400mg 90tab qam Juan Carlos Barnes s Renee Lambert - 08/19 Tegretol 04/20 Hx Tablets 500mg 90tab qpm Juan Carlos Barnes s Renee Lambert - 08/19 Atenolol 04/20 Hx Tablets 50mg 90tab 1 po qd Juan Carlos Barnes felipe Lambert M.D. - 01/31 Lasix 04/20 Hx Tablets 20mg 30tab 1 po qd Juan Carlos Barnes felipe Lambert M.D. - 01/31 Seroquel 04/20 Hx Tablets 100mg 90tab qam Juan Carlos Barnes felipe Lambert M.D. - 08/19 Seroquel 04/20 Hx Tablets 600mg 90tab qeve Juan Carlos Barnes Darryl Lambert M.D. - 08/19 Klonopin 04/20 Hx Tablets 1mg 90tab tid Juan Carlos Barnes Darryl Lambert M.D. - 08/19 Lescol 04/20 Hx Capsules 20mg 90cap one qhs Juan Carlos Barnes felipe Lambert M.D. - 08/19 Seroquel Hx Tablets 300mg at at Unknown /0000 bedtime - 09/12 Divalproex Hx Tablets ER 500mg 2 PO QHS Unknown Sodium ER /0000 24HR - 12/14 Donepezil HCL Hx Tablets 10mg Karan, /0000 MD Tamie - 09/12 Voltaren Hx Gel 1% Unknown / - 09/12 Docqlace Hx Capsules 100mg Unknown /0000 - 09/12 Cyclobenzaprine Hx Tablets 10mg [place]ow, HCL /0000 Guille Mi MD - 09/12 Diphenhydramine Hx Capsules 25mg Unknown HCL / - 09/12 Hydrocodone-Ibup Hx Tablets 7.5-200mg Unknown rofen / - 09/12 Groom Hx Capsules 300mg Unknown Carbonate / - 09/12 Oxycodone-Acetam Hx Tablets 5-325mg Xuan inophen /0000 MD Alicia - 09/12 Lorazepam Hx Tablets 0.5mg Unknown / - 09/12 Proair HFA Hx Aerosol 108(90Bas Unknown /0000 e) - mcg/Act 05/10 Vesicare Hx Tablets 5mg Unknown / - 09/12 Ibuprofen Hx Tablets 600mg 1 by Unknown /0000 mouth - three 05/10 times day as needed Metaxalone 00/00 Hx Tablets 400mg 1 tablet Unknown /0000 by nouth - two times 02/13 Tramadol HCL 00 Hx Tablets 50mg 2 tablets Unknown /0000 every 8 - hours as 05/10 needed for pain Furosemide 00/ Hx Tablets 20mg 2 by Unknown /0000 mouth - every 05/10 3 tablets in evening Multivitamin 0000 Hx Tablets one by Unknown Adult /0000 mouth - every day 12/14 Miralax Hx Packet [id number] 17 gm Unknown /0000 every day - 05/10 Cogentin 00 Hx Tablet 0.5mg 1 by Unknown /0000 mouth - twice a Colace Hx Capsules 100mg 1 by Unknown /0000 mouth - twice a Oxybutynin 0000 Hx 5mg 1 tablet Unknown Chloride ER /0000 daily - 05/08 Calcium Antacid Hx 2 tablets Unknown /0000 every - 12hrs prn 02/13 Lactulose 00 Hx 30ml Unknown /0000 daily prn - 05/10 Neurontin 00 Hx 300MFG 1 tablet Unknown /0000 daily - 02/13 Oxycodone-Acetam 00/00 Hx 7.5/325 1 tablet Unknown inophen /0000 at - bedtime 05/10 pr Meloxicam 00/00 Hx Tablets 7.5mg take 1 Unknown /0000 tab by - mouth 02/13 qdail with food Lorazepam 0000 Hx Tablets 0.5mg 1 po qhs Unknown /0000 - 02/13 Polyethylene 00/ Hx Powder every day Unknown Glycol /0000 with a - large 06/18 glass water Divalproex [address] 500mg take one Unknown Sodium /0000 tablet by - mouth 06/18 twice day 17GM 00/ Hx Packet 3350NF as needed Unknown /0000 - 05/04 Acetaminophen 00/00 Hx Tablets 500mg as Needed Unknown /0000 - 01/07 Immunizations Description No Information Available Vital Signs Date Vital Result Comment 08/21/2018 1:27pm Height 67 inches 5'7" Weight 259.25 lb Heart Rate 99 /min BP Systolic Sitting 150 mmHg large adult cuff left arm BP Diastolic Sitting 86 mmHg large adult cuff left arm Body Temperature 97.5 F O2 % BldC Oximetry 97 % at rest on room air BMI (Body Mass Index) 40.6 kg/m2 05/05/2018 9:39am Height 67 inches 5'7" Weight 252.00 lb Heart Rate 68 /min BP Systolic 146 mmHg BP Diastolic 84 mmHg Respiratory Rate 16 /min BMI (Body Mass Index) 39.5 kg/m2 01/08/2018 2:08pm Height 67 inches 5'7" Weight 248.00 lb Heart Rate 70 /min BP Systolic 122 mmHg BP Diastolic 82 mmHg BMI (Body Mass Index) 38.8 kg/m2 06/18/2017 2:21pm Height 67 inches 5'7" Weight 270.00 lb Heart Rate 78 /min BP Systolic 142 mmHg BP Diastolic 88 mmHg BMI (Body Mass Index) 42.3 kg/m2 02/14/2017 1:26pm Height 67 inches 5'7" Weight 266.00 lb with out shoes Heart Rate 82 /min BP Systolic Sitting 130 mmHg Rue lg cuff BP Diastolic Sitting 76 mmHg Rue lg cuff Respiratory Rate 17 /min BMI (Body Mass Index) 41.7 kg/m2 10/02/2016 1:14pm Height 67 inches 5'7" Weight 263.00 lb Heart Rate 76 /min BP Systolic Sitting 152 mmHg BP Diastolic Sitting 90 mmHg Respiratory Rate 14 /min O2 % BldC Oximetry 98 % BMI (Body Mass Index) 41.2 kg/m2 05/09/2016 1:28pm Height 67 inches 5'7" Weight 265.75 lb w/shoes Heart Rate 88 /min BP Systolic Sitting 158 mmHg LA lg cuff BP Diastolic Sitting 98 mmHg LA lg cuff BMI (Body Mass Index) 41.6 kg/m2 Ejection Fraction 60-65% Echo 03/28/16 12/16/2015 2:18pm Height 67 inches 5'7" Weight 233.00 lb w/shoes Heart Rate 70 /min BP Systolic Sitting 140 mmHg LA lg cuff BP Diastolic Sitting 80 mmHg LA lg cuff BMI (Body Mass Index) 36.5 kg/m2 Ejection Fraction 55-60% Echo 12/30/14 11/07/2015 10:10am Height 67 inches 5'7" Weight 255.00 lb Heart Rate 78 /min BP Systolic Sitting 160 mmHg BP Diastolic Sitting 90 mmHg Pain Level 7 BMI (Body Mass Index) 39.9 kg/m2 09/27/2015 2:12pm Height 67 inches 5'7" Heart Rate 64 /min BP Systolic Sitting 146 mmHg BP Diastolic Sitting 82 mmHg Respiratory Rate 16 /min 09/13/2015 2:41pm Height 67 inches 5'7" Weight 230.00 lb Patient reported Heart Rate 80 /min BP Systolic Sitting 138 mmHg BP Diastolic Sitting 84 mmHg Respiratory Rate 16 /min BMI (Body Mass Index) 36.0 kg/m2 05/13/2015 10:11am Height 67 inches 5'7" Weight 235.00 lb Heart Rate 94 /min BP Systolic Sitting 160 mmHg BP Diastolic Sitting 86 mmHg Respiratory Rate 22 /min Pain Level 7 BMI (Body Mass Index) 36.8 kg/m2 09/23/2014 12:45pm Height 68 inches 5'8" Weight 247.12 lb with shoes on Heart Rate 85 /min BP Systolic Sitting 142 mmHg BP Diastolic Sitting 82 mmHg Respiratory Rate 20 /min Body Temperature 98.9 F O2 % BldC Oximetry 98 % BMI (Body Mass Index) 37.6 kg/m2 Neck Circumference in inches 17.25 03/30/2014 11:04am Height 68 inches 5'8" Weight 246.00 lb Heart Rate 78 /min BP Systolic Sitting 126 mmHg BP Diastolic Sitting 80 mmHg Pain Level 5 ack BMI (Body Mass Index) 37.4 kg/m2 06/09/2009 9:56am Height 68 inches 5'8" Weight 238.00 lb Heart Rate 90 /min BP Systolic Sitting 120 mmHg BP Diastolic Sitting 90 mmHg BP Systolic Standing 140 mmHg BP Diastolic Standing 90 mmHg BMI (Body Mass Index) 36.2 kg/m2 10/09/2007 2:22pm Height 68 inches 5'8" Weight 244.00 lb Heart Rate 92 /min BP Systolic Sitting 130 mmHg BP Diastolic Sitting 84 mmHg Respiratory Rate 20 /min O2 % BldC Oximetry 90 % BMI (Body Mass Index) 37.1 kg/m2 01/16/2007 3:14pm Height 68 inches 5'8" Weight 221.00 lb Heart Rate 59 /min BP Systolic Sitting 120 mmHg BP Diastolic Sitting 70 mmHg BP Systolic Standing 110 mmHg BP Diastolic Standing 70 mmHg BMI (Body Mass Index) 33.6 kg/m2 01/31/2006 2:40pm Height 68 inches 5'8" Weight 221.00 lb Heart Rate 45 /min BP Systolic Sitting 130 mmHg R BP Diastolic Sitting 78 mmHg R BP Systolic Standing 120 mmHg R BP Diastolic Standing 70 mmHg R BMI (Body Mass Index) 33.6 kg/m2 01/05/2005 3:55pm Height 68 inches 5'8" Weight 250.00 lb Heart Rate 67 /min BP Systolic Sitting 138 mmHg BP Diastolic Sitting 94 mmHg BP Systolic Standing 130 mmHg BP Diastolic Standing 90 mmHg BMI (Body Mass Index) 38.0 kg/m2 07/04/2004 3:50pm Height 68 inches 5'8" Weight 235.00 lb Heart Rate 69 /min BP Systolic Sitting 120 mmHg BP Diastolic Sitting 80 mmHg BP Systolic Standing 116 mmHg BP Diastolic Standing 78 mmHg BMI (Body Mass Index) 35.7 kg/m2 02/24/2004 2:36pm Height 68 inches 5'8" Weight 228.00 lb Heart Rate 67 /min BP Systolic Sitting 120 mmHg L BP Diastolic Sitting 74 mmHg L BP Systolic Standing 126 mmHg L BP Diastolic Standing 70 mmHg L BMI (Body Mass Index) 34.7 kg/m2 08/19/2003 4:00pm Height 68 inches Weight 242.00 lb Heart Rate 64 /min BP Systolic Sitting 118 mmHg BP Diastolic Sitting 78 mmHg BP Systolic Standing 120 mmHg BP Diastolic Standing 84 mmHg BMI (Body Mass Index) 36.8 kg/m2 04/21/2003 3:34pm Height 68 inches Weight 230.00 lb Heart Rate 71 /min BP Systolic Sitting 134 mmHg BP Diastolic Sitting 84 mmHg BP Systolic Standing 124 mmHg BP Diastolic Standing 80 mmHg BMI (Body Mass Index) 35.0 kg/m2 Results Test Date Facility Test Result H/L Range Note Laboratory test 09/26/[address] [facility] TSH 0.23 ?IU/mL Low 0.34 -5.60 1, [address] ([place] [address] Stim Horm) [phone] Free T4 (Free Thyroxine) 0.95 ng/dL N 0.61-1.12 3 Vitamin B12 340 pg/mL N 180-914 4 Folic Acid (Folate) > 20.00 ng/mL N >3.99 5 Methylmalonic Acid Mma 0.21 nmol/mL N <=0.40 6 Dulce (Antinuclear Antibodies) Negative N Negative 7 Erythrocyte Sed Rate 3 mm/Hr N 0-40 8 C Reactive Protein < 1.00 mg/L N < 5.00 9 Protein 09/26/[address] [facility] Total 7.1 g/dL N 6.3 - Electrophoresis [address] Protein(Pep) 7.9 [place] [address] [phone] Albumin 3.7 g/dL N 3.4-4.7 Alpha-1 Globulin 0.3 g/dL N 0.1-0.3 Alpha-2 Globulin 0.9 g/dL N 0.6-1.0 Beta Globulin 0.9 g/dL N 0.7-1.2 Gamma Globulin 1.3 g/dL N 0.6-1.6 Albumin/Globulin Ratio 1.06 N Impression See Comment N 10 Laboratory test 09/26/[address] [facility] Hemoglobin A1c 5.8 % N Less than [address] (Glyco HGB) 6.0 [place] [address] [phone] Laboratory test 10/15/[address] [facility] Erythrocyte Sed 1 MM/HR 0-[address] [place] [address] [phone] CBC With Manual 10/15/[address] [facility] White Blood 5.2 CUMM 4.8-10.[address] [place] [address] [phone] Absolute Neutrophil Count 2.9 Atypical Lymph 4 [...] WDTH 13 % 10.5-15 Lipid Profile 10/15/[address] [facility] Cholesterol/HDL 4.40 1- 4.97 (Trig/Chol/HDL) [address] [place] [address] [phone] Cholesterol 207 mg/dL High Less Than 200 12 Triglyceride 103 mg/dL 40-200 High Density Lipoprotein 47 mg/dL 40-60 Low Density Lipoprotein 139 mg/dL High Less Than 100 13 Comp Metabolic Panel 10/15/[address] [facility] One Over Creatinine 0.[address] [place] [address] [phone] Anion Gap 6.0 mmol/L 2-11 14 Albumin/Globulin [...] 8-20 Creatinine 1.1 mg/dL 0.5-1.4 Laboratory test 10/15/[address] [facility] D Dimer < 200 < 230 [address] Quantitative NG/ML [place], [place] [id number] [phone] BNP Evaluatr < 7.5 pg/mL Low 7.5-100 CPK (Creatine Kinase) 211 U/L High 0-200 C Reactive Protein < 0.5 mg/dL Less Than 0.5 1 similar to TSH in 2006, free T4 normal 2 with immunofixation Copy Result to: GUILLE ASTUDILLO ([id number]) 3 with immunofixation Copy Result to: GUILLE ASTUDILLO ([id number]) 4 Normal Range 180 to 914 Indeterminate Range 145 to 180 Deficient Range <145 5 with immunofixation Copy Result to: GUILLE ASTUDILLO ([id number]) 6 Test Performed by: [place] [address] Aircraft Technician: Nathan Ruffin II, M.D., Ph.D. 7 with immunofixation Copy Result to: GUILLE ASTUDILLO ([id number]) 8 with immunofixation Copy Result to: GUILLE ASTUDILLO ([id number]) 9 Acute inflammation: >10.00 10 RESULT: No apparent monoclonal protein on serum electrophoresis. Test Performed by: [place] [address] Aircraft Technician: Nathan Ruffin II, M.D., Ph.D. 11 Therapeutic target for the treatment of diabetes Mellitus patients is <7% HBA1C, and in selective patients <6.0%.Please refer to [place] [employer] Diabetic care guidelines for further [...] greater than 20 ug/ml . Procedures Date Code Description Status 03/14/2017 74029 ECHO Transthoracic, Real-Time 2D With Doppler And Color Completed Flow 02/14/2017 84527 EKG Tracing & Interpretation Completed 10/31/2016 58580 Polysomnography Sleep Staging 4+ Parameters W/Cpap Completed 03/28/2016 19591 ECHO Transthoracic, Real-Time 2D With Doppler And Color Completed Flow 03/07/2016 99483 Treadmill Interp/Report Only Completed 03/07/2016 71960 Stress Test Supervsn W/Out I/R Completed 12/30/2015 29004 Treadmill Interp/Report Only Completed 12/30/2015 46916 Stress Test Supervsn W/Out I/R Completed 12/16/2015 75265 EKG Tracing & Interpretation Completed 10/10/2015 03504 EKG, Interpretation Only Completed 10/03/2015 94168 EKG, Interpretation Only Completed 12/30/2014 10474 ECHO Transthorasic Realtime 2D W Doppler & Color Flow Hosp Completed 07/08/2012 31527 EKG, Interpretation Only Completed 07/06/2012 01483 EKG, Interpretation Only Completed 06/09/2009 02910 EKG Tracing & Interpretation Completed 10/22/2007 04299 ECHO/Stress Completed 10/22/2007 99683 ECHO/Stress Completed 10/22/2007 67704 Stress Test Completed 10/09/2007 29224 EKG Tracing & Interpretation Completed 01/16/2007 87839 EKG Tracing & Interpretation Completed 01/16/2007 07964 EKG Tracing & Interpretation Completed 03/12/2006 45728 Color Doppler Completed 03/12/2006 34196 Pulse Doppler & Continuous Wave Completed 03/12/2006 52012 Echocardiogram Completed 03/12/2006 05821 Echocardiogram Completed 01/31/2006 85004 EKG Tracing & Interpretation Completed 01/05/2005 67381 EKG Tracing & Interpretation Completed 07/04/2004 18946 EKG Tracing & Interpretation Completed 06/14/2004 18176 EKG, Interpretation Only Completed 02/24/2004 86622 EKG Tracing & Interpretation Completed 09/08/2003 10969 Intro. Needle Or Intracath.,Vein Completed 09/08/2003 24986 IV Infusion For DX/Upt To 1 HR. Completed 09/08/2003 19753 Stress Test Completed 09/08/2003 49999 ECHO/Stress Completed 08/19/2003 81872 ECHO/Stress Completed 08/19/2003 73144 Stress Test Completed 05/09/2003 39213 EKG, Interpretation Only Completed 05/08/2003 81526 EKG, Interpretation Only Completed 05/03/2003 75500 EKG, Interpretation Only Completed 04/21/2003 70411 EKG Tracing & Interpretation Completed 04/09/2003 22956 EKG, Interpretation Only Completed Encounters Type Date Location Provider Dx Diagnosis Office Visit 08/21/2018 [facility] Dexter Clancy, F31.9 Bipolar disorder, 1:30p Services Of Kristie Duran unspecified G20 Parkinson's disease Office Visit 05/05/2018 Mao Clancy, R25.1 Tremor, 9:30a Neurologic MAllyn unspecified Services Of Kristie F31.9 Bipolar disorder, unspecified Office Visit 02/27/2018 1:00p Wound Care Teddy Barnes S81.801D Unspecified open Center [facility] Renee Anne wound, right lower leg, subs encntr I89.0 Lymphedema, not elsewhere classified I10 Essential (primary) hypertension Office Visit 02/20/2018 1:00p Wound Care Teddy Barnes S81.801A Unspecified open Center AT [facility] Liza Anne. wound, right lower leg, initial encounter I89.0 Lymphedema, not elsewhere classified I10 Essential (primary) hypertension Office Visit 01/08/2018 [facility] Flakita Best, G20 Parkinson's 2:30p Clinic MD disease Office Visit 06/18/2017 [facility] Flakita Best, R29.6 Repeated falls 2:00p Clinic R25.1 Tremor, unspecified Office Visit 02/14/2017 Archana Jameson G47.33 Obstructive sleep 2:00p Cardiology Of Renee Mcmillan apnea (adult) Hebrew Professor (pediatric) E66.01 Morbid (severe) obesity due to excess calories E78.5 Hyperlipidemia, unspecified I71.9 Aortic aneurysm of unspecified site, without rupture I10 Essential (primary) hypertension Z68.41 Body mass index (BMI) 40.0-44.9, adult Office Visit 10/02/2016 1:00p Pulmonology And Salma G47.9 Sleep disorder, Sleep Services Of MD Jerri unspecified Hebrew Professor G47.33 Obstructive sleep apnea (adult) (pediatric) E66.01 Morbid (severe) obesity due to excess calories Office Visit 06/06/2016 [facility] R07.9 Chest pain, 12:27p Assoc,pc Saqib, ROOFER ASSISTANT unspecified Hospitalists G47.33 Obstructive sleep apnea (adult) (pediatric) E78.5 Hyperlipidemia, unspecified I10 Essential (primary) hypertension Office Visit 05/09/2016 1:40p [place] Art SDelonte E66.9 Obesity, Cardiology Renee Mcmillan unspecified I71.9 Aortic aneurysm of unspecified site, without rupture I10 Essential (primary) hypertension E78.5 Hyperlipidemia, unspecified Office Visit 12/16/2015 2:40p [facility] Art SDelonte I10 Essential Renee Mcmillan (primary) hypertension F31.9 Bipolar disorder, unspecified G20 Parkinson's disease R60.9 Edema, unspecified R06.02 Shortness of breath E66.9 Obesity, unspecified I71.9 Aortic aneurysm of unspecified site, without rupture Office Visit 11/07/2015 Neurosurgery Teddy Diaz, M48.07 Spinal stenosis , 10:30a Services Of Kristie Duran lumbosacral region Office Visit 10/10/2015 [facility] Shadi R29.6 Repeated falls 2:57p Assoc,meng Pizarro M.D. 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 disease Hospitalists R26.9 Unspecified abnormalities of gait and mobility Office Visit 06/11/2015 [facility] Mitchell George G20 Parkinson's 8:33a Assoc,meng DAY M.D. disease Hospitalists R26.9 Unspecified abnormalities of gait and mobility Office Visit 05/13/2015 11:00a Orthopedic Cayetano S33.6xxA Sprain of Services Of Renee Nicole sacroiliac C.M.A. joint, initial encounter M54.32 Sciatica, left side Office Visit 01/27/2015 [facility] Damaris Rodriguez, 333.90 Extrapyramidal 11:12a Assoc,pc N.P. Disease & Abnormal Hospitalists Movement Disorder Unspec 780.79 Malaise And Fatigue Other 724.2 Lumbago 296.80 Bipolar Disorder NOS Office Visit 01/26/2015 [facility] Damaris Rodriguez, 333.90 Extrapyramidal 11:12a Assoc,pc N.P. Disease & Abnormal Hospitalists Movement Disorder Unspec 724.2 Lumbago 780.79 Malaise And Fatigue Other 296.80 Bipolar Disorder NOS Office Visit 01/25/2015 [facility] Damaris Rodriguez, 333.90 Extrapyramidal 11:12a Assoc,pc N.P. Disease & Abnormal Hospitalists Movement Disorder Unspec 780.79 Malaise And Fatigue Other 724.2 Lumbago 296.80 Bipolar Disorder NOS Office Visit 01/24/2015 [facility] Brandy S. 333.90 Extrapyramidal 11:11a Assoc,pc Silvino, N.P. Disease & Abnormal Hospitalists Movement Disorder Unspec 724.2 Lumbago 780.79 Malaise And Fatigue Other 296.80 Bipolar Disorder NOS Office Visit 01/23/2015 11:10a [facility] Asserick,meng Dubois, 724.2 Lumbago Hospitalists N.P. 780.79 Malaise And Fatigue Other 333.90 Extrapyramidal Disease & Abnormal Movement Disorder Unspec 296.80 Bipolar Disorder NOS Office Visit 01/22/2015 11:09a [facility] Brandy S. 780.79 Malaise And Assoc,pc Silvino, N.P. Fatigue Other Hospitalists 333.90 Extrapyramidal Disease & Abnormal Movement Disorder Unspec 724.2 Lumbago 296.80 Bipolar Disorder NOS Office Visit 01/21/2015 11:09a [facility] Damaris Michael, 780.79 Malaise And Assoc,pc N.P. Fatigue Other Hospitalists 724.2 Lumbago 333.90 Extrapyramidal Disease & Abnormal Movement Disorder Unspec 296.80 Bipolar Disorder NOS Office Visit 01/01/2015 10:21a [facility] [facility] Brandy S. 584.9 Acute Kid[facility] Assoc,pc Silvino, N.P. Failure, Hospitalists Unspecified 332.0 Paralysis Agitans 401.9 Hypertension Unspec 296.80 Bipolar Disorder NOS Office Visit 12/31/2014 10:20a [facility] Brandy S. 584.9 Acute Kidney Assoc,pc Silvino, N.P. Failure, Hospitalists Unspecified 332.0 Paralysis Agitans 401.9 Hypertension Unspec 296.80 Bipolar Disorder NOS Office Visit 12/30/2014 [facility] 584.9 Acute Kidney 10:19a Assoc,pc Francheska, ROOFER ASSISTANT Failure, Hospitalists Unspecified 332.0 Paralysis Agitans 401.9 Hypertension Unspec 296.80 Bipolar Disorder NOS Office Visit 12/29/2014 10:18a [facility] Damaris Rodriguez, 584.9 Acute Kidney Assoc,pc N.P. Failure, Hospitalists Unspecified 332.0 Paralysis Agitans 401.9 Hypertension Unspec 296.80 Bipolar Disorder NOS Office Visit 09/23/2014 Pulmonology And Moe GILL. 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 790.5 Serum Enzyme Assoc,pc Silvino, N.P. Levels Abnormal Hospitalists Other Nonspec 790.5 Serum Enzyme Levels Abnormal Other Nonspec 786.51 Pain Precordial 786.51 Pain Precordial 824.8 FX Ankle Unspec Closed 296.50 Bipolar I Disorder Current Depressed NOS 296.50 Bipolar I Disorder Current Depressed NOS Office Visit 06/09/2009 10:00a [facility] Juan Carlos Barnes 278.01 Obesity Morbid Renee Lambert 780.79 Malaise And Fatigue Other Office Visit 10/09/2007 2:20p [facility] Juan Carlos Barnes 278.01 Obesity Morbid Renee Lambert 786.50 Pain Chest Unspec 302.72 Psychosexual Dysfunction W/ Inhibited Sexual Excitement 401.1 Hypertension Benign Office Visit 01/16/2007 2:40p [facility] Juan Carlos Barnes 420.91 Pericarditis Cardiology Renee Lambert Idiopathic Acute 401.1 Hypertension Benign 302.72 Psychosexual Dysfunction W/ Inhibited Sexual Excitement 278.01 Obesity Morbid Office Visit 01/31/2006 2:20p [facility] Juan Carlos Barnes 786.50 Pain Ira Lambert M.D. Unspec 401.1 Hypertension Benign 272.0 Hypercholesterolemia Pure Office Visit 01/05/2005 3:40p [facility] Juan Carlos Barnes 786.50 Pain Ira Lambert M.D. Unspec Office Visit 07/04/2004 3:00p [facility] Juan aCrlos Barnes 786.50 Pain Chest Renee Lambert Unspec 401.1 Hypertension Benign 272.0 Hypercholesterolemia Pure 278.01 Obesity Morbid Office Visit 02/24/2004 2:20p [facility] Juan Carlos Barnes 786.59 Pain Chest Renee Lambert Other 272.0 Hypercholesterolemia Pure 278.01 Obesity Morbid Office Visit 09/08/2003 11:30a [facility] Juan Carlos Barnes 786.59 Pain Chest Renee Lambert Other Office Visit 08/19/2003 3:40p [facility] Juan Carlos Barnes 786.59 Pain Chest Renee Lambert Other 414.01 Coronary Atherosclerosis [place] 401.1 Hypertension Benign 278.00 Obesity Unspec Office Visit 04/21/2003 3:20p [facility] Juan Carlos Barnes 786.59 Pain Ira Lambert M.D. Other 401.1 Hypertension Benign Plan of Treatment Future Appointment(s):10/31/2018 4:00 pm - Dexter Clancy M.D. at [facility]08/21/2018 - Dexter Clancy M.D.F31.9 Bipolar disorder, unspecifiedNew Medication:Carbidopa-Levodopa 25-100 mg - 1 pill in am , 1 pill at noon and 1/2 pill at dinner, take 30 min prior to mealsFollow up: Follow up in 8 weeks, ok to overbookRecommendations:1. Call me in 2 weeks and report how you are doing. Let me know if the hallucinations are worse.G20 Parkinson's disease
[2018-09-09] MEDS ORDERED: Morphine VIAL* 4 MG/ML VIAL (1 ml vial) IV ONE (07:08)
[2018-09-09 07:13] LABS: ABS Basophils 0 10^3/ul (0-0.2); ABS Eosinophils 0.1 10^3/ul (0-0.6); ABS Lymphocytes 2.2 10^3/ul (1.0-4.8); ABS Monocytes 0.5 10^3/ul (0-0.8); ABS Neutrophils 2.3 10^3/ul (1.5-7.7); ABS Nucleated RBC 0 10^3/ul; Eosinophil % 2.2 %; Hematocrit 44 % (42-52); Hemoglobin 15.3 g/dl (14.0-18.0); Lymphocyte % 42.2 %; Mean Corpuscular HGB Conc 35 g/dl (31-36); Mean Corpuscular Hemoglobin 32 pg (27-31); Mean Corpuscular Volume 92 fL (80-94); Mean Platelet Volume 7.3 fL (7.4-10.4); Nucleated Red Blood Cells % 0.1; Platelet Count 187 10^3/ul (150-450); Red Cell Distribution Width 14 % (10.5-15); White Blood Count 5.1 10^3/ul (3.5-10.8)
--- NOTE | 2018-09-09 07:14 | ED ---
Abdominal Pain/Male - HPI Summary HPI Summary: Patient is a 68-year-old male with history of Parkinson's who lives at [facility] presenting to the ED with an 8 week history of LLQ pain radiating to the left testicle. History of a left nephrectomy at 10 years old. Denies any urinary symptoms. Denies any constipation or diarrhea. Denies any nausea or vomiting. He has been seen in the ED and by his PCP for same symptoms. He states he had a CT obtained approximately 2 months ago which did not show anything. He states he has also been seen by his pain clinic, Dr. Marshall but pain medications has not improved his symptoms. Symptoms are worse or better with positioning, not worse or better with PO intake. Denies CP or SOB. Denies any urinary symptoms or hematuria. States he remains ambulating, eating and drinking well. Denies fevers, sweats or chills. - History of Current Complaint Chief Complaint: EDGeneral Stated Complaint: ABD PAIN Time Seen by Provider: 09/09/18 06:15 Hx Obtained From: Patient Onset/Duration: Sudden Onset Timing: Constant Severity Initially: Moderate Severity Currently: Moderate Pain Intensity: 10 Pain Scale Used: 0-10 Numeric Location: Discrete At: LLQ Radiates: Yes Radiates to: Other - L testicle Character: Sharp Aggravating Factor(s): Nothing Alleviating Factor(s): Nothing - O Associated Signs And Symptoms: Positive: Negative - Risk Factors Testicular Torsion: Negative Cardiac Risk Factors: Negative - Allergies/Home Medications Allergies/Adverse Reactions: Allergies Allergy/AdvReac Type Severity Reaction Status Date / Time haloperidol [From Haldol] Allergy Leg Cramps Verified 09/09/18 06:37 propoxyphene Allergy Unknown Verified 09/09/18 06:37 Reaction Details zolpidem [From Ambien] Allergy Unknown Verified 09/09/18 06:37 Reaction Details Home Medications: Home Medications Carbidopa/Levodop 25/100 MG(*) [Sinemet 25/100 TAB(*)] 0.5 tab PO 1700 09/09/18 [History Confirmed 09/09/18] PMH/Surg Hx/FS Hx/Imm Hx Previously Healthy: No - parkinson's - lives at Endocrine/Hematology History: Denies: Hx Anticoagulant Therapy, Hx Blood Disorders, Hx Blood Transfusions, Hx Bone Marrow Disease, Hx Diabetes, Hx Systemic Lupus Erythematosus, Hx Sickle Cell Disease, Hx Thyroid Disease, Hx Anemia, Hx Unexplained Bleeding, Other Endocrine/Hematological Disorders Cardiovascular History: Reports: Hx Coronary Artery Disease, Hx Hypercholesterolemia, Hx Hypertension, Other Cardiovascular Problems/Disorders - apparent venous insufficiency Denies: Hx Aneurysm, Hx Angina, Hx Angioplasty, Hx Auto Implanted Cardiovert Defib, Hx Cardiac Arrest, Hx Cardiomegaly, Hx Congenital Heart Disease, Hx Congestive Heart Failure, Hx Deep Vein Thrombosis, Hx Hypotension, Hx Myocardial Infarction, Hx Pacemaker/ICD, Hx Peripheral Vascular Disease, Hx Rheumatic Fever, Hx Syncope, Hx Valvular Heart Disease Respiratory History: Reports: Hx Asthma, Hx Seasonal Allergies, Hx Sleep Apnea Denies: Hx Chronic Bronchitis, Hx Chronic Obstructive Pulmonary Disease (COPD ), Hx Cystic Fibrosis, Hx Lung Cancer, Hx Pleural Effusion, Hx Pneumonia, Hx Pulmonary Edema, Hx Pulmonary Embolism, Other Respiratory Problems/Disorders GI History: Reports: Hx Gastroesophageal Reflux Disease, Hx Irritable Bowel, Other GI Disorders - Chronic constipation Denies: Hx Cirrhosis, Hx Crohn's Disease, Hx Diverticulosis, Hx Gall Bladder Disease, Hx Gastrointestinal Bleed, Hx Hiatal Hernia, Hx Jaundice, Hx Obstructive Bowel, Hx Ileostomy, Hx Pyloric Stenosis, Hx Ulcer History: Reports: Hx Acute Renal Failure - partial nephrectomy, Hx Benign Prostatic Hyperplasia, Hx Kidney Stones, Other Problems/Disorders - has only one functioning kidney Denies: Hx Chronic Renal Failure, Hx Dialysis, Hx Kidney Infection, Hx Renal Disease Musculoskeletal History: Reports: Hx Arthritis, Hx Back Problems - DJD, L-spine stenosis, Hx Tendonitis Denies: Hx Bursitis, Hx Congenital Bone Abnormalities, Hx Fibromyalgia, Hx Gout, Hx Orthopedic Injury, Hx Osteoporosis, Hx Scoliosis, Other Musculoskeletal History Sensory History: Reports: Hx Contacts or Glasses, Hx Vision Problem Denies: Hx Cataracts, Hx Eye Injury, Hx Eye Prosthesis, Hx Glaucoma, Hx Macular Degeneration, Hx Deafness, Hx Hearing Aid, Hx Hearing Problem, Other Sensory Impairments Opthamlomology History: Reports: Hx Contacts or Glasses, Hx Vision Problem Denies: Hx Cataracts, Hx Eye Injury, Hx Eye Prosthesis, Hx Glaucoma, Hx Macular Degeneration, Other Sensory Impairments Neurological History: Reports: Hx Dementia, Other Neuro Impairments/Disorders - Bipolar, Parkinsons Denies: Hx Developmental Delay, Hx Headaches, Hx Migraine, Hx Seizures, Hx Spinal Cord Injury, Hx Transient Ischemic Attacks (TIA) Psychiatric History: Reports: Hx Anxiety, Hx Depression, Hx Inpatient Treatment , Hx Community Mental Health Tx, Hx Bipolar Disorder Denies: Hx Attention Deficit Hyperactivity Disorder, Hx Eating Disorder, Hx Panic Disorder, Hx Post Traumatic Stress Disorder, Hx Schizophrenia, Hx Suicide Attempt, Hx of Violent Episodes Against Others, Hx Substance Abuse, Other Psychiatric Issues/Disorders - Cancer History Hx Chemotherapy: No Hx Radiation Therapy: No - Surgical History Surgery Procedure, Year, and Place: lt PARTIAL nephrectomy age 10 ruptured kidney sports related,. Nose surgery from being broken. heart cath at [facility] [place] 2003 Hx Anesthesia Reactions: No - Immunization History Date of Tetanus Vaccine: unknown Date of Influenza Vaccine: 2011 Infectious Disease History: No Infectious Disease History: Denies: Hx Clostridium Difficile, Hx Hepatitis, Hx Human Immunodeficiency Virus (HIV), Hx of Known/Suspected MRSA, Hx Shingles, Hx Tuberculosis, Hx Known/ Suspected VRE, Traveled Outside the [place] in Last 30 Days - Family History Known Family History: Positive: None, Cardiac Disease, Hypertension, Diabetes - Social History Occupation: Unemployed [facility]: [facility] Alcohol Use: None Hx Substance Use: No Substance Use Type: Reports: None Hx Tobacco Use: No Smoking Status (MU): Never Smoked Tobacco Have You Smoked in the Last Year: No Review of Systems Negative: Fever, Chills, Fatigue, Skin Diaphoresis Negative: Epistaxis, Dental Pain, Sore Throat Negative: Palpitations, Chest Pain Negative: Shortness Of Breath, Cough Positive: Abdominal Pain - LLQ pain. Negative: Vomiting, Diarrhea, Nausea Genitourinary: Negative Positive: no symptoms reported, other - pain to the L testicle Negative: Rash, Bruising Psychological: Normal All Other Systems Reviewed And Are Negative: Yes Physical Exam Triage Information Reviewed: Yes Vital Signs On Initial Exam: Initial Vitals Temp Pulse Resp BP Pulse Ox 98.0 F 76 24 160/97 99 09/09/18 06:17 09/09/18 06:17 09/09/18 06:17 09/09/18 06:17 09/09/18 06:17 Vital Signs Reviewed: Yes Appearance: Positive: Well-Appearing, Well-Nourished Skin: Positive: Pale Head/Face: Positive: Normal Head/Face Inspection Eyes: Positive: EOMI, NATA Neck: Positive: Supple Respiratory/Lung Sounds: Positive: Clear to Auscultation, Breath Sounds Present Cardiovascular: Positive: RRR, Pulses are Symmetrical in both Upper and Lower Extremities, Leg Edema Left - +2, Leg Edema Right - +2 Bowel Sounds: Positive: Present Male Genital Exam: Positive: No Hernia, Scrotum Tenderness (L), Testicular Tenderness (L) Musculoskeletal: Positive: Normal, Strength/ROM Intact Neurological: Positive: Sensory/Motor Intact, Alert, Oriented to Person Place, Time, Speech Normal Psychiatric: Positive: Normal, Affect/Mood Appropriate Diagnostics - Vital Signs Vital Signs Temp Pulse Resp BP Pulse Ox 09/09/18 06:22 77 99 09/09/18 06:18 160/97 09/09/18 06:17 98.0 F 76 24 160/97 99 - Laboratory Result Diagrams: 09/09/18 07:05 09/09/18 07:05 Lab Statement: Any lab studies that have been ordered have been reviewed, and results considered in the medical decision making process. Abdominal Pain Fem Course/Dx - Course Course Of Treatment: During the course treatment, the patient is given 4 mg IV morphine with good relief. Labs obtained. A CT abdomen and pelvis with oral and IV contrast. On physical examination, there is mild tenderness to the LLQ on palpation and tenderness to the left testicle on palpation. No erythema or masses noted to the L testicle Good BS throughout. VS stable. CT obtained: see above. Bilateral edema to the lower extremities. Patient not on anticoagulation medication. Denies pain to the bilateral lower extremities. Denies pain with urination. UA shows no infection. Discussed with patient need for good follow up with Dr. Astudillo for further evaluation. Patient OK with plan and discharge. - Diagnoses Differential Diagnosis/HQI/PQRI: Constipation, Diverticulitis, Ischemic Bowel, Renal Colic Provider Diagnoses: Left lower quadrant pain Discharge - Sign-Out/Discharge Documenting (check all that apply): Patient Departure Patient Received Moderate/Deep Sedation with Procedure: No - Discharge Plan Condition: Stable Disposition: HOME Referrals: Guille Astudillo MD [Primary Care Provider] - Additional Instructions: Please call your PCP today for a follow up As discussed, you may need to have this further worked up Possibly a colonoscopy if symptoms fail to improve. No evidence of UTI - Billing Disposition and Condition Condition: STABLE Disposition: Home
[2018-09-09 07:19] LABS: INR 0.92 (0.77-1.02)
[2018-09-09 07:31] LABS: ALT 13 U/L (7-52); AST 10 U/L (13-39); Albumin 4.3 g/dL (3.2-5.2); Albumin/Globulin Ratio 1.6 (1-3); Alkaline Phosphatase 59 U/L (34-104); Anion Gap 8 mmol/L (2-11); BUN/Creatinine Ratio 18.8 (8-20); Blood Urea Nitrogen 19 mg/dL (6-24); C Reactive Protein < 1.00 mg/L (<8.01); CO2 Carbon Dioxide 28 mmol/L (22-32); Calcium 9.9 mg/dL (8.6-10.3); Chloride 100 mmol/L (101-111); Creatine Kinase 65 U/L (10-223); EGFR African American 88.4 (>60); Globulin 2.7 g/dL (2-4); Glucose 100 mg/dL (70-100); Potassium 3.9 mmol/L (3.5-5.0); Sodium 136 mmol/L (135-145)
[2018-09-09] MEDS ORDERED: Morphine VIAL* 10 MG/ML 1 ML VIAL ONE (07:35)
[2018-09-09 07:55] LABS: Urine Appearance Clear; Urine Bilirubin Negative (Negative); Urine Blood Negative (Negative); Urine Color Yellow; Urine Glucose Negative (Negative); Urine Ketones Trace (Negative); Urine Nitrite Negative (Negative); Urine Protein Negative (Negative); Urine Specific Gravity 1.017 (1.010-1.030); Urine Urobilinogen Negative (Negative)
[2018-09-09] MEDS ORDERED: Iodixanol* (CONTRAST) 320 MG/ML 100 ML SDV IV ONE (09:18)
[2018-09-09 10:50] VITALS: BP 165/101
== END 2018-09-09 10:49 | disposition home or self-care (01) ==
LOC: ED 06:14
DX: R10.32 Left lower quadrant pain (principal); I25.10 Atherosclerotic heart disease of native coronary artery without angina pectoris; I10 Essential (primary) hypertension; N50.812 Left testicular pain; K21.9 Gastro-esophageal reflux disease without esophagitis
CPT/HCPCS: 36415; 74177; 80053; 81003; 82550; 83605; 83690; 83735; 83880; 84484; 85025; 85610; 86140; 96374; 99284; J2270; Q9967

== ENCOUNTER 2018-11-27 08:23 | Emergency (ER) | payer MEDICARE ==
--- NOTE | 2018-11-27 08:31 | ED ---
Skin Complaint - HPI Summary HPI Summary: A 68 y/o M brought in by ambulance presents to ED with c/o acute on chronic wound to R suprapubic abd with pain onset last night. Pt lives at a long[facility]term , and the nurse saw him at 0300 on this date and recommended he come to the ED for evaluation. Pt waited until this morning to be seen. Pain described as stinging. There is blood at the site, but the area is not actively bleeding. Pt denies fever, abd pain. - History of Current Complaint Stated Complaint: ABD WOUND PER EMS Hx Obtained From: Patient, EMS Onset/Duration: Still Present Timing: Constant Onset Severity: Moderate Current Severity: Severe Pain Intensity: 8 Pain Scale Used: 0-10 Numeric Skin Location: Abdomen - RLQ/R groin Character: Pain Aggravating Symptom(s): Touch Associated Signs & Symptoms: Negative - Additional Pertinent History Primary Care Physician: BRIANA - Allergy/Home Medications Allergies/Adverse Reactions: Allergies Allergy/AdvReac Type Severity Reaction Status Date / Time haloperidol [From Haldol] Allergy Leg Cramps Verified 09/09/18 06:37 propoxyphene Allergy Unknown Verified 09/09/18 06:37 Reaction Details zolpidem [From Ambien] Allergy Unknown Verified 09/09/18 06:37 Reaction Details PMH/Surg Hx/FS Hx/Imm Hx Previously Healthy: No Endocrine/Hematology History: Denies: Hx Anticoagulant Therapy, Hx Blood Disorders, Hx Blood Transfusions, Hx Bone Marrow Disease, Hx Diabetes, Hx Systemic Lupus Erythematosus, Hx Sickle Cell Disease, Hx Thyroid Disease, Hx Anemia, Hx Unexplained Bleeding, Other Endocrine/Hematological Disorders Cardiovascular History: Reports: Hx Coronary Artery Disease, Hx Hypercholesterolemia, Hx Hypertension, Other Cardiovascular Problems/Disorders - apparent venous insufficiency Denies: Hx Aneurysm, Hx Angina, Hx Angioplasty, Hx Auto Implanted Cardiovert Defib, Hx Cardiac Arrest, Hx Cardiomegaly, Hx Congenital Heart Disease, Hx Congestive Heart Failure, Hx Deep Vein Thrombosis, Hx Hypotension, Hx Myocardial Infarction, Hx Pacemaker/ICD, Hx Peripheral Vascular Disease, Hx Rheumatic Fever, Hx Syncope, Hx Valvular Heart Disease Respiratory History: Reports: Hx Asthma, Hx Seasonal Allergies, Hx Sleep Apnea Denies: Hx Chronic Bronchitis, Hx Chronic Obstructive Pulmonary Disease (COPD ), Hx Cystic Fibrosis, Hx Lung Cancer, Hx Pleural Effusion, Hx Pneumonia, Hx Pulmonary Edema, Hx Pulmonary Embolism, Other Respiratory Problems/Disorders GI History: Reports: Hx Gastroesophageal Reflux Disease, Hx Irritable Bowel, Other GI Disorders - Chronic constipation Denies: Hx Cirrhosis, Hx Crohn's Disease, Hx Diverticulosis, Hx Gall Bladder Disease, Hx Gastrointestinal Bleed, Hx Hiatal Hernia, Hx Jaundice, Hx Obstructive Bowel, Hx Ileostomy, Hx Pyloric Stenosis, Hx Ulcer History: Reports: Hx Acute Renal Failure - partial nephrectomy, Hx Benign Prostatic Hyperplasia, Hx Kidney Stones, Other Problems/Disorders - has only one functioning kidney Denies: Hx Chronic Renal Failure, Hx Dialysis, Hx Kidney Infection, Hx Renal Disease Musculoskeletal History: Reports: Hx Arthritis, Hx Back Problems - DJD, L-spine stenosis, Hx Tendonitis Denies: Hx Bursitis, Hx Congenital Bone Abnormalities, Hx Fibromyalgia, Hx Gout, Hx Orthopedic Injury, Hx Osteoporosis, Hx Scoliosis, Other Musculoskeletal History Sensory History: Reports: Hx Contacts or Glasses, Hx Vision Problem Denies: Hx Cataracts, Hx Eye Injury, Hx Eye Prosthesis, Hx Glaucoma, Hx Macular Degeneration, Hx Deafness, Hx Hearing Aid, Hx Hearing Problem, Other Sensory Impairments Opthamlomology History: Reports: Hx Contacts or Glasses, Hx Vision Problem Denies: Hx Cataracts, Hx Eye Injury, Hx Eye Prosthesis, Hx Glaucoma, Hx Macular Degeneration, Other Sensory Impairments Neurological History: Reports: Hx Dementia, Other Neuro Impairments/Disorders - Bipolar, Parkinsons Denies: Hx Developmental Delay, Hx Headaches, Hx Migraine, Hx Seizures, Hx Spinal Cord Injury, Hx Transient Ischemic Attacks (TIA) Psychiatric History: Reports: Hx Anxiety, Hx Depression, Hx Inpatient Treatment , Hx Community Mental Health Tx, Hx Bipolar Disorder Denies: Hx Attention Deficit Hyperactivity Disorder, Hx Eating Disorder, Hx Panic Disorder, Hx Post Traumatic Stress Disorder, Hx Schizophrenia, Hx Suicide Attempt, Hx of Violent Episodes Against Others, Hx Substance Abuse, Other Psychiatric Issues/Disorders - Cancer History Hx Chemotherapy: No Hx Radiation Therapy: No - Surgical History Surgery Procedure, Year, and Place: lt PARTIAL nephrectomy age 10 ruptured kidney sports related,. Nose surgery from being broken. heart cath at [facility] [place] 2003 Hx Anesthesia Reactions: No - Immunization History Date of Tetanus Vaccine: unknown Date of Influenza Vaccine: 2011 Infectious Disease History: Denies: Hx Clostridium Difficile, Hx Hepatitis, Hx Human Immunodeficiency Virus (HIV), Hx of Known/Suspected MRSA, Hx Shingles, Hx Tuberculosis, Hx Known/ Suspected VRE - Family History Known Family History: Positive: Cardiac Disease, Hypertension, Diabetes - Social History Occupation: Disabled [facility]: [facility] Alcohol Use: None Hx Substance Use: No Substance Use Type: Reports: None Hx Tobacco Use: No Smoking Status (MU): Never Smoked Tobacco Have You Smoked in the Last Year: No Review of Systems Negative: Fever Negative: Abdominal Pain Skin: Other - pos: wound to RLQ/R groin All Other Systems Reviewed And Are Negative: Yes Physical Exam - Summary Physical Exam Summary: VITAL SIGNS: Reviewed. GENERAL: Patient is a well-developed and nourished MALE who is lying comfortable in the stretcher. Patient is not in any acute respiratory distress. HEAD AND FACE: No signs of trauma. No ecchymosis, hematomas or skull depressions. No sinus tenderness. EYES: PERRLA, EOMI x 2, No injected conjunctiva, no nystagmus. EARS: Hearing grossly intact. Ear canals and tympanic membranes are within normal limits. MOUTH: Oropharynx within normal limits. NECK: Supple, trachea is midline, no adenopathy, no JVD, no carotid bruit, no c- spine tenderness, neck with full ROM. CHEST: Symmetric, no tenderness at palpation LUNGS: Clear to auscultation bilaterally. No wheezing or crackles. CVS: Regular rate and rhythm, S1 and S2 present, no murmurs or gallops appreciated. ABDOMEN: Soft, non-tender. No signs of distention. No rebound, no guarding, and no masses palpated. Bowel sounds are normal. EXTREMITIES: FROM in all major joints, no edema, no cyanosis or clubbing. NEURO: Alert and oriented x 3. No acute neurological deficits. Speech is normal and follows commands. SKIN: Dry and warm. There is a chronic superficial wound in RLQ / R pelvic area , which has a small amount of bleeding, which has stopped. There is no tracking , no signs of infection, and no purulent discharge. Triage Information Reviewed: Yes Vital Signs Reviewed: Yes Course/Dx - Course Assessment/Plan: Patient is a 68-year-old male who presents to the emergency department with a chief complaint of having a chronic wound in the right lower quadrant. The wound is not toxic, there is no purulent discharge, has a small amount of bleeding. There is no signs of infection. Therefore the wound was cleaned and bacitracin applied, the wound was dressed. He will be discharged home with follow-up with PCP. Patient does not have any fever, has no abdominal pain, and denies any other symptom; therefore, the patient will be transferred back to the long-term. - Diagnoses Provider Diagnoses: Visit for wound check Discharge - Sign-Out/Discharge Documenting (check all that apply): Patient Departure - DC Patient Received Moderate/Deep Sedation with Procedure: No - Discharge Plan Condition: Stable Disposition: HOME Patient Education Materials: Chronic Wound Care (ED) Referrals: Guille Astudillo MD [Primary Care Provider] - 3 Days Additional Instructions: FOLLOW UP WITH YOUR PRIMARY CARE PROVIDER WITHIN ONE WEEK FOR HIGH BLOOD PRESSURE NOTED TODAY. FOLLOW UP WITH YOUR PRIMARY CARE PROVIDER WITHIN 3 DAYS. RETURN TO THE ED FOR ANY WORSENING OR NEW SYMPTOMS. - Billing Disposition and Condition Condition: STABLE Disposition: Home - Attestation Statements Document Initiated by Joaquin: Yes Documenting Scribe: Skylar Byrne Provider For Whom Joaquin is Documenting (Include Credential): Dr. Grabiel Hare MD Scribe Attestation: Skylar Smith scribed for Dr. Grabiel Hare MD on 11/28/18 at 0717. Scribe Documentation Reviewed: Yes Provider Attestation: The documentation as recorded by the Skylar cano accurately reflects the service I personally performed and the decisions made by , Dr. Grabiel Hare MD Status of Scribe Document: Viewed
[2018-11-27 08:32] VITALS: BP 157/98
[2018-11-27] MEDS ORDERED: Bacitracin OINTMENT* 0.5% 0.5 oz TUBE TOPICAL ONE (08:37)
--- OUTSIDE RECORDS SUMMARY | 2018-11-27 08:50 | XMS REPORT | Continuity of Care Document ---
:1950 External Reference #:[id number] Author Name Aria Mijares Care Team Providers Name Role Phone Guille Astudillo MD Primary Care Physician Unavailable Payers Date Identification Numbers Payment Provider Subscriber Policy Number: [id number] Medicare Sachin Cedeno PayID: [id number] [address] [place] [address] Effective: 2014 Policy Number: [id number] Medicaid Sachin Cedeno Group Name: 1 1 [address] PayID: [id number] [place] [address] Advance Directives Description No Information Available Problems Active Problems Provider Date Hypersomnia with sleep apnea Moe Nelson M.D. Onset: 09/23/2014 Sprain of sacroiliac ligament Cayetano Nicole M.D. Onset: 05/13/2015 Sciatica Cayetano Nicole M.D. Onset: 05/13/2015 Secondary parkinsonism Flakita Best MD Onset: 09/13/2015 Skin sensation disturbance Flakita Best MD Onset: 09/13/2015 Abnormal gait Flakita Best MD Onset: 09/13/2015 Urinary incontinence Flakita Best MD Onset: 09/27/2015 Spinal stenosis of lumbar region Teddy Diaz M.D. Onset: 11/07/2015 Disturbance in sleep behavior Salma Guthrie MD Onset: 10/02/2016 Obstructive sleep apnea syndrome Salma Guthrie MD Onset: 10/02/2016 Morbid obesity Salma Guthrie MD Onset: 10/02/2016 Nervous system symptoms Flakita Best MD Onset: 06/18/2017 Abnormal involuntary movement Flakita Best MD Onset: 06/18/2017 Parkinson's disease Flakita Best MD Onset: 01/08/2018 Bipolar disorder Dexetr Clancy M.D. Onset: 05/05/2018 Localized superficial swelling of skin Reagan Espinoza M.D. Onset: 2018 Body mass index 40+ - severely obese Reagan Espinoza M.D. 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 Hand Dominance Left-handed Tobacco Use Start: Unknown Never Smoked Cigarettes Smoking Status Reviewed: 11/17/18 Never Smoked Cigarettes ETOH Use Denies alcohol use Recreational Drug Use Former Drug User Tobacco Use Start: Unknown Patient has never smoked Exercise Type/Frequency Exercises rarely Allergies, Adverse Reactions, Alerts Active Allergies Reaction Severity Comments Date Darvocet Urticaria 03/30/2014 Haldol 05/13/2015 Ambien 05/13/2015 Medications Active Medications SIG Qnty Indications Ordering Provider Date Melatonin 1 cap at 90caps G20 Dexter Clancy, 11/17/2018 5mg Capsules bedtime M.D. Nuplazid Take one 30caps Jaylan Dawson, 09/01/2018 34mg Capsules tablet Daily N.P. Carbidopa-Levodopa 1 pill in am, 75tabs F31.9 Dexter Clancy, 08/21/2018 25-100mg 1 pill at noon M.D. Tablets and 1/2 pill at dinner, take 30 min prior to meals Senna-Docusate Sodium 2 tablets by 30tabs Art Jameson 12/16/2015 8.6-50mg mouth once Renee Mcmillan Tablets daily Guaifenesin as needed for Unknown cough Nortriptyline HCL take two tabs Carrera, 10mg Capsules at hs daily VINITA Olivares Gabapentin 3 capsules by Unknown 100mg Capsules mouth 3 times a day Pyridium one by mouth Unknown 100mg Tablets three times a day as Needed [place] one tab by Unknown 5-325mg Tablets mouth every 4-6 hours as needed pain Quetiapine Fumarate 1 by mouth at Unknown 200mg bedtime.. Tablets Myrbetriq 1 by mouth Unknown 50mg Tablets ER 24HR every day Hydrochlorothiazide 1 by mouth Unknown 12.5mg every day Tablets Meloxicam take one tab Unknown 7.5mg Tablets twice daily as needed for pain, avoid other nsaids Lorazepam 1 tablet every 30tabs Unknown 0.5mg Tablets morning Naproxen 1 tablet by Unknown 220mg Tablets mouth q8 hours as needed Tums 2 chew tabs po Unknown 500mg every 12 hours as needed Imodium A-D 1 capsule Unknown 2mg Capsules after each loose bm Miralax 17 gm every Unknown 3350NF Powder day mixed w/ 8 oz water/juice Depakote ER 2 by mouth Unknown 500mg Tablets ER every night at 24HR bedtime Amantadine HCL 1 tablet by 60tabs Dexter Clancy, 100mg Tablets mouth every M.D. morning and at noon Trazodone HCL 1 tablet at Unknown 150mg bedtime Acetaminophen Extra 2 tablets Unknown Strength every 8hrs prn Vitamin D2 1 tablet once Unknown 50,000Iu a month Ranitidine HCL 1 tablet daily Unknown 150mg at bedtime Potassium Chloride ER 1 tablet twice Unknown 20Meq a day Ventolin HFA 2 puffs by Unknown 108(90Base) mouth four mcg/Act Aerosol times a day as needed Ascorbic Acid 1 by mouth Unknown 250mg Tablets every day Lisinopril 1 by mouth Unknown 30mg Tablets every day History Medications Carbidopa-Levodopa 1 tab three 90tabs F31.9 Dexter Clancy, 06/18/2017 - 25-100mg times per day M.D. 08/21/2018 Tablets Mobic once daily 30tabs Cayetano Nicole, 05/13/2015 - 7.5mg Tablets with food as M.D. 05/08/2016 needed Neurontin 1 by mouth 30caps Cayetano Nicole 05/13/2015 - 300mg Capsules every night MAllyn 02/13/2017 at bedtime Aspir-81 1 by mouth Dylan Liriano, 03/30/2014 - 81mg Tablets DR every day sandin Renee 09/12/2015 Celexa 1 PO qd 90tabs Juan Carlos Barnes 10/09/2007 - 60mg Tablets Renee Lambert 03/30/2014 Lamictal 1 PO qd Juan Carlos Barnes 10/09/2007 - 300mg Tablets Renee Lambert 03/30/2014 Seroquel in am and 60tabs Juan Carlos Barnes 10/09/2007 - 25mg Tablets noon Renee Lambert 03/30/2014 50 mg at hs Ranitidine HCL 1 To 2 qd Juan Carlos Barnes 01/16/2007 - 150mg Capsules Renee Lambert 03/30/2014 Finasteride 1 PO qhs Juan Carlos Barnes 01/16/2007 - 5mg Tablets Renee Lambert 10/09/2007 Ativan 1/2 tab in am Juan Carlos Barnes 01/16/2007 - 1mg Tablets and scottieon Renee Lambert 03/30/2014 2 mg at hs Rozerem q Juan Carlos Barnes 01/16/2007 - 16mg Tablets Renee Lambert 03/30/2014 Lamictal 1 PO qd Juan Carlos Barnes 01/16/2007 - 200mg Tablets Renee Lambert 10/09/2007 Trazodone HCL 1 PO qhs Juan Carlos Barnes 01/16/2007 - 450mg Tablets Renee Lambert 03/30/2014 Aricept One QHS 30tachristine Barnes 01/16/2007 - 5mg Tablets Renee Lambert 03/30/2014 Ambien CR 1 Tablet PO Q Juan Carlos Barnes 01/16/2007 - 12.5mg Tablets ER hs prn Renee Lambert 03/30/2014 Lexapro 1 PO qd Juan Carlos Barnes 01/16/2007 - 30mg Tablets Renee Lambert 10/09/2007 Atenolol 1/2 po qd 30tabs Juan Carlos Barnes 01/31/2006 - 25mg Tablets until 02/01/07 Renee Lambert 10/09/2007 and the 1/2 tablet po qod until 02/14/07 and then discontinue. Ativan one qd prn 30tabs Juan Carlos Barnes 01/30/2006 - 1mg Tablets Renee Lambert 01/16/2007 Risperdal Consta one q 2 weeks Juan Carlos Barnes 01/30/2006 - 25mg Injection Renee Lambert 01/16/2007 Colace 1 po qd Juan Carlos Barnes 01/30/2006 - 100mg Capsules Renee Lambert 01/16/2007 Nexium 1 PO qd 30caps Juan Carlos Barnes 01/30/2006 - 40mg Capsules Renee Lambert 01/16/2007 Trazodone one daily 30tabs Juan Carlos Barnes 01/30/2006 - 200mg Tablets Renee Lambert 01/16/2007 Depakote 1 po qd Juan Carlos Barnes 01/30/2006 - 1500 Tablets Renee Lambert 01/16/2007 Thorazine 0ne qd Juan Carlos FDelonte 01/30/2006 - 100mg Tablets Renee Lambert 01/16/2007 Depakote er 6 qhs Juan Carlos Barnes 01/05/2005 - 500mg Tablets Renee Lambert 01/31/2006 Neurontin 1 po bid 90caps Juan Carlos Barnes 01/05/2005 - 300mg Capsules Renee Lambert 01/31/2006 Remeron one po q hs 30tabs Juan Carlos Barnes 01/05/2005 - 15mg Tablets Renee Lambert 01/31/2006 Klonopin 2mg qhs Juan Carlos FDelonte 01/05/2005 - 2mg Tablets Renee Lambert 01/31/2006 Naproxen 1 po bid Juan Carlos FDelonte 01/05/2005 - 500mg Tablets Renee Lambert 01/31/2006 Klonopin 2mg qhs prn Juan Carlos Barnes 01/05/2005 - 2mg Tablets Renee Lambert 01/31/2006 Diclofenac Sodium 1 po tid prn Juan Carlos Barnes 01/05/2005 - 50mg Tablets Renee Lambert 01/16/2007 [place]wood 1 po am Juan Carlos Barnes 07/04/2004 - 300mg Capsules Renee Lambert 01/05/2005 Depakote 3 tabs qhs Juan Carlos Barnes 07/04/2004 - 500mg Tablets Renee Lambert 01/05/2005 Nitrostat one sl q5min 25tabs Juan Carlos Barnes 05/26/2004 - 0.4mg Tablets up to 3 doses Renee Lambert 01/31/2006 prn Lipitor 1 po qd 30tabs Juan Carlos Barnes 02/24/2004 - 80mg Tablets Renee Lambert 01/16/2007 Protonix qd Juan Carlos Delonte 02/23/2004 - 40mg Tablets Renee Lambert 01/31/2006 Colace 1 po bid 30caps Juan Carlos Barnes 02/23/2004 - 100mg Capsules Renee Lambert 01/31/2006 Seroquel qd Juan Carlos Delonte 02/23/2004 - 900mg Tablets Renee Lambert 01/31/2006 Nitrostat one sl q5min 100tabs Juan Carlos Delonte 08/24/2003 - 0.3mg Tablets up to 3 doses Renee Lambert 05/26/2004 prn Nitro-Dur 1 to chest 30units Juan Carlos Delonte 08/19/2003 - 0.2mg/Hour Patches wall qam off Renee Lambert 08/24/2003 qpm [place] 1 po qam, 1 30caps Juan Carlos Barnes 08/19/2003 - 600mg Capsules po qhs Renee Lambert 07/04/2004 Flurazepam qhs Juan Carlos Delonte 08/19/2003 - 30mg Capsules Renee Lambert 02/24/2004 Vitram q6h prn pain Juan Carlos Delonte 08/19/2003 - 50mg Tablets Renee Lambert 02/24/2004 Aspirin Enteric Coated qd Juan Carlos Delonte 08/19/2003 - 81mg Renee Lambert 09/12/2015 Tablets Klor-Con M10 qd 360tabs Juan Carlos Barnes 08/19/2003 - 10Meq Tablets Renee Lambert 09/26/2004 leschol 1 po qd Juan Carlos Barnes 08/19/2003 - 80mg Tablets Renee Lambert 02/24/2004 Clonazepam 1 po qam, 2 30tabs Juan Carlos Barnes 08/19/2003 - 1mg Tablets hs Renee Lambert 01/05/2005 Seroquel qhs Juan Carlos Barnes 08/19/2003 - 700mg Tablets Renee Lambert 02/24/2004 Seroquel 1 po qam Juan Carlos Barnes 08/19/2003 - 200mg Tablets Renee Lambert 02/24/2004 Tegretol 1 po bid 30tabs Juan Carlos Barnes 08/19/2003 - 500mg Tablets Renee Lambert 01/31/2006 Lescol one q 90caps Juan Carlos Barnes 04/20/2003 - 20mg Capsules Renee Lambert 08/19/2003 Klonopin tid 90tabs Juan Carlos Barnes 04/20/2003 - 1mg Tablets Renee Lambert 08/19/2003 Seroquel qeve 90tabs Juan Carlos Barnes 04/20/2003 - 600mg Tablets Renee Lambert 08/19/2003 Seroquel qam 90tabs Juan Carlos Barnes 04/20/2003 - 100mg Tablets Renee Lambert 08/19/2003 Lasix 1 po qd 30tabs Juan Carlos Barnes 04/20/2003 - 20mg Tablets Renee Lambert 01/31/2006 Atenolol 1 po qd 90tabs Juan Carlos Barnes 04/20/2003 - 50mg Tablets Renee Lambert 01/31/2006 Tegretol qpm 90tabs Juan Carlos Barnes 04/20/2003 - 500mg Tablets Renee Lambert 08/19/2003 Tegretol qam 90tabs Juan Carlos Barnes 04/20/2003 - 400mg Tablets Renee Lambert 08/19/2003 Multivitamin Adult one by mouth Unknown - Tablets every day 12/15/2015 Miralax 17 gm every Unknown - 3350NF Packet day 05/10/2016 Cogentin 1 by mouth Unknown - 0.5mg Tablet twice a day 05/10/2016 Colace 1 by mouth Unknown - 100mg Capsules twice a day 12/15/2015 Oxybutynin Chloride ER 1 tablet Unknown - 5mg daily 05/08/2016 Calcium Antacid 2 tablets Unknown - every 12hrs 02/13/2017 prn Lactulose 30ml daily Unknown - prn 05/10/2016 Neurontin 1 tablet Unknown - 300MFG daily 02/13/2017 Oxycodone-Acetaminophen 1 tablet at Unknown - 7.5/325 bedtime prn 05/10/2016 Meloxicam take 1 tab by Unknown - 7.5mg Tablets mouth qdaily 02/13/2017 with food Lorazepam 1 po qhs Unknown - 0.5mg Tablets 02/13/2017 Vesicare 1 tablet po Augustin Andino, - 5mg Tablets daily MD 07/31/2018 Microzide 1 tab daily Unknown - 12.5mg Capsules w/lisinopril 07/31/2018 Polyethylene Glycol every day Unknown - Powder with a large 06/18/2017 glass of water Divalproex Sodium take one Unknown - 500mg Tablets tablet by 06/18/2017 DR sarina twice a day 17GM as needed Unknown - 3350NF Packet 05/04/2018 Melatonin ER 1 by mouth Unknown - 5mg Tablets ER every night 07/31/2018 at bedtime Cyclobenzaprine HCL 1 tablet by Unknown - 10mg mouth in the 07/31/2018 Tablets evening as needed muscle spasms Acetaminophen as Needed Unknown - 500mg Tablets 01/07/2018 Seroquel at at bedtime Unknown - 300mg Tablets 09/12/2015 Seroquel 1 by mouth 30tabs Unknown - 200mg Tablets every night 07/31/2018 at bedtime Divalproex Sodium ER 2 PO QHS Unknown - 500mg 12/15/2015 Tablets ER 24HR Tamsulosin HCL 1 by mouth Thu Augustin, - 0.4mg Capsules every day 07/31/2018 Donepezil HCL Tamie Russo MD - 10mg Tablets 09/12/2015 Voltaren Unknown - 1% Gel 09/12/2015 Docqlace Unknown - 100mg Capsules 09/12/2015 Cyclobenzaprine HCL Guille Astudillo, - 10mg MD 09/12/2015 Tablets Diphenhydramine HCL Unknown - 25mg 09/12/2015 Capsules Hydrocodone-Ibuprofen Unknown - 7.5-200mg 09/12/2015 Tablets [place] Carbonate Unknown - 300mg 09/12/2015 Capsules Oxycodone-Acetaminophen Alicia Govea, - 5-325mg MD 09/12/2015 Tablets Lorazepam Unknown - 0.5mg Tablets 09/12/2015 Proair HFA Unknown - 108(90Base) mcg/Act 05/10/2016 Aerosol Vesicare Unknown - 5mg Tablets 09/12/2015 Ibuprofen 1 by mouth Unknown - 600mg Tablets three times a 05/10/2016 day as needed Metaxalone 1 tablet by Unknown - 400mg Tablets nouth two 02/13/2017 times daily Tramadol HCL 2 tablets Unknown - 50mg Tablets every 8 hours 05/10/2016 as needed for pain Furosemide 2 by mouth Unknown - 20mg Tablets every 05/10/2016 morning, 3 tablets in evening Immunizations Description No Information Available Vital Signs Date Vital Result Comment 11/17/2018 10:47am Height 67 inches 5'7" Weight 257.00 lb Heart Rate 82 /min BP Systolic 130 mmHg BP Diastolic 72 mmHg BMI (Body Mass Index) 40.2 kg/m2 10/29/2018 10:18am Height 67 inches 5'7" Weight 257.00 lb Heart Rate 92 /min BP Systolic Sitting 110 mmHg BP Diastolic Sitting 74 mmHg Respiratory Rate 16 /min BMI (Body Mass Index) 40.2 kg/m2 08/21/2018 1:27pm Height 67 inches 5'7" Weight [...] Result H/L Range Note Laboratory test 09/26/2015 [facility] TSH 0.23 ?IU/mL Low 0.34 -5.60 1, [address] ([place] [address] Stim Horm) [phone] Free T4 (Free Thyroxine) 0.95 ng/dL N 0.61-1.12 3 Vitamin B12 340 pg/mL N 180-914 4 Folic Acid (Folate) > 20.00 ng/mL N >3.99 5 Methylmalonic Acid Mma 0.21 nmol/mL N <=0.40 6 Dulce (Antinuclear Antibodies) Negative N Negative 7 Erythrocyte Sed Rate 3 mm/Hr N 0-40 8 C Reactive Protein < 1.00 mg/L N < 5.00 9 Protein 09/26/2015 [facility] Total 7.1 g/dL N 6.3 - Electrophoresis [address] Protein(Pep) 7.9 [place] [address] [phone] Albumin 3.7 g/dL N 3.4-4.7 Alpha-1 Globulin 0.3 g/dL N 0.1-0.3 Alpha-2 Globulin 0.9 g/dL N 0.6-1.0 Beta Globulin 0.9 g/dL N 0.7-1.2 Gamma Globulin 1.3 g/dL N 0.6-1.6 Albumin/Globulin Ratio 1.06 N Impression See Comment N 10 Laboratory test 09/26/2015 [facility] Hemoglobin A1c 5.8 % N Less than [address] (Glyco HGB) 6.0 [place] [address] [phone] Laboratory test 10/15/2007 [facility] D Dimer < 200 < 230 [address] Quantitative NG/[place] [address] [phone] BNP Evaluatr < 7.5 pg/mL Low 7.5-100 CPK (Creatine Kinase) 211 U/L High 0-200 C Reactive Protein < 0.5 mg/dL Less Than 0.5 Comp Metabolic Panel 10/15/2007 [facility] One Over Creatinine 0.[address] [place] [address] [phone] Anion Gap 6.0 mmol/L 2-11 13 Albumin/Globulin Ratio 1.6 1-3 Albumin 4.2 GM/DL [...] Ratio 11.8 8-20 Creatinine 1.1 mg/dL 0.5-1.4 Lipid Profile 10/15/2007 [facility] Cholesterol/HDL 4.40 1- 4.97 (Trig/Chol/HDL) [address] [place] [address] [phone] Cholesterol 207 mg/dL High Less Than 200 14 Triglyceride 103 mg/dL 40-200 High Density Lipoprotein 47 mg/dL 40-60 Low Density Lipoprotein 139 mg/dL High Less Than 100 15 CBC With Manual 10/15/2007 [facility] White Blood 5.2 CUMM 4.8-10.[address] [place] [address] [phone] Absolute Neutrophil Count 2.9 Atypical Lymph 4 [...] 4.6-6.2 Redcell Distribution WDTH 13 % 10.5-15 Laboratory test 10/15/2007 [facility] Erythrocyte Sed 1 MM/HR 0-[address] [place] [address] [phone] 1 similar to TSH in 2006, free T4 normal 2 with immunofixation Copy Result to: GUILLE ASTUDILLO ([id number]) 3 with immunofixation Copy Result to: GUILLE ASTUDILLO ([id number]) 4 Normal Range 180 to 914 Indeterminate Range 145 to 180 Deficient Range <145 5 with immunofixation Copy Result to: GUILLE ASTUDILLO ([id number]) 6 Test Performed by: [place] [id number] Certified Pharmacist Assistant: Nathan Ruffin II, M.D., Ph.D. 7 with immunofixation Copy Result to: GUILLE ASTUDILLO ([id number]) 8 with immunofixation Copy Result to: GUILLE ASTUDILLO ([id number]) 9 Acute inflammation: >10.00 10 RESULT: No apparent monoclonal protein on serum electrophoresis. Test Performed by: [place] [id number] Certified Pharmacist Assistant: Nathan Ruffin II, M.D., Ph.D. 11 Therapeutic target for the treatment of diabetes Mellitus patients is <7% HBA1C, and in selective patients <6.0%.Please refer to [place] [employer] Diabetic care guidelines for further information. 12 Please note: The following may produce a false positive D Dimer test: - Rheumatoid factor greater than 60 IU/ml - Plasma hemoglobin greater than 0.05 gm/dl - Bilirubin greater than 50 mg/dl - Lipids greater than 1000 mg/dl - FDP greater than 20 ug/ml . 13 Anion gap measurement may be of limited value in the presence of any alkalosis, especially in a combined acid base disorder. . 14 Classification: Borderline High . 15 CALCULATED LDL APPROXIMATES THE VALUE OF A DIRECT LDL MEASUREMENT. Classification: Borderline High . Procedures Date Code Description Status 03/14/2017 18562 ECHO Transthoracic, Real-Time 2D With Doppler And Color Completed Flow 02/14/2017 03548 EKG Tracing & Interpretation Completed 10/31/2016 61341 Polysomnography Sleep Staging 4+ Parameters W/Cpap Completed 03/28/2016 19720 ECHO Transthoracic, Real-Time 2D With Doppler And Color Completed Flow 03/07/2016 32890 Treadmill Interp/Report Only Completed 03/07/2016 16213 Stress Test Supervsn W/Out I/R Completed 12/30/2015 72901 Treadmill Interp/Report Only Completed 12/30/2015 65122 Stress Test Supervsn W/Out I/R Completed 12/16/2015 51652 EKG Tracing & Interpretation Completed 10/10/2015 55377 EKG, Interpretation Only Completed 10/03/2015 24084 EKG, Interpretation Only Completed 12/30/2014 21662 ECHO Transthorasic Realtime 2D W Doppler & Color Flow Hosp Completed 07/08/2012 03541 EKG, Interpretation Only Completed 07/06/2012 46336 EKG, Interpretation Only Completed 06/09/2009 98190 EKG Tracing & Interpretation Completed 10/22/2007 02419 ECHO/Stress Completed 10/22/2007 42058 ECHO/Stress Completed 10/22/2007 86641 Stress Test Completed 10/09/2007 85393 EKG Tracing & Interpretation Completed 01/16/2007 31134 EKG Tracing & Interpretation Completed 01/16/2007 47408 EKG Tracing & Interpretation Completed 03/12/2006 12403 Color Doppler Completed 03/12/2006 65882 Pulse Doppler & Continuous Wave Completed 03/12/2006 45891 Echocardiogram Completed 03/12/2006 55128 Echocardiogram Completed 01/31/2006 21344 EKG Tracing & Interpretation Completed 01/05/2005 58171 EKG Tracing & Interpretation Completed 07/04/2004 46873 EKG Tracing & Interpretation Completed 06/14/2004 42187 EKG, Interpretation Only Completed 02/24/2004 84494 EKG Tracing & Interpretation Completed 09/08/2003 29067 Intro. Needle Or Intracath.,Vein Completed 09/08/2003 58797 IV Infusion For DX/Upt To 1 HR. Completed 09/08/2003 41224 Stress Test Completed 09/08/2003 68590 ECHO/Stress Completed 08/19/2003 65634 ECHO/Stress Completed 08/19/2003 05795 Stress Test Completed 05/09/2003 26245 EKG, Interpretation Only Completed 05/08/2003 38602 EKG, Interpretation Only Completed 05/03/2003 44037 EKG, Interpretation Only Completed 04/21/2003 29996 EKG Tracing & Interpretation Completed 04/09/2003 52076 EKG, Interpretation Only Completed Encounters Type Date Location Provider Dx Diagnosis Office Visit 10/29/2018 [facility] Reagan Espinoza, R22.43 Localized 10:30a [facility] Renee swelling, mass and lump, lower limb, bilateral Z68.41 Body mass index (BMI) 40.0-44.9, adult Office Visit 08/21/2018 [place] Dexter Clancy, F31.9 Bipolar disorder, 1:30p Neurologic M.D. unspecified [facility] G20 Parkinson's disease Office Visit 05/05/2018 Mao Clancy, R25.1 Tremor, 9:30a Neurologic M.D. unspecified [facility] F31.9 Bipolar disorder, unspecified Office Visit 02/27/2018 1:00p Wound Care Teddy Barnes S81.801D Unspecified open Center [facility] Renee Anne wound, right lower leg, subs encntr I89.0 Lymphedema, not elsewhere classified I10 Essential (primary) hypertension Office Visit 02/20/2018 1:00p Wound Care Teddy Barnes S81.801A Unspecified open Center AT [facility] Renee Anne wound, right lower leg, initial encounter I89.0 Lymphedema, not elsewhere classified I10 Essential (primary) hypertension Office Visit 01/08/2018 Neurohospitalist Flakita Best, G20 Parkinson's 2:30p Clinic MD disease Office Visit 06/18/2017 Neurohospitalist Flakita Best, R29.6 Repeated falls 2:00p Clinic R25.1 Tremor, unspecified Office Visit 02/14/2017 Archana Jameson G47.33 Obstructive sleep 2:00p Cardiology Of Renee Mcmillan apnea (adult) [facility] (pediatric) E66.01 Morbid (severe) obesity due to excess calories E78.5 Hyperlipidemia, unspecified I71.9 Aortic aneurysm of unspecified site, without rupture I10 Essential (primary) hypertension Z68.41 Body mass index (BMI) 40.0-44.9, adult Office Visit 10/02/2016 1:00p Pulmonology And Salma G47.9 Sleep disorder, Sleep Services Of MD Jerri unspecified [facility] G47.33 Obstructive sleep apnea (adult) (pediatric) E66.01 Morbid (severe) obesity due to excess calories Office Visit 06/06/2016 [facility] R07.9 Chest pain, 12:27p Assoc,pc Ivaton, EPIC WILLOW ANALYST unspecified Hospitalists G47.33 Obstructive sleep apnea (adult) (pediatric) E78.5 Hyperlipidemia, unspecified I10 Essential (primary) hypertension Office Visit 05/09/2016 1:40p [place] Qutaybeh S. E66.9 Obesity, Cardiology Renee Mcmillan unspecified I71.9 Aortic aneurysm of unspecified site, without rupture I10 Essential (primary) hypertension E78.5 Hyperlipidemia, unspecified Office Visit 12/16/2015 2:40p [place] [facility] Qutaybeh S. I10 Essential Renee Mcmillan (primary) hypertension F31.9 Bipolar disorder, unspecified G20 Parkinson's disease R60.9 Edema, unspecified R06.02 Shortness of breath E66.9 Obesity, unspecified I71.9 Aortic aneurysm of unspecified site, without rupture Office Visit 11/07/2015 Neurosurgery Teddy Diaz, M48.07 Spinal stenosis , 10:30a Services Of Kristie Duran lumbosacral region Office Visit 10/10/2015 [facility] Shadi R29.6 Repeated falls 2:57p Assoc,meng Pizarro M.D. 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 disease Hospitalists R26.9 Unspecified abnormalities of gait and mobility Office Visit 06/11/2015 [facility] Mitchell George G20 Parkinson's 8:33a Assoc,meng DAY M.D. disease Hospitalists R26.9 Unspecified abnormalities of gait and mobility Office Visit 05/13/2015 11:00a Orthopedic Cayetano S33.6xxA Sprain of Services Of Renee Nicole sacroiliac C.M.A. joint, initial encounter M54.32 Sciatica, left side [facility].90 Extrapyramidal 11:12a Assoc,pc N.P. Disease & Abnormal Hospitalists Movement Disorder Unspec 780.79 Malaise And Fatigue Other 724.2 Lumbago 296.80 Bipolar Disorder NOS [facility], 333.90 Extrapyramidal 11:12a Assoc,pc N.P. Disease & Abnormal Hospitalists Movement Disorder Unspec 724.2 Lumbago 780.79 Malaise And Fatigue Other 296.80 Bipolar Disorder NOS [facility], 333.90 Extrapyramidal 11:12a Assoc,pc N.P. Disease & Abnormal Hospitalists Movement Disorder Unspec 780.79 Malaise And Fatigue Other 724.2 Lumbago 296.80 Bipolar Disorder NOS Office Visit 01/24/2015 [facility] Brandy SDelonte 333.90 Extrapyramidal 11:11a Assoc,pc Foster, N.P. Disease & Abnormal Hospitalists Movement Disorder Unspec 724.2 Lumbago 780.79 Malaise And Fatigue Other 296.80 Bipolar Disorder NOS Office Visit 01/23/2015 11:10a [facility] Brandy Dubois, 724.2 Lumbago Hospitalists N.P. 780.79 Malaise And Fatigue Other 333.90 Extrapyramidal Disease & Abnormal Movement Disorder Unspec 296.80 Bipolar Disorder NOS Office Visit 01/22/2015 11:09a [facility] Brandy SDelonte 780.79 Malaise And Assoc,pc Foster, N.P. 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 584.9 Acute Kidney Assoc,pc Foster, N.P. Failure, Hospitalists Unspecified 332.0 Paralysis Agitans 401.9 Hypertension Unspec 296.80 Bipolar Disorder NOS Office Visit 12/31/2014 10:20a [facility] Brandy S. 584.9 Acute Kidney Assoc,pc Silvino, N.P. Failure, Hospitalists Unspecified 332.0 Paralysis Agitans 401.9 Hypertension Unspec 296.80 Bipolar Disorder NOS Office Visit 12/30/2014 [facility] Tabatha 584.9 Acute Kidney 10:19a Assoc,pc Francheska, EPIC WILLOW ANALYST Failure, Hospitalists Unspecified 332.0 Paralysis Agitans 401.9 Hypertension Unspec 296.80 Bipolar Disorder NOS Office Visit 12/29/2014 10:18a [facility] Damaris Rodriguez, 584.9 Acute Kidney Assoc,pc N.P. Failure, Hospitalists Unspecified 332.0 Paralysis Agitans 401.9 Hypertension Unspec 296.80 Bipolar Disorder NOS Office Visit 09/23/2014 Pulmonology And Moe HILL 780.53 Hypersomnia W/ 1:00p [facility] Sleep Apnea Hand Drawer In Helper Unspecified Office Visit 03/30/2014 Neurosurgery Dylan JDelonte 756.11 Spondylolysis 11:00a [facility]ir[facility] Lumbosacral Region Renee Congenital 756.12 Spondylolisthesis Congenital Office Visit 01/16/2013 9:06a Sleep Disorder Moe HILL 327.23 Ob[facility]ive [facility] Apnea Adult & Pediatric Office Visit 07/09/2012 8:42a [facility] Brandy S. 790.5 Serum Enzyme Assoc,pc Foster, N.P. Levels Abnormal Hospitalists Other Nonspec 790.5 Serum Enzyme Levels Abnormal Other Nonspec 786.51 Pain Precordial 786.51 Pain Precordial 824.8 FX Ankle Unspec Closed 296.50 Bipolar I Disorder Current Depressed NOS 296.50 Bipolar I Disorder Current Depressed NOS Office Visit 06/09/2009 10:00a [facility] Juan Carlos Barnes 278.01 Obesity Morbid Renee Lambert 780.79 Malaise And Fatigue Other Office Visit 10/09/2007 2:20p [facility] Juan Carlos Barnes 278.01 Obesity Morbid Renee Lambert 786.50 Pain Chest Unspec 302.72 Psychosexual Dysfunction W/ Inhibited Sexual Excitement 401.1 Hypertension Benign Office Visit 01/16/2007 2:40p [facility] Carlos Barnes 420.91 Pericarditis Cardiology Renee Lambert Idiopathic Acute 401.1 Hypertension Benign 302.72 Psychosexual Dysfunction W/ Inhibited Sexual Excitement 278.01 Obesity Morbid Office Visit 01/31/2006 2:20p [facility] Juan Carlos Barnes 786.50 Pain Chest Renee Lambert Unspec 401.1 Hypertension Benign 272.0 Hypercholesterolemia Pure Office Visit 01/05/2005 3:40p [facility] Juan Carlos Barnes 786.50 Pain Chest Renee Lambert Unspec Office Visit 07/04/2004 3:00p [facility] Juan Carlos Barnes 786.50 Pain Ira Lambert M.D. Unspec 401.1 Hypertension Benign 272.0 Hypercholesterolemia Pure 278.01 Obesity Morbid Office Visit 02/24/2004 2:20p [facility] Juan Carlos Barnes 786.59 Pain Ira Lambert M.D. Other 272.0 Hypercholesterolemia Pure 278.01 Obesity Morbid Office Visit 09/08/2003 11:30a [facility] Juan Carlos Barnes 786.59 Pain Ira Lambert M.D. Other Office Visit 08/19/2003 3:40p [facility] Juan Carlos Barnes 786.59 Pain Ira Lambert M.D. Other 414.01 Coronary Atherosclerosis [place] 401.1 Hypertension Benign 278.00 Obesity Unspec Office Visit 04/21/2003 3:20p [facility] Juan Carlos Barnes 786.59 Pain Ira Lambert M.D. Other 401.1 Hypertension Benign Plan of Treatment Future Appointment(s):02/27/2019 10:45 am - Dexter Clancy M.D. at [facility]11/17/2018 - Dexter Clancy M.D.G20 Parkinson's diseaseNew Medication:Melatonin 5 mg - 1 cap at bedtimeFollow up:3 [id number] Bipolar disorder, [id number] Repeated fallsNew Therapy:Physical Therapy
--- OUTSIDE RECORDS SUMMARY | 2018-11-27 08:51 | XMS REPORT | Continuity of Care Document ---
:1950 External Reference #:[id number] Author Name Nicole Bullard Care Team Providers Name Role Phone Tamie Russo MD Care Team Information Financial Planning Adviser Unavailable Guille Astudillo MD Primary Care Physician Unavailable Payers Date Identification Numbers Payment Provider Subscriber Policy Number: [id number] Medicare Sachin Cedeno PayID: [id number] [address] [place] [address] Effective: 2014 Policy Number: [id number] Medicaid Sachin Cedeno Group Name: 1 1 [address] PayID: [id number] [place] [address] Advance Directives Description No Information Available Problems [...] MD Active Family History Date Family Member(s) Observation Comments General Emphysema Father Alzheimer's Disease Mother Emphysema Mother due to Emphysema () - at age 70 Siblings 3 Siblings Alive and well Social History Type Date Description Comments Sex Unknown Marital Status Single Lives With Alone [place] Occupation Disabled Hand Dominance Left-handed Tobacco Use [...] Form Strength Qnty SIG Indications Ordering Provider Nuplazid 09/01 Active Capsules 34mg 30cap Take one Jaylan s tablet Dawson, Daily N.P. Carbidopa-Levodo 08/21 Active Tablets 25-100mg 75tab 1 pill in F31.9 [place] s am, 1 Renee Clancy pill at noon and 1/2 pill at dinner, take 30 min prior to meals Senna-Docusate 12/15 Active Tablets 8.6-50mg 30tab 2 tablets Qutaybeh S. Sodium s by mouth Maghaydah, once M.D. daily [...] at bedtime Amantadine HCL Active Tablets 100mg 60tab 1 tablet Christopher /0000 s by mouth Renee Clancy every morning and at noon Depakote ER Active Tablets ER 500mg 2 [...] in the evening as needed muscle spasms [place] Active Tablets 5-325mg one tab Unknown /0000 by mouth every 4-6 hours as needed pain Pyridium Active Tablets 100mg one by Unknown /0000 mouth three times a day as Needed Gabapentin Active Capsules 100mg 3 Unknown /0000 capsules by mouth 3 times a day Carbidopa-Levodo 06/18 Hx Tablets 25-100mg 90tab 1 tab F31.9 Dexter felipe Clancy M.D. - times per /2018 Mobic 05/13 Hx Tablets 7.5mg 30tab once s daily Corey, - with food M.D. 05/08 as needed /2015 Neurontin 05/13 Hx Capsules 300mg 30cap 1 by Cayetano s mouth Corey, - every M.D. 02/13 night at bedtime Aspir-81 03/[address] 81mg 1 by Dylan Gamino /2013 mouth Pollack, - every day M.D. 09/12 pr Celexa 10/08 Hx Tablets 60mg 90tab 1 PO qd Juan Carlos Barnes felipe Lambert M.D. - 03/30 Lamictal 10/08 Hx Tablets 300mg 1 PO qd Juan Carlos Lambert M.D. - 03/30 Seroquel 10/08 Hx Tablets 25mg 60tab in am and Juan Carlos Barnes felipe Lambert M.D. - 03/30 50 mg at hs Lexapro 01/16 Hx Tablets 30mg 1 PO qd Juan Carlos Lambert M.D. - 10/08 Ambien CR 01/16 Hx Tablets ER 12.5mg 1 Tablet Juan Carlos Gonsalez2006 PO Q hs Renee Lambert - prn [...] Hx Tablets 1mg 1/2 tab Juan Carlos Barnes in am and Renee Lambert - noon [...] 01/31 Klonopin 01/05 Hx Tablets 2mg 2mg q Juan Carlos Barnes Renee Lambert - 01/31 Naproxen 01/05 Hx Tablets 500mg 1 po bid Juan Carlos Barnes Renee Lambert - 01/31 Klonopin 01/05 Hx Tablets 2mg 2mg qhs Juan Carlos Barnes prn Renee Lambert - 01/31 Diclofenac 01/05 Hx Tablets 50mg 1 po tid Juan Carlos Barnes prtoña Lambert M.D. - 01/16 [place] 07/04 Hx Capsules 300mg 1 po am Juan Carlos Barnes Renee Lambert - 01/05 Depakote 07/04 Hx Tablets 500mg 3 tabs Juan Carlos Barnes red Lambert M.D. - 01/05 Nitrostat 05/26 Hx Tablets 0.4mg 25tab one Juan Carlos Barnes s q5min up Renee Lambert - to 3 01/31 doses prn Lipitor 02/23 Hx Tablets 80mg 30tab 1 po qd Juan Carlos Barnes felipe Lambert M.D. - 01/16 Protonix 02/22 Hx Tablets 40mg qd Juan Carlos Barnes Renee Lambert - 01/31 Colace 02/22 Hx Capsules 100mg 30cap 1 po bid Juan Carlos Barnes felipe Lambert M.D. - 01/31 Seroquel 02/22 Hx Tablets 900mg qd Juan Carlos Barnes Renee Lambert - 01/31 Nitrostat 08/24 Hx Tablets 0.3mg 100ta one sl Juan Carlos Barnes bs q5min up Renee [...] Juan Carlos Barnes Renee Lambert - 02/23 [place] 08/19 Hx Capsules 600mg 30cap 1 po [...] 50mg 90tab 1 po qd Juan Carlos Lambert M.D. - 01/31 Lasix 04/20 Hx Tablets 20mg 30tab 1 po qd Juan Carlos Gonsalez2002 felipe Lambert M.D. - 01/31 Seroquel 04/20 Hx Tablets 100mg 90tab qam Juan Carlos Lambert M.D. - 08/19 Seroquel 04/20 Hx Tablets 600mg 90tab qeve Juan Carlos Lambert M.D. - 08/19 Klonopin 04/20 Hx [...] 09/12 Cyclobenzaprine Hx Tablets 10mg Darlow, HCL /0000 Guille Mi MD - 09/12 Diphenhydramine Hx Capsules 25mg Unknown HCL /0000 - 09/12 Hydrocodone-Ibup Hx Tablets 7.5-200mg Unknown rofen /0000 - 09/12 [place] Hx Capsules 300mg Unknown Carbonate / - 09/12 Oxycodone-Acetam Hx Tablets 5-325mg golden Goveaphen /0000 MD Alicia - 09/12 Lorazepam Hx Tablets 0.5mg Unknown / - 09/12 Proair HFA Hx Aerosol 108(90Bas Unknown /0000 e) - mcg/Act 05/10 Vesicare 00/00 Hx Tablets 5mg Unknown /0000 - 09/12 Ibuprofen 00/00 Hx Tablets 600mg 1 by Unknown /0000 mouth - three 05/10 times day as needed Metaxalone 00/00 Hx Tablets 400mg 1 tablet Unknown /0000 by nouth - two times 02/13 Tramadol HCL 00/00 Hx Tablets 50mg 2 tablets Unknown /0000 every 8 - hours as 05/10 for pain Furosemide 00 Hx Tablets 20mg 2 by Unknown /0000 mouth - every 05/10 3 tablets in evening Multivitamin 0000 Hx Tablets one by Unknown Adult /0000 mouth - every day 12/14 Miralax 00/00 Hx Packet [id number] 17 gm Unknown /0000 every day - 05/10 Cogentin 00/00 Hx Tablet 0.5mg 1 by Unknown /0000 mouth - twice a Colace / Hx Capsules 100mg 1 by Unknown /0000 [...] Unknown inophen /0000 at - bedtime 05/10 Meloxicam 00/00 Hx Tablets 7.5mg take 1 Unknown /0000 tab by - mouth 02/13 qd with food Lorazepam 00/00 Hx Tablets 0.5mg 1 po qhs Unknown /0000 - 02/13 Polyethylene 00/00 Hx Powder every day Unknown Glycol /0000 with a - large 06/18 glass water Divalproex 00/[address] 500mg take one Unknown Sodium /0000 tablet by - mouth 06/18 twice a day 17GM 00/00 Hx Packet [id number] as needed Unknown /0000 [...] Result H/L Range Note Laboratory test 09/26/2015 [facility] TSH 0.23 ?IU/mL Low 0.34 -5.60 1, [address] ([place] [address] Stim Horm) [phone] Free T4 (Free Thyroxine) 0.95 ng/dL N 0.61-1.12 3 Vitamin B12 340 pg/mL N 180-914 4 Folic Acid (Folate) > 20.00 ng/mL N >3.99 5 Methylmalonic Acid Mma 0.21 nmol/mL N <=0.40 6 Dulce (Antinuclear Antibodies) Negative N Negative 7 Erythrocyte Sed Rate 3 mm/Hr N 0-40 8 C Reactive Protein < 1.00 mg/L N < 5.00 9 Protein 09/26/2015 [facility] Total 7.1 g/dL N 6.3 - Electrophoresis [address] Protein(Pep) 7.9 [place] [address] [phone] Albumin 3.7 g/dL N 3.4-4.7 Alpha-1 Globulin 0.3 g/dL N 0.1-0.3 Alpha-2 Globulin 0.9 g/dL N 0.6-1.0 Beta Globulin 0.9 g/dL N 0.7-1.2 Gamma Globulin 1.3 g/dL N 0.6-1.6 Albumin/Globulin Ratio 1.06 N Impression See Comment N 10 Laboratory test 09/26/2015 [facility] Hemoglobin A1c 5.8 % N Less than [address] (Glyco HGB) 6.0 [place] [address] [phone] Laboratory test 10/15/2007 [facility] Erythrocyte Sed 1 MM/HR 0-[address] [place] [address] [phone] CBC With Manual 10/15/2007 [facility] White Blood 5.2 CUMM 4.8-10.[address] [place] [address] [phone] Absolute Neutrophil Count 2.9 Atypical Lymph 4 [...] WDTH 13 % 10.5-15 Lipid Profile 10/15/2007 [facility] Cholesterol/HDL 4.40 1- 4.97 (Trig/Chol/HDL) [address] [place] [address] [phone] Cholesterol 207 mg/dL High Less Than 200 12 Triglyceride 103 mg/dL 40-200 High Density Lipoprotein 47 mg/dL 40-60 Low Density Lipoprotein 139 mg/dL High Less Than 100 13 Comp Metabolic Panel 10/15/2007 [facility] One Over Creatinine 0.[address] [place] [address] [phone] Anion Gap 6.0 mmol/L 2-11 14 Albumin/Globulin [...] Creatinine 1.1 mg/dL 0.5-1.4 Laboratory test 10/15/2007 [facility] D Dimer < 200 < 230 [address] Quantitative NG/[place] [address] [phone] BNP Evaluatr < 7.5 pg/mL Low 7.5-100 CPK (Creatine Kinase) 211 U/L High 0-200 C Reactive Protein < 0.5 mg/dL Less Than 0.5 1 similar to TSH in 2006, free T4 normal 2 with immunofixation Copy Result to: GUILLE ASTUDILLO ([id number]) 3 with immunofixation Copy Result to: GUILLE ASTUDILLO ([id number]) 4 Normal Range 180 to 914 Indeterminate Range 145 to 180 Deficient Range <145 5 with immunofixation Copy Result to: GUILLE ASTUDILLO ([id number]) 6 Test Performed by: [address] [address] Product Support Specialist: Nathan Ruffin II, M.D., Ph.D. 7 with immunofixation Copy Result to: GUILLE ASTUDILLO ([id number]) 8 with immunofixation Copy Result to: GUILLE ASTUDILLO ([id number]) 9 Acute inflammation: >10.00 10 RESULT: No apparent monoclonal protein on serum electrophoresis. Test Performed by: [place] [id number] Product Support Specialist: Nathan Ruffin II, M.D., Ph.D. 11 Therapeutic target for the treatment of diabetes Mellitus patients is <7% HBA1C, and in selective patients <6.0%.Please refer to [place] [employer] Diabetic care guidelines for further [...] . Procedures Date Code Description Status 03/14/2017 56748 ECHO Transthoracic, Real-Time 2D With Doppler And Color Completed Flow 02/14/2017 24874 EKG Tracing & Interpretation Completed 10/31/2016 48859 Polysomnography Sleep Staging 4+ Parameters W/Cpap Completed 03/28/2016 34098 ECHO Transthoracic, Real-Time 2D With Doppler And Color Completed Flow 03/07/2016 29992 Treadmill Interp/Report Only Completed 03/07/2016 96117 Stress Test Supervsn W/Out I/R Completed 12/30/2015 38061 Treadmill Interp/Report Only Completed 12/30/2015 23373 Stress Test Supervsn W/Out I/R Completed 12/16/2015 42818 EKG Tracing & Interpretation Completed 10/10/2015 35886 EKG, Interpretation Only Completed 10/03/2015 56547 EKG, Interpretation Only Completed 12/30/2014 40951 ECHO Transthorasic Realtime 2D W Doppler & Color Flow Hosp Completed 07/08/2012 40978 EKG, Interpretation Only Completed 07/06/2012 16629 EKG, Interpretation Only Completed 06/09/2009 53050 EKG Tracing & Interpretation Completed 10/22/2007 87570 ECHO/Stress Completed 10/22/2007 71751 ECHO/Stress Completed 10/22/2007 31632 Stress Test Completed 10/09/2007 73109 EKG Tracing & Interpretation Completed 01/16/2007 23653 EKG Tracing & Interpretation Completed 01/16/2007 18449 EKG Tracing & Interpretation Completed 03/12/2006 96589 Color Doppler Completed 03/12/2006 29481 Pulse Doppler & Continuous Wave Completed 03/12/2006 70639 Echocardiogram Completed 03/12/2006 42916 Echocardiogram Completed 01/31/2006 74772 EKG Tracing & Interpretation Completed 01/05/2005 59874 EKG Tracing & Interpretation Completed 07/04/2004 20617 EKG Tracing & Interpretation Completed 06/14/2004 70695 EKG, Interpretation Only Completed 02/24/2004 54497 EKG Tracing & Interpretation Completed 09/08/2003 62811 Intro. Needle Or Intracath.,Vein Completed 09/08/2003 67494 IV Infusion For DX/Upt To 1 HR. Completed 09/08/2003 56620 Stress Test Completed 09/08/2003 80381 ECHO/Stress Completed 08/19/2003 37589 ECHO/Stress Completed 08/19/2003 43543 Stress Test Completed 05/09/2003 68218 EKG, Interpretation Only Completed 05/08/2003 74018 EKG, Interpretation Only Completed 05/03/2003 98630 EKG, Interpretation Only Completed 04/21/2003 12617 EKG Tracing & Interpretation Completed 04/09/2003 87397 EKG, Interpretation Only Completed Encounters Type Date Location Provider Dx Diagnosis Office Visit 08/21/2018 [facility] Dexter Clancy, F31.9 Bipolar disorder, 1:30p Services Of Kristie Duran unspecified G20 Parkinson's disease Office Visit 05/05/2018 Mao Clancy, R25.1 Tremor, 9:30a Neurologic MDelonteDDelonte unspecified Services Of Kristie F31.9 Bipolar disorder, unspecified Office Visit 02/27/2018 1:00p Wound Care Teddy Barnes S81.801D Unspecified open Center AT [facility] Renee Anne wound, right lower leg, subs encntr I89.0 Lymphedema, not elsewhere classified I10 Essential (primary) hypertension Office Visit 02/20/2018 1:00p Wound Care Teddy Barnes S81.801A Unspecified open Center AT [facility] Renee Anne wound, right lower leg, initial encounter I89.0 Lymphedema, not elsewhere classified I10 Essential (primary) hypertension Office Visit 01/08/2018 [facility] Flakita Best, G20 Parkinson's 2:30p Clinic MD disease Office Visit 06/18/2017 [facility] Flakita Best, R29.6 Repeated falls 2:00p Clinic R25.1 Tremor, unspecified Office Visit 02/14/2017 Archana Jameson G47.33 Obstructive sleep 2:00p Cardiology Of Renee Mcmillan apnea (adult) Supervisor Pleating (pediatric) E66.01 Morbid (severe) obesity due to excess calories E78.5 Hyperlipidemia, unspecified I71.9 Aortic aneurysm of unspecified site, without rupture I10 Essential (primary) hypertension Z68.41 Body mass index (BMI) 40.0-44.9, adult Office Visit 10/02/2016 1:00p Pulmonology And Salma G47.9 Sleep disorder, Sleep Services Of MD Jerri unspecified Supervisor Pleating G47.33 Obstructive sleep apnea (adult) (pediatric) E66.01 Morbid (severe) obesity due to excess calories Office Visit 06/06/2016 [facility] R07.9 Chest pain, 12:27p Assoc,meng Cerrato, BREAKFAST ATTENDANT unspecified Hospitalists G47.33 Obstructive sleep apnea (adult) (pediatric) E78.5 Hyperlipidemia, unspecified I10 Essential (primary) hypertension Office Visit 05/09/2016 1:40p [place] James[place] E66.9 Obesity, Cardiology Renee Mcmillan unspecified I71.9 Aortic aneurysm of unspecified site, without rupture I10 Essential (primary) hypertension E78.5 Hyperlipidemia, unspecified Office Visit 12/16/2015 2:40p [facility] Art Jameson I10 Essential Renee Mcmillan (primary) hypertension F31.9 Bipolar disorder, unspecified G20 Parkinson's disease R60.9 Edema, unspecified R06.02 Shortness of breath E66.9 Obesity, unspecified I71.9 Aortic aneurysm of unspecified site, without rupture Office Visit 11/07/2015 Neurosurgery Teddy Diaz, M48.07 Spinal stenosis , 10:30a Services Of Kristie Duran lumbosacral region Office Visit 10/10/2015 [facility] Shadi R29.6 Repeated falls 2:57p Assoc,meng Pizarro M.D. 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 disease Hospitalists R26.9 Unspecified abnormalities of gait and mobility Office Visit 06/11/2015 [facility] Mitchell George G20 Parkinson's 8:33a Assoc,meng DAY M.D. disease Hospitalists R26.9 Unspecified abnormalities of gait and mobility Office Visit 05/13/2015 11:00a Orthopedic Cayetano S33.6xxA Sprain of Services Of Renee Nicole sacroiliac C.M.A. joint, initial encounter M54.32 Sciatica, left side Office Visit 01/27/2015 [facility] Damaris Rodriguez, 333.90 Extrapyramidal 11:12a Assoc,meng N.P. Disease & Abnormal Hospitalists Movement Disorder Unspec 780.79 Malaise And Fatigue Other 724.2 Lumbago 296.80 Bipolar Disorder NOS [facility] 333.90 Extrapyramidal 11:12a Assoc,pc N.P. Disease & Abnormal Hospitalists Movement Disorder Unspec 724.2 Lumbago 780.79 Malaise And Fatigue Other 296.80 Bipolar Disorder NOS [facility], 333.90 Extrapyramidal 11:12a Assoc,pc N.P. Disease & Abnormal Hospitalists Movement Disorder Unspec 780.79 Malaise And Fatigue Other 724.2 Lumbago 296.80 Bipolar Disorder NOS Office Visit 01/24/2015 [facility] Brandy S. 333.90 Extrapyramidal 11:11a Assoc,pc Silvino, N.P. Disease & Abnormal Hospitalists Movement Disorder Unspec 724.2 Lumbago 780.79 Malaise And Fatigue Other 296.80 Bipolar Disorder NOS Office Visit 01/23/2015 11:10a [facility] Assoc, Brandy Dubois, 724.2 Lumbago Hospitalists N.P. 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 780.79 Malaise And Assoc,pc Silvino, N.P. 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 584.9 Acute Kidney Assoc,pc Silvino, N.P. Failure, Hospitalists Unspecified 332.0 Paralysis Agitans 401.9 Hypertension Unspec 296.80 Bipolar Disorder NOS Office Visit 12/31/2014 10:20a [facility] Brandy S. 584.9 Acute Kidney Assoc,pc Silvino, N.P. Failure, Hospitalists Unspecified 332.0 Paralysis Agitans 401.9 Hypertension Unspec 296.80 Bipolar Disorder NOS Office Visit 12/30/2014 [facility] Tabatha 584.9 Acute Kidney 10:19a Assoc,pc Francheska, BREAKFAST ATTENDANT Failure, Hospitalists Unspecified 332.0 Paralysis Agitans 401.9 Hypertension Unspec 296.80 Bipolar Disorder NOS Office Visit 12/29/2014 10:18a [facility] Damaris Rodriguez, 584.9 Acute Kidney Assoc,pc N.P. Failure, Hospitalists Unspecified 332.0 Paralysis Agitans 401.9 Hypertension Unspec 296.80 Bipolar Disorder NOS Office Visit 09/23/2014 Pulmonology And Moe SK. 780.53 Hypersomnia W/ 1:00p Sleep Services Of Renee Nelson Sleep Apnea Supervisor Pleating Unspecified Office Visit 03/30/2014 Neurosurgery Dylan JDelonte 756.11 Spondylolysis 11:00a Services Of Kristie Liriano Lumbosacral Region Renee Congenital 756.12 Spondylolisthesis Congenital Office Visit 01/16/2013 9:06a Sleep Disorder Moe HILL 327.23 Obstructive Sleep Center Renee Nelson Apnea Adult & Pediatric Office Visit 07/09/2012 8:42a [facility] Brandy S. 790.5 Serum Enzyme Assoc,pc Silvino, N.P. Levels Abnormal Hospitalists Other Nonspec 790.5 Serum Enzyme Levels Abnormal Other Nonspec 786.51 Pain Precordial 786.51 Pain Precordial 824.8 FX Ankle Unspec Closed 296.50 Bipolar I Disorder Current Depressed NOS 296.50 Bipolar I Disorder Current Depressed NOS Office Visit 06/09/2009 10:00a [facility] Juan Carlos Barnes 278.01 Obesity Morbid Renee Lambert 780.79 Malaise And Fatigue Other Office Visit 10/09/2007 2:20p [facility] Juan Carlos Barnes 278.01 Obesity Morbid Renee Lambert 786.50 Pain Chest Unspec 302.72 Psychosexual Dysfunction W/ Inhibited Sexual Excitement 401.1 Hypertension Benign Office Visit 01/16/2007 2:40p [place] Juan Carlos Barnes 420.91 Pericarditis Cardiology Renee Lambert Idiopathic Acute 401.1 Hypertension Benign 302.72 Psychosexual Dysfunction W/ Inhibited Sexual Excitement 278.01 Obesity Morbid Office Visit 01/31/2006 2:20p [facility] Juan Carlos Barnes 786.50 Pain Chest Liza Lambert. Unspec 401.1 Hypertension Benign 272.0 Hypercholesterolemia Pure Office Visit 01/05/2005 3:40p [facility] Juan Carlos FDelonte 786.50 Pain Chest Liza Lambert. Unspec Office Visit 07/04/2004 3:00p [facility] Juan Carlos F. 786.50 Pain Chest Maria LambertD. Unspec 401.1 Hypertension Benign 272.0 Hypercholesterolemia Pure 278.01 Obesity Morbid Office Visit 02/24/2004 2:20p [facility] Juan Carlos F. 786.59 Pain Chest Fausto MDelonteD. Other 272.0 Hypercholesterolemia Pure 278.01 Obesity Morbid Office Visit 09/08/2003 11:30a [facility] Juan Carlos FDelonte 786.59 Pain Chest Liza Lambert. Other Office Visit 08/19/2003 3:40p [facility] Juan Carlos F. 786.59 Pain Chest Maria LambertD. Other 414.01 Coronary Atherosclerosis [place] 401.1 Hypertension Benign 278.00 Obesity Unspec Office Visit 04/21/2003 3:20p [facility] Juan Carlos Barnes 786.59 Pain Chest Maria LambertD. Other 401.1 Hypertension Benign Plan of Treatment Future Appointment(s):11/07/2018 4:00 pm - Dexter Clancy M.D. at [facility]08/21/2018 - Dexter Clancy M.D.F31.9 Bipolar disorder, unspecifiedNew [...]
== END 2018-11-27 09:05 | disposition home or self-care (01) ==
LOC: ED 08:23
DX: Z48.01 Encounter for change or removal of surgical wound dressing (principal); F32.9 Major depressive disorder, single episode, unspecified; F41.9 Anxiety disorder, unspecified; S31.103D Unspecified open wound of abdominal wall, right lower quadrant without penetration into peritoneal cavity, subsequent encounter; X58.XXXD Exposure to other specified factors, subsequent encounter
CPT/HCPCS: 99282; A9270-GY

== ENCOUNTER 2019-04-02 06:53 | Emergency (ER) | payer MEDICARE, MEDICAID ==
[2019-04-02] MEDS: NS 0.9% 1000 ML** 1,000 ML IV ONE (07:35)
[2019-04-02 07:36] LABS: ABS Eosinophils 0.1 10^3/ul (0-0.6); ABS Lymphocytes 1.6 10^3/ul (1.0-4.8); ABS Monocytes 0.7 10^3/ul (0-0.8); ABS Neutrophils 3.1 10^3/ul (1.5-7.7); Eosinophil % 2.6 %; Hematocrit 43 % (42-52); Hemoglobin 15.1 g/dL (14.0-18.0); Lymphocyte % 29.2 %; Mean Corpuscular HGB Conc 35 g/dL (31-36); Mean Corpuscular Hemoglobin 32 pg (27-31); Mean Corpuscular Volume 93 fL (80-94); Mean Platelet Volume 7.5 fL (7.4-10.4); Nucleated Red Blood Cells % 0.1; Platelet Count 152 10^3/uL (150-450); Red Blood Count 4.66 10^6 /uL (4.18-5.48); Red Cell Distribution Width 14 % (10-15); White Blood Count 5.6 10^3/uL (3.5-10.8)
[2019-04-02 07:39] LABS: Urine Appearance Clear; Urine Bilirubin Negative (Negative); Urine Blood Negative (Negative); Urine Color Yellow; Urine Glucose Negative (Negative); Urine Ketones Trace (Negative); Urine Nitrite Negative (Negative); Urine Protein Negative (Negative); Urine Specific Gravity 1.023 (1.010-1.030); Urine Urobilinogen Negative (Negative)
[2019-04-02 07:56] LABS: Albumin 4.1 g/dL (3.2-5.2); Albumin/Globulin Ratio 1.7 (1-3); BUN/Creatinine Ratio 21.9 (8-20); C Reactive Protein 1.71 mg/L (<8.01); Calcium 9.6 mg/dL (8.6-10.3); EGFR African American 84.5 (>60); EGFR Non-African American 69.8 (>60); Globulin 2.4 g/dL (2-4); Magnesium 2.1 mg/dL (1.9-2.7); Potassium 4.4 mmol/L (3.5-5.0); Total Bilirubin 0.5 mg/dL (0.2-1.0); Total Protein 6.5 g/dL (6.4-8.9)
--- OUTSIDE RECORDS SUMMARY | 2019-04-02 08:17 | XMS REPORT | Continuity of Care Document ---
:1950 External Reference #:[id number] Author Name Covert, Janett Care Team Providers Name Role Phone Guille Astudillo MD Primary Care Physician Unavailable Payers Date Identification Numbers Payment Provider Subscriber Policy Number: [id number] Medicare Sachin Cedeno PayID: [id number] [address] [place] [address] Effective: 2014 Policy Number: [id number] Medicaid Sachin Cedeno Group Name: 1 [address] PayID: [id number] [place] [address] Problems Active Problems Provider Date Hypersomnia with [...] Flakita Best MD Onset: 01/08/2018 Bipolar disorder Dexter Clancy M.D. Onset: 05/05/2018 Localized superficial swelling of skin Reagan Espinoza M.D. Onset: 2018 Body mass index 40+ - severely obese Reagan Espinoza M.D. 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 Carbidopa-Levodopa 1 pill in am, 75tabs F31.9 Dexter Clancy, 08/21/2018 25-100mg 1 pill at noon M.D. Tablets and 1/2 pill at dinner, take 30 min prior to meals Senna-Docusate Sodium 2 tablets by 30tabs Art SDelonte 12/16/2015 8.6-50mg mouth once Renee Mcmillan Tablets daily Guaifenesin as needed for Unknown cough Nortriptyline HCL take two tabs Carrera, 10mg Capsules at hs daily VINITA Olivares Gabapentin 3 capsules by Unknown 100mg Capsules mouth 3 times a day Pyridium one by mouth Unknown 100mg Tablets three times a day as Needed Fillmore one tab by Unknown 5-325mg Tablets mouth [...] 24HR bedtime Amantadine HCL 1 tablet by 30tabs Jaylan Dawson, 100mg Tablets mouth daily N.P. Trazodone HCL 1 tablet at Unknown 150mg [...] Unknown 30mg Tablets every day History Medications Nuplazid Take one 30caps Jaylan Dawson, 09/01/2018 - 34mg Capsules tablet Daily N.P. 12/24/2018 Carbidopa-Levodopa 1 tab three 90tabs F31.9 Dexter Clancy, 06/18/2017 - times per day M.D. 08/21/2018 25-100mg Tablets Mobic once daily 30tabs Cayetano Nicole, 05/13/2015 - 7.5mg Tablets with food as M.D. 05/08/2016 needed Neurontin 1 by mouth 30caps Cayetano Nicole, 05/13/2015 - 300mg Capsules every night at M.DDelonte 02/13/2017 bedtime Aspir-81 1 by mouth Dylan Liriano, 03/30/2014 - 81mg Tablets DR every day prn MAlyln 09/12/2015 Celexa 1 PO qd 90tabs Juan Carlos Barnes 10/09/2007 - 60mg Tablets Renee Lambert 03/30/2014 Lamictal 1 PO qd Juan Carlos FDelonte 10/09/2007 - 300mg Tablets Renee Lambert 03/30/2014 Seroquel in am and noon 60tabs Juan Carlos Barnes 10/09/2007 - 25mg Tablets Renee Lambert 03/30/2014 50 mg at hs Ranitidine HCL 1 To 2 qd Juan Carlos F. 01/16/2007 - 150mg Renee Lambert 03/30/2014 Capsules Finasteride 1 PO qhs Juan Carlos Barnes 01/16/2007 - 5mg Tablets Renee Lambert 10/09/2007 Ativan 1/2 tab in am Juan Carlos F. 01/16/2007 - 1mg Tablets and noon Renee Lambert 03/30/2014 2 mg at hs Rozerem q Juan Carlos Barnes 01/16/2007 - 16mg Tablets Renee Lambert 03/30/2014 Lamictal 1 PO qd Juan Carlos Barnes 01/16/2007 - 200mg Tablets Renee Lambert 10/09/2007 Trazodone HCL 1 PO qhs Juan Carlos Delonte 01/16/2007 - 450mg Renee Lambert 03/30/2014 Tablets Aricept One QHS 30tabs Juan Carlos Barnes 01/16/2007 - 5mg Tablets Renee Lambert 03/30/2014 Ambien CR 1 Tablet PO Q Juan Carlos Delonte 01/16/2007 - 12.5mg Tablets hs prn Renee Lambert 03/30/2014 ER Lexapro 1 PO qd Juan Carlos F. 01/16/2007 - 30mg Tablets Renee Lambert 10/09/2007 Atenolol 1/2 po qd 30tabs Juan Carlos Barnes 01/31/2006 - 25mg Tablets until 02/01/07 Renee Lambert 10/09/2007 and the 1/2 tablet po qod until 02/14/07 and then discontinue. Ativan one qd prn 30tabs Juan Carlos Barnes 01/30/2006 - 1mg Tablets Renee Lambert 01/16/2007 Risperdal Consta one q 2 weeks Juan Carlos Barens 01/30/2006 - 25mg Renee Lambert 01/16/2007 Injection Colace 1 po qd Juan Carlos FDelonte 01/30/2006 - 100mg Capsules Renee Lambert 01/16/2007 Nexium 1 PO qd 30caps Juan Carlos Barnes 01/30/2006 - 40mg Capsules Renee Lambert 01/16/2007 Trazodone one daily 30tabs Juan Carlos Barnes 01/30/2006 - 200mg Tablets Renee Lambert 01/16/2007 Depakote 1 po qd Juan Carlos FDelonte 01/30/2006 - 1500 Tablets Renee Lambert 01/16/2007 Thorazine 0ne qd Juan Carlos FDelonte 01/30/2006 - 100mg Tablets Renee Lambert 01/16/2007 Depakote er 6 qhs Juan Carlos FDelonte 01/05/2005 - 500mg Tablets Renee Lambert 01/31/2006 Neurontin 1 po bid 90caps Juan Carlos Barnes 01/05/2005 - 300mg Capsules Renee Lambert 01/31/2006 Remeron one po q hs 30tabs Juan Carlos FDelonte 01/05/2005 - 15mg Tablets Renee Lambert 01/31/2006 Klonopin 2mg qhs Juan Carlos FDelonte 01/05/2005 - 2mg Tablets Renee Lambert 01/31/2006 Naproxen 1 po bid Juan Carlos FDelonte 01/05/2005 - 500mg Tablets Renee Lambert 01/31/2006 Klonopin 2mg qhs prn Juan Carlos FDelonte 01/05/2005 - 2mg Tablets Renee Lambert 01/31/2006 Diclofenac Sodium 1 po tid prn Juan Carlos Barnes 01/05/2005 - 50mg Renee Lambert 01/16/2007 Tablets [place] 1 po am Juan Carlos Barnes 07/04/2004 [...] 30units Juan Carlos Delonte 08/19/2003 - 0.2mg/Hour wall qam off Renee Lambert 08/24/2003 Patches qpm [place] 1 po qam, 1 po 30caps Juan Carlos Barnes 08/19/2003 - 600mg Capsules qhs Renee Lambert 07/04/2004 Flurazepam q Juan Carlos Delonte 08/19/2003 - 30mg Capsules Renee Lambert 02/24/2004 Vitram q6h prn pain Juan Carlos Delonte 08/19/2003 - 50mg Tablets Renee Lambert 02/24/2004 Aspirin Enteric Coated qd Juan Carlos Delonte 08/19/2003 - Renee Lambert 09/12/2015 81mg Tablets Klor-Con M10 qd 360tabs Juan Carlos Barnes 08/19/2003 - 10Meq Renee Lambert 09/26/2004 Tablets leschol 1 po qd Juan Carlosjeferson Barnes 08/19/2003 - 80mg Tablets Renee Lambert 02/24/2004 Clonazepam 1 po qam, 2 hs 30tabs Juan Carlos Barnes 08/19/2003 - 1mg Tablets Renee Lambert 01/05/2005 Seroquel qhs Juan Carlos Barnes 08/19/2003 - 700mg Tablets Renee Lambert 02/24/2004 Seroquel 1 po qam JuanC arlos Barnes 08/19/2003 - 200mg Tablets Renee Lambert 02/24/2004 Tegretol 1 po bid 30tabs Juan Carlos Barnes 08/19/2003 - 500mg Tablets Renee Lambert 01/31/2006 Lescol one qhs 90caps Juan Carlos Barnes 04/20/2003 - 20mg [...] Multivitamin Adult one by mouth Unknown - every day 12/15/2015 Tablets Miralax 17 gm every Unknown - 3350NF Packet day 05/10/2016 Cogentin 1 by mouth Unknown - 0.5mg Tablet twice a day 05/10/2016 Colace 1 by mouth Unknown - 100mg Capsules twice a day 12/15/2015 Oxybutynin Chloride ER 1 tablet daily Unknown - 05/08/2016 5mg Calcium Antacid 2 tablets Unknown - every 12hrs 02/13/2017 prn Lactulose 30ml daily prn Unknown - 05/10/2016 Neurontin 1 tablet daily Unknown - 300MFG 02/13/2017 Oxycodone-Acetaminophe 1 tablet at Unknown - n bedtime prn 05/10/2016 7.5/325 Meloxicam take 1 tab by Unknown - 7.5mg Tablets mouth qdaily 02/13/2017 with food Lorazepam 1 po qhs Unknown - 0.5mg Tablets 02/13/2017 Vesicare 1 tablet po Augustin Andino MD - 5mg Tablets daily 07/31/2018 Microzide 1 tab daily Unknown - 12.5mg Capsules w/lisinopril 07/31/2018 Polyethylene Glycol every day with Unknown - a large glass 06/18/2017 Powder of water Divalproex Sodium take one Unknown - 500mg tablet by 06/18/[address] mouth twice a day 17GM as needed Unknown - 3350NF Packet 05/04/2018 Melatonin ER 1 by mouth Unknown - 5mg Tablets every night at 07/31/2018 ER bedtime Cyclobenzaprine HCL 1 tablet by Unknown - 10mg mouth in the 07/31/2018 Tablets evening as needed muscle spasms Acetaminophen as Needed Unknown - 500mg 01/07/2018 Tablets Seroquel at at bedtime Unknown - 300mg Tablets 09/12/2015 Seroquel 1 by mouth 30tabs Unknown - 200mg Tablets every night at 07/31/2018 bedtime Divalproex Sodium ER 2 PO QHS Unknown - 12/15/2015 500mg Tablets ER 24HR Tamsulosin HCL 1 by mouth Augustin Andino MD - 0.4mg every day 07/31/2018 Capsules Donepezil HCL Tamie Russo MD - 10mg 09/12/2015 Tablets Voltaren Unknown - 1% Gel 09/12/2015 Docqlace Unknown - 100mg Capsules 09/12/2015 Cyclobenzaprine HCL Guille Astudillo, - 10mg 09/12/2015 Tablets Diphenhydramine HCL Unknown - 25mg 09/12/2015 Capsules Hydrocodone-Ibuprofen Unknown - 09/12/2015 7.5-200mg Tablets [place] Carbonate Unknown - 300mg 09/12/2015 Capsules Oxycodone-Acetaminophe Alicia Govea, - n 09/12/2015 5-325mg Tablets Lorazepam Unknown - 0.5mg Tablets 09/12/2015 Proair HFA Unknown - 108(90Base) 05/10/2016 mcg/Act Aerosol Vesicare Unknown - 5mg Tablets 09/12/2015 Ibuprofen 1 by mouth Unknown - 600mg Tablets three times a 05/10/2016 day as needed Metaxalone 1 tablet by Unknown - 400mg Tablets nouth two 02/13/2017 times daily Tramadol HCL 2 tablets Unknown - 50mg Tablets every 8 hours 05/10/2016 as needed for pain Furosemide 2 by mouth Unknown - 20mg Tablets every morning, 05/10/2016 3 tablets in evening Vital Signs Date Vital Result Comment 02/25/2019 10:06am Height 67 inches 5'7" Weight 261.12 lb with shoes Heart Rate 110 /min right radial BP Systolic Sitting 136 mmHg ule reg cuff BP Diastolic Sitting 80 mmHg ule reg cuff BMI (Body Mass Index) 40.9 kg/m2 11/17/2018 10:47am Height 67 inches 5'7" Weight [...] Date Facility Test Result H/L Range Note Basic Metabolic 11/25/2018 [facility] Sodium 139 mmol/L Normal 135-145 [place] [address] [phone] Potassium 4.3 mmol/L Normal 3.5-5.0 Chloride 101 mmol/L Normal 101-111 Co2 Carbon Dioxide 32 mmol/L Normal 22-32 Anion Gap 6 mmol/L Normal 2-11 Glucose 92 mg/dL Normal 70-100 Blood Urea Nitrogen 18 mg/dL Normal 6-24 Creatinine 1.05 mg/dL Normal 0.67-1.17 BUN/Creatinine Ratio 17.1 Normal 8-20 Calcium 9.5 mg/dL Normal 8.6-10.3 Egfr Non- 69.8 >60 Egfr 84.5 >60 1 Laboratory test 09/26/2015 [facility] TSH (Thyroid 0.23 Low 0.34-5.60 2, 3 finding Stim Horm) ?IU/[place] [address] [phone] Free T4 (Free Thyroxine) 0.95 ng/dL Normal 0.61-1.12 4 Vitamin B12 340 pg/mL Normal 180-914 5 Folic Acid (Folate) > 20.00 ng/mL Normal >3.99 6 Methylmalonic Acid Mma 0.21 nmol/mL Normal <=0.40 7 Dulce (Antinuclear Antibodies) Negative Normal Negative 8 Erythrocyte Sed Rate 3 mm/Hr Normal 0-40 9 C Reactive Protein < 1.00 mg/L Normal < 5.00 10 Protein 09/26/2015 [facility] Total 7.1 Normal 6.3 - Electrophoresis Protein(Pep) g/dL 7.9 [place] [address] [phone] Albumin 3.7 g/dL Normal 3.4-4.7 Alpha-1 Globulin 0.3 g/dL Normal 0.1-0.3 Alpha-2 Globulin 0.9 g/dL Normal 0.6-1.0 Beta Globulin 0.9 g/dL Normal 0.7-1.2 Gamma Globulin 1.3 g/dL Normal 0.6-1.6 Albumin/Globulin Ratio 1.06 Normal Impression See Comment Normal 11 Laboratory test 09/26/2015 [facility] Hemoglobin A1c 5.8 % Normal Less than 12 finding (Glyco HGB) 6.0 [place] [address] [phone] Comp Metabolic 10/15/2007 [facility] One Over 0.[address] [place] [address] [phone] Anion Gap 6.0 mmol/L 2-11 13 Albumin/Globulin [...] Creatinine 1.1 mg/dL 0.5-1.4 Laboratory test 10/15/2007 [facility] D Dimer < 200 < 230 [address] Quantitative NG/[place] [address] [phone] BNP Evaluatr < 7.5 pg/mL Low 7.5-100 CPK (Creatine Kinase) 211 U/L High 0-200 C Reactive Protein < 0.5 mg/dL Less Than 0.5 Laboratory test 10/15/2007 [facility] Erythrocyte Sed 1 MM/HR 0-[address] [place] [address] [phone] CBC With Manual 10/15/2007 [facility] White Blood 5.2 CUMM 4.8-10.[address] [place] [address] [phone] Absolute Neutrophil Count 2.9 Atypical Lymph 4 [...] WDTH 13 % 10.5-15 Lipid Profile 10/15/2007 [facility] Cholesterol/HDL 4.40 1- 4.97 (Trig/Chol/HDL) [address] [address] [phone] Cholesterol 207 mg/dL High Less Than 200 15 Triglyceride 103 mg/dL 40-200 High Density Lipoprotein 47 mg/dL 40-60 Low Density Lipoprotein 139 mg/dL High Less Than 100 16 1 Because ethnic data is not always readily available, this report includes an eGFR for both -Americans and non- Americans. The National Kidney Disease Education Program (NKDEP) does not endorse the use of the MDRD equation for patients that are not between the ages of 18 and 70, are , have extremes of body size, muscle mass, or nutritional status, or are non- or non-. According to the National Kidney Foundation, irrespective of diagnosis, the stage of the disease is based on the level of kidney function: Stage Description GFR(mL/min/1.73 m(2)) 1 Kidney damage with normal or decreased GFR 90 2 Kidney damage with mild decrease in GFR 60-89 3 Moderate decrease in GFR 30-59 4 Severe decrease in GFR 15-29 5 Kidney failure <15 (or dialysis) 2 similar to TSH in 2007, free T4 normal 3 with immunofixation Copy Result to: GUILLE ASTUDILLO ([id number]) 4 with immunofixation Copy Result to: GUILLE ASTUDILLO ([id number]) 5 Normal Range 180 to 914 Indeterminate Range 145 to 180 Deficient Range <145 6 with immunofixation Copy Result to: GUILLE ASTUDILLO ([id number]) 7 Test Performed by: [address] [address] Radar Mechanic: Nathan Ruffin II, M.D., Ph.D. 8 with immunofixation Copy Result to: GUILLE ASTUDILLO ([id number]) 9 with immunofixation Copy Result to: GUILLE ASTUDILLO ([id number]) 10 Acute inflammation: >10.00 11 RESULT: No apparent monoclonal protein on serum electrophoresis. Test Performed by: [facility] [place] [address] Radar Mechanic: Nathan Ruffin II, M.D., Ph.D. 12 Therapeutic target for the treatment of diabetes Mellitus patients is <7% HBA1C, and in selective patients <6.0%.Please refer to [place] [employer] Diabetic care guidelines for further information. 13 Anion gap measurement may be of limited value in the presence of any alkalosis, especially in a combined acid base disorder. . 14 Please note: The following may produce a false positive D Dimer test: - Rheumatoid factor greater than 60 IU/ml - Plasma hemoglobin greater than 0.05 gm/dl - Bilirubin greater than 50 mg/dl - Lipids greater than 1000 mg/dl - FDP greater than 20 ug/ml . 15 Classification: Borderline High . 16 CALCULATED LDL APPROXIMATES THE VALUE OF A DIRECT LDL MEASUREMENT. Classification: Borderline High . Procedures Date Code Description Status 03/14/2017 87423 ECHO Transthoracic, Real-Time 2D With Doppler And Color Completed Flow 02/14/2017 53889 EKG Tracing & Interpretation Completed 10/31/2016 01052 Polysomnography Sleep Staging 4+ Parameters W/Cpap Completed 03/28/2016 68894 ECHO Transthoracic, Real-Time 2D With Doppler And Color Completed Flow 03/07/2016 00269 Treadmill Interp/Report Only Completed 03/07/2016 19679 Stress Test Supervsn W/Out I/R Completed 12/30/2015 63326 Treadmill Interp/Report Only Completed 12/30/2015 60682 Stress Test Supervsn W/Out I/R Completed 12/16/2015 16751 EKG Tracing & Interpretation Completed 10/10/2015 64690 EKG, Interpretation Only Completed 10/03/2015 15793 EKG, Interpretation Only Completed 12/30/2014 06522 ECHO Transthorasic Realtime 2D W Doppler & Color Flow Hosp Completed 07/08/2012 26189 EKG, Interpretation Only Completed 07/06/2012 66435 EKG, Interpretation Only Completed 06/09/2009 21523 EKG Tracing & Interpretation Completed 10/22/2007 24943 ECHO/Stress Completed 10/22/2007 39698 ECHO/Stress Completed 10/22/2007 06709 Stress Test Completed 10/09/2007 17098 EKG Tracing & Interpretation Completed 01/16/2007 41748 EKG Tracing & Interpretation Completed 01/16/2007 63836 EKG Tracing & Interpretation Completed 03/12/2006 88707 Color Doppler Completed 03/12/2006 99069 Pulse Doppler & Continuous Wave Completed 03/12/2006 76169 Echocardiogram Completed 03/12/2006 68681 Echocardiogram Completed 01/31/2006 92984 EKG Tracing & Interpretation Completed 01/05/2005 35057 EKG Tracing & Interpretation Completed 07/04/2004 86930 EKG Tracing & Interpretation Completed 06/14/2004 10829 EKG, Interpretation Only Completed 02/24/2004 45032 EKG Tracing & Interpretation Completed 09/08/2003 22236 Intro. Needle Or Intracath.,Vein Completed 09/08/2003 34362 IV Infusion For DX/Upt To 1 HR. Completed 09/08/2003 05743 Stress Test Completed 09/08/2003 74348 ECHO/Stress Completed 08/19/2003 30926 ECHO/Stress Completed 08/19/2003 27305 Stress Test Completed 05/09/2003 83182 EKG, Interpretation Only Completed 05/08/2003 54560 EKG, Interpretation Only Completed 05/03/2003 71972 EKG, Interpretation Only Completed 04/21/2003 30552 EKG Tracing & Interpretation Completed 04/09/2003 16297 EKG, Interpretation Only Completed Encounters Type Date Location Provider Dx Diagnosis Office Visit 02/25/2019 [facility] Reagan Espinoza, R22.43 Localized 10:15a Of Kristie Duran swelling, mass and lump, lower limb, bilateral Office Visit 11/17/2018 [facility] Dexter Clancy, G20 Parkinson's 10:45a Clinic Renee disease F31.9 Bipolar disorder, unspecified R29.6 Repeated falls Office Visit 10/29/2018 10:30a [facility] Reagan Adams R22.43 Localized Medicine Of Kristie Espinoza M.D. swelling, mass and lump, lower limb, bilateral Z68.41 Body mass index (BMI) 40.0-44.9, adult Office Visit 08/21/2018 [facility] Chidishon Aston, F31.9 Bipolar disorder, 1:30p Neurologic M.D. unspecified Services Of [facility] G20 Parkinson's disease Office Visit 05/05/2018 [facility] Dexter Clancy, R25.1 Tremor, 9:30a Neurologic M.DDelonte unspecified Services Of [facility] F31.9 Bipolar disorder, unspecified Office Visit 02/27/2018 1:00p Wound Care Teddy Barnes S81.801D Unspecified [place] [facility] [place] Anne wound, right lower leg, subs encntr I89.0 Lymphedema, not elsewhere classified I10 Essential (primary) hypertension Office Visit 02/20/2018 1:00p Wound Care Teddy Barnes S81.801A Unspecified [place] [facility] [place] Anne wound, right lower leg, initial encounter I89.0 Lymphedema, not elsewhere classified I10 Essential (primary) hypertension Office Visit 01/08/2018 [facility] Flakita Best, G20 Parkinson's 2:30p Clinic MD disease Office Visit 06/18/2017 [facility] Flakita Best, R29.6 Repeated falls 2:00p Clinic R25.1 Tremor, unspecified Office Visit 02/14/2017 Archana Jameson G47.33 Obstructive sleep 2:00p Cardiology Of Renee Mcmillan apnea (adult) [facility] (pediatric) E66.01 Morbid (severe) obesity due to excess calories E78.5 Hyperlipidemia, unspecified I71.9 Aortic aneurysm of unspecified site, without rupture I10 Essential (primary) hypertension Z68.41 Body mass index (BMI) 40.0-44.9, adult Office Visit 10/02/2016 1:00p Pulmonology And Salma G47.9 Sleep disorder, Sleep Services Of MD Jerri unspecified [facility] G47.33 Obstructive sleep apnea (adult) (pediatric) E66.01 Morbid (severe) obesity due to excess calories Office Visit 06/06/2016 [facility] R07.9 Chest pain, 12:27p Assoc,pc Ivaton, [employer]SE[employer]IC[employer] MAKER unspecified Hospitalists G47.33 Obstructive sleep apnea (adult) (pediatric) E78.5 Hyperlipidemia, unspecified I10 Essential (primary) hypertension Office Visit 05/09/2016 1:40p [facility] Qutaybeh S. E66.9 Obesity, Cardiology Renee Mcmillan unspecified I71.9 Aortic aneurysm of unspecified site, without rupture I10 Essential (primary) hypertension E78.5 Hyperlipidemia, unspecified Office Visit 12/16/2015 2:40p [facility] Qutaybchristine S. I10 Essential Renee Mcmillan (primary) hypertension F31.9 Bipolar disorder, unspecified G20 Parkinson's disease R60.9 Edema, unspecified R06.02 Shortness of breath E66.9 Obesity, unspecified I71.9 Aortic aneurysm of unspecified site, without rupture Office Visit 11/07/2015 Neurosurgery Teddy Diaz, M48.07 Spinal stenosis , 10:30a Services Of Kristie Duran lumbosacral region Office Visit 10/10/2015 [facility] Shadi R29.6 Repeated falls 2:57p Assoc,meng Pizarro M.D. 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 disease Hospitalists R26.9 Unspecified abnormalities of gait and mobility Office Visit 06/11/2015 [facility] Mitchell George G20 Parkinson's 8:33a Assoc,meng DAY M.D. disease Hospitalists R26.9 Unspecified abnormalities of gait and mobility Office Visit 05/13/2015 11:00a Orthopedic Cayetano S33.6xxA Sprain of Services Of Renee Nicole sacroiliac C.M.A. joint, initial encounter M54.32 Sciatica, left side Office Visit 01/27/2015 [facility] Michael, 333.90 Extrapyramidal 11:12a Assoc,pc N.P. Disease & Abnormal Hospitalists Movement Disorder Unspec 780.79 Malaise And Fatigue Other 724.2 Lumbago 296.80 Bipolar Disorder NOS Office Visit 01/26/2015 [facility] Michael, 333.90 Extrapyramidal 11:12a Assoc,pc N.P. Disease & Abnormal Hospitalists Movement Disorder Unspec 724.2 Lumbago 780.79 Malaise And Fatigue Other 296.80 Bipolar Disorder NOS [facility], 333.90 Extrapyramidal 11:12a Assoc,pc N.P. Disease & Abnormal Hospitalists Movement Disorder Unspec 780.79 Malaise And Fatigue Other 724.2 Lumbago 296.80 Bipolar Disorder NOS Office Visit 01/24/2015 [facility] Brandy SDelonte 333.90 Extrapyramidal 11:11a Assoc,pc Foster, N.P. Disease & Abnormal Hospitalists Movement Disorder Unspec 724.2 Lumbago 780.79 Malaise And Fatigue Other 296.80 Bipolar Disorder NOS Office Visit 01/23/2015 11:10a [facility] Assoc,meng Dubois, 724.2 Lumbago Hospitalists N.P. 780.79 Malaise And Fatigue Other 333.90 Extrapyramidal Disease & Abnormal Movement Disorder Unspec 296.80 Bipolar Disorder NOS Office Visit 01/22/2015 11:09a [facility] Brandy SDelonte 780.79 Malaise And Assoc,pc Foster, N.P. Fatigue Other Hospitalists 333.90 Extrapyramidal Disease & Abnormal Movement Disorder Unspec 724.2 Lumbago 296.80 Bipolar Disorder NOS Office Visit 01/21/2015 [facility], 780.79 Malaise And Assoc,pc N.P. Fatigue Other Hospitalists 724.2 Lumbago 333.90 Extrapyramidal Disease & Abnormal Movement Disorder Unspec 296.80 Bipolar Disorder NOS Office Visit 01/01/2015 10:21a [facility] Brandy S. 584.9 Acute Kidney Assoc,pc Foster, N.P. Failure, Hospitalists Unspecified 332.0 Paralysis Agitans 401.9 Hypertension Unspec 296.80 Bipolar Disorder NOS Office Visit 12/31/2014 10:20a [facility] Brandy S. 584.9 Acute Kidney Assoc,pc Silvino, N.P. Failure, Hospitalists Unspecified 332.0 Paralysis Agitans 401.9 Hypertension Unspec 296.80 Bipolar Disorder NOS Office Visit 12/30/2014 [facility] Tabatha 584.9 Acute Kidney 10:19a Assoc,pc Francheska, [employer]SE[employer]IC[employer] MAKER Failure, Hospitalists Unspecified 332.0 Paralysis Agitans 401.9 Hypertension Unspec 296.80 Bipolar Disorder NOS Office Visit 12/29/2014 10:18a [facility] Damaris Michael, 584.9 [facility] N.P. Failure, Hospitalists Unspecified 332.0 Paralysis Agitans 401.9 Hypertension Unspec 296.80 Bipolar Disorder NOS Office Visit 09/23/2014 Pulmonology And Moe HILL 780.53 Hypersomnia W/ 1:00p [facility]enee Nelson Sleep Apnea Pneumatic Jack Operator Unspecified Office Visit 03/30/2014 Neurosurgery Dylan J. 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 Serum [facility] Foster, N.P. Levels Abnormal Hospitalists Other Nonspec 790.5 Serum Enzyme Levels Abnormal Other Nonspec 786.51 Pain Precordial 786.51 Pain Precordial 824.8 FX Ankle Unspec Closed 296.50 Bipolar I Disorder Current Depressed NOS 296.50 Bipolar I Disorder Current Depressed NOS Office Visit 06/09/2009 10:00a [facility] Juan Carlos Barnes 278.01 Obesity Morbid Renee Lambert 780.79 Malaise And Fatigue Other Office Visit 10/09/2007 2:20p [facility] Juan Carlos F. 278.01 Obesity Morbid Renee Lambert 786.50 Pain Chest Unspec 302.72 Psychosexual Dysfunction W/ Inhibited Sexual Excitement 401.1 Hypertension Benign Office Visit 01/16/2007 2:40p [facility] Carlos Barnes 420.91 Pericarditis Cardiology Renee Lambert Idiopathic Acute 401.1 Hypertension Benign 302.72 Psychosexual Dysfunction W/ Inhibited Sexual Excitement 278.01 Obesity Morbid Office Visit 01/31/2006 2:20p [facility] Juan Carlos Barnes 786.50 Pain Chest Renee Lambert Unspec 401.1 Hypertension Benign 272.0 Hypercholesterolemia Pure Office Visit 01/05/2005 3:40p [facility] Juan Carlos FDelonte 786.50 Pain Ira Lambert M.D. Unspec Office Visit 07/04/2004 3:00p [facility] Juan Carlos FDelonte 786.50 Pain Ira Lambert M.D. Unspec 401.1 Hypertension Benign 272.0 Hypercholesterolemia Pure 278.01 Obesity Morbid Office Visit 02/24/2004 2:20p [facility] Juan Carlos FDelonte 786.59 Pain Ira Lambert M.D. Other 272.0 Hypercholesterolemia Pure 278.01 Obesity Morbid Office Visit 09/08/2003 11:30a [facility] Juan Carlos Barnes 786.59 Pain Ira Lambert M.D. Other Office Visit 08/19/2003 3:40p [facility] Juan Carlos FDelonte 786.59 Pain Ira Lambert M.D. Other 414.01 Coronary Atherosclerosis Unga 401.1 Hypertension Benign 278.00 Obesity Unspec Office Visit 04/21/2003 3:20p [facility] Juan Carlos FDelonte 786.59 Pain Ira Lambert M.D. Other 401.1 Hypertension Benign Plan of Treatment Future Appointment(s):03/06/2019 10:00 am - Reagan Espinoza M.D. at [facility]05/15/2019 11:45 am - Dexter Clancy M.D. 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 This is potentially causing the patient's left groin and lower extremity pain and edema. As I discussed with him, he potentially may realize some clinical improvement following stenting of these compressed veins. The compression will be confirmed with venography and intravascular ultrasound and can be stented once the compression is confirmed.As I discussedwith Sachin today and also on his prior clinic visit 10/29/18, one of the biggest risks of this procedure is that he will realize no clinical improvement following stenting.
[2019-04-02] MEDS: Iodixanol* (CONTRAST) 320 MG/ML 100 ML SDV IV ONE (08:37)
--- NOTE | 2019-04-02 08:44 | ED ---
Abdominal Pain/Male - HPI Summary HPI Summary: Patient is a 68-year-old male who presents emergency department for worsening abdominal pain times week and half. Patient notes pain is mostly located to the left side of his abdomen. He notes he has had similar pain in the past and a history of kidney stones. Patient denies chest pain, shortness breath, fever , vomiting, diarrhea, urinary symptoms. Past medical history of Parkinson's disease, bipolar. Symptoms are moderate in severity. No current modifying factors. - History of Current Complaint Chief Complaint: EDAbdPain Stated Complaint: ABD PAIN PER EMS Time Seen by Provider: 04/02/19 06:57 Hx Obtained From: Patient Pain Intensity: 7 - Allergies/Home Medications Allergies/Adverse Reactions: Allergies Allergy/AdvReac Type Severity Reaction Status Date / Time acetaminophen Allergy Unknown Verified 03/06/19 10:21 [From Darvocet-N] Reaction Details haloperidol [From Haldol] Allergy Leg Cramps Verified 03/06/19 10:21 oxycodone Allergy Rash Verified 03/06/19 10:21 propoxyphene Allergy Unknown Verified 03/06/19 10:21 Reaction Details zolpidem [From Ambien] Allergy Unknown Verified 03/06/19 10:21 Reaction Details PMH/Surg Hx/FS Hx/Imm Hx Previously Healthy: Yes Endocrine/Hematology History: Denies: Hx Anticoagulant Therapy, Hx Blood Disorders, Hx Blood Transfusions, Hx Bone Marrow Disease, Hx Diabetes, Hx Systemic Lupus Erythematosus, Hx Sickle Cell Disease, Hx Thyroid Disease, Hx Anemia, Hx Unexplained Bleeding, Other Endocrine/Hematological Disorders Cardiovascular History: Reports: Hx Coronary Artery Disease, Hx Hypercholesterolemia, Hx Hypertension, Other Cardiovascular Problems/Disorders - apparent venous insufficiency Denies: Hx Aneurysm, Hx Angina, Hx Angioplasty, Hx Auto Implanted Cardiovert Defib, Hx Cardiac Arrest, Hx Cardiomegaly, Hx Congenital Heart Disease, Hx Congestive Heart Failure, Hx Deep Vein Thrombosis, Hx Hypotension, Hx Myocardial Infarction, Hx Pacemaker/ICD, Hx Peripheral Vascular Disease, Hx Rheumatic Fever, Hx Syncope, Hx Valvular Heart Disease Respiratory History: Reports: Hx Asthma, Hx Seasonal Allergies, Hx Sleep Apnea Denies: Hx Chronic Bronchitis, Hx Chronic Obstructive Pulmonary Disease (COPD ), Hx Cystic Fibrosis, Hx Lung Cancer, Hx Pleural Effusion, Hx Pneumonia, Hx Pulmonary Edema, Hx Pulmonary Embolism, Other Respiratory Problems/Disorders GI History: Reports: Hx Gastroesophageal Reflux Disease, Hx Irritable Bowel, Other GI Disorders - Chronic constipation Denies: Hx Cirrhosis, Hx Crohn's Disease, Hx Diverticulosis, Hx Gall Bladder Disease, Hx Gastrointestinal Bleed, Hx Hiatal Hernia, Hx Jaundice, Hx Obstructive Bowel, Hx Ileostomy, Hx Pyloric Stenosis, Hx Ulcer History: Reports: Hx Acute Renal Failure - partial nephrectomy, Hx Benign Prostatic Hyperplasia, Hx Kidney Stones, Other Problems/Disorders - has only one functioning kidney Denies: Hx Chronic Renal Failure, Hx Dialysis, Hx Kidney Infection, Hx Renal Disease Musculoskeletal History: Reports: Hx Arthritis, Hx Back Problems - DJD, L-spine stenosis, Hx Tendonitis Denies: Hx Bursitis, Hx Congenital Bone Abnormalities, Hx Fibromyalgia, Hx Gout, Hx Orthopedic Injury, Hx Osteoporosis, Hx Scoliosis, Other Musculoskeletal History Sensory History: Reports: Hx Vision Problem Denies: Hx Cataracts, Hx Contacts or Glasses, Hx Eye Injury, Hx Eye Prosthesis, Hx Glaucoma, Hx Macular Degeneration, Hx Deafness, Hx Hearing Aid, Hx Hearing Problem, Other Sensory Impairments Opthamlomology History: Reports: Hx Vision Problem Denies: Hx Cataracts, Hx Contacts or Glasses, Hx Eye Injury, Hx Eye Prosthesis, Hx Glaucoma, Hx Macular Degeneration, Other Sensory Impairments Neurological History: Reports: Hx Dementia, Other Neuro Impairments/Disorders - Bipolar, Parkinsons Denies: Hx Developmental Delay, Hx Headaches, Hx Migraine, Hx Seizures, Hx Spinal Cord Injury, Hx Transient Ischemic Attacks (TIA) Psychiatric History: Reports: Hx Anxiety, Hx Depression, Hx Inpatient Treatment , Hx Community Mental Health Tx, Hx Bipolar Disorder Denies: Hx Attention Deficit Hyperactivity Disorder, Hx Eating Disorder, Hx Panic Disorder, Hx Post Traumatic Stress Disorder, Hx Schizophrenia, Hx Suicide Attempt, Hx of Violent Episodes Against Others, Hx Substance Abuse, Other Psychiatric Issues/Disorders - Cancer History Hx Chemotherapy: No Hx Radiation Therapy: No - Surgical History Surgery Procedure, Year, and Place: lt PARTIAL nephrectomy age 10 ruptured kidney sports related,. Nose surgery from being broken. heart [place] [facility] [place] Hx Anesthesia Reactions: No - Immunization History Date of Tetanus Vaccine: unknown Date of Influenza Vaccine: 2011 Infectious Disease History: No Infectious Disease History: Denies: Hx Clostridium Difficile, Hx Hepatitis, Hx Human Immunodeficiency Virus (HIV), Hx of Known/Suspected MRSA, Hx Shingles, Hx Tuberculosis, Hx Known/ Suspected VRE, Traveled Outside the [place] in Last 30 Days - Family History Known Family History: Positive: None, Cardiac Disease, Hypertension, Diabetes, Non-Contributory - Social History Occupation: Retired Lives: Assisted Living Alcohol Use: None Hx Substance Use: No Substance Use Type: Reports: None Hx Tobacco Use: No Smoking Status (MU): Never Smoked Tobacco Have You Smoked in the Last Year: No Review of Systems Constitutional: Negative Negative: Fever, Chills Cardiovascular: Negative Negative: Palpitations, Chest Pain Respiratory: Negative Negative: Shortness Of Breath, Cough Positive: Abdominal Pain. Negative: Vomiting, Diarrhea, Nausea Genitourinary: Negative Negative: dysuria Neurological: Negative All Other Systems Reviewed And Are Negative: Yes Physical Exam Triage Information Reviewed: Yes Vital Signs On Initial Exam: Initial Vitals Temp Pulse Resp BP Pulse Ox 96.9 F 86 18 145/104 99 04/02/19 07:05 04/02/19 07:05 04/02/19 07:05 04/02/19 07:05 04/02/19 07:05 Vital Signs Reviewed: Yes Appearance: Positive: Well-Appearing - Pt. lying on bed in NAD. Appears older than stated age. Pleasant. Skin: Positive: Warm, Dry Head/Face: Positive: Normal Head/Face Inspection Eyes: Positive: Normal, EOMI Neck: Positive: Supple Respiratory/Lung Sounds: Positive: Clear to Auscultation, Breath Sounds Present Cardiovascular: Positive: Normal, RRR Abdomen Description: Positive: Other: - Obese, distended. Abd. is soft with diffuse tenderness in all quadrants. Musculoskeletal: Positive: Normal, Strength/ROM Intact Neurological: Positive: Normal, CN Intact II-III Psychiatric: Positive: Affect/Mood Appropriate Diagnostics - Vital Signs Vital Signs Temp Pulse Resp BP Pulse Ox 04/02/19 07:05 96.9 F 86 18 145/104 99 - Laboratory Lab Results: Lab Results 04/02/19 04/02/19 04/02/19 Range/Units 07:08 07:26 07:26 WBC 5.6 (3.5-10.8) 10^3/uL RBC 4.66 (4.18-5.48) 10^6 /uL Hgb 15.1 (14.0-18.0) g/dL Hct 43 (42-52) % MCV 93 (80-94) fL MCH 32 H (27-31) pg MCHC 35 (31-36) g/dL RDW 14 (10-15) % Plt Count 152 (150-450) 10^3/uL MPV 7.5 (7.4-10.4) fL Neut % (Auto) 56.0 % Lymph % (Auto) 29.2 % [place] % (Auto) 11.8 % Eos % (Auto) 2.6 % Baso % (Auto) 0.4 % Absolute Neuts (auto) 3.1 (1.5-7.7) 10^3/ul Absolute Lymphs (auto) 1.6 (1.0-4.8) 10^3/ul Absolute Monos (auto) 0.7 (0-0.8) 10^3/ul Absolute Eos (auto) 0.1 (0-0.6) 10^3/ul Absolute Basos (auto) 0.0 (0-0.2) 10^3/ul Absolute Nucleated RBC 0.0 10^3/ul Nucleated RBC % 0.1 Sodium 138 (135-145) mmol/L Potassium 4.4 (3.5-5.0) mmol/L Chloride 101 (101-111) mmol/L Carbon Dioxide 34 H (22-32) mmol/L Anion Gap 3 (2-11) mmol/L BUN 23 (6-24) mg/dL Creatinine 1.05 (0.67-1.17) mg/dL Est GFR ( Amer) 84.5 (>60) Est GFR (Non-Af Amer) 69.8 (>60) BUN/Creatinine Ratio 21.9 H (8-20) Glucose 104 H (70-100) mg/dL Lactic Acid (0.5-2.0) mmol/L Calcium 9.6 (8.6-10.3) mg/dL Magnesium 2.1 (1.9-2.7) mg/dL Total Bilirubin 0.50 (0.2-1.0) mg/dL AST 12 L (13-39) U/L ALT 5 L (7-52) U/L Alkaline Phosphatase 51 (34-104) U/L Troponin I 0.00 (<0.04) ng/mL C-Reactive Protein 1.71 (<8.01) mg/L Total Protein 6.5 (6.4-8.9) g/dL Albumin 4.1 (3.2-5.2) g/dL Globulin 2.4 (2-4) g/dL Albumin/Globulin Ratio 1.7 (1-3) Lipase 19 (11.0-82.0) U/L Urine Color Yellow Urine Appearance Clear Urine pH 6.0 (5-9) Ur Specific [place] 1.023 (1.010-1.030) Urine Protein Negative (Negative) Urine Ketones Trace A (Negative) Urine Blood Negative (Negative) Urine Nitrate Negative (Negative) Urine Bilirubin Negative (Negative) Urine Urobilinogen Negative (Negative) Ur Leukocyte Esterase Negative (Negative) Urine Glucose Negative (Negative) 04/02/19 Range/Units 07:26 WBC (3.5-10.8) 10^3/uL RBC (4.18-5.48) 10^6 /uL Hgb (14.0-18.0) g/dL Hct (42-52) % MCV (80-94) fL MCH (27-31) pg MCHC (31-36) g/dL RDW (10-15) % Plt Count (150-450) 10^3/uL MPV (7.4-10.4) fL Neut % (Auto) % Lymph % (Auto) % [place] % (Auto) % Eos % (Auto) % Baso % (Auto) % Absolute Neuts (auto) (1.5-7.7) 10^3/ul Absolute Lymphs (auto) (1.0-4.8) 10^3/ul Absolute Monos (auto) (0-0.8) 10^3/ul Absolute Eos (auto) (0-0.6) 10^3/ul Absolute Basos (auto) (0-0.2) 10^3/ul Absolute Nucleated RBC 10^3/ul Nucleated RBC % Sodium (135-145) mmol/L Potassium (3.5-5.0) mmol/L Chloride (101-111) mmol/L Carbon Dioxide (22-32) mmol/L Anion Gap (2-11) mmol/L BUN (6-24) mg/dL Creatinine (0.67-1.17) mg/dL Est GFR ( Amer) (>60) Est GFR (Non-Af Amer) (>60) BUN/Creatinine Ratio (8-20) Glucose (70-100) mg/dL Lactic Acid 1.8 (0.5-2.0) mmol/L Calcium (8.6-10.3) mg/dL Magnesium (1.9-2.7) mg/dL Total Bilirubin (0.2-1.0) mg/dL AST (13-39) U/L ALT (7-52) U/L Alkaline Phosphatase (34-104) U/L Troponin I (<0.04) ng/mL C-Reactive Protein (<8.01) mg/L Total Protein (6.4-8.9) g/dL Albumin (3.2-5.2) g/dL Globulin (2-4) g/dL Albumin/Globulin Ratio (1-3) Lipase (11.0-82.0) U/L Urine Color Urine Appearance Urine pH (5-9) Ur Specific [place] (1.010-1.030) Urine Protein (Negative) Urine Ketones (Negative) Urine Blood (Negative) Urine Nitrate (Negative) Urine Bilirubin (Negative) Urine Urobilinogen (Negative) Ur Leukocyte Esterase (Negative) Urine Glucose (Negative) Result Diagrams: 04/02/19 07:26 04/02/19 07:26 Lab Statement: Any lab studies that have been ordered have been reviewed, and results considered in the medical decision making process. Abdominal Pain Male Course/Dx - Course Course Of Treatment: Pt. with diffuse abd. pain. He is afebrile and well appearing. Benign abd. exam. Pt. declines pain medication. Labs and u/a unremarkable. CT scan shows chronic changes without acute findngs. Results discussed. Pt. notes he has issues with constipation and takes miralax on a daily basis. Will dc home to [facility] with PCP. Will return to ER if sxs change or worsen. Pt understands and agrees with plan. - Diagnoses Differential Diagnosis/HQI/PQRI: Appendicitis, Constipation, Diverticulitis, Hepatitis, Pancreatitis, Renal Colic Provider Diagnoses: Abdominal pain Discharge ED - Sign-Out/Discharge Documenting (check all that apply): Patient Departure Patient Received Moderate/Deep Sedation with Procedure: No - Discharge Plan Condition: Good Disposition: HOME Patient Education Materials: Acute Abdominal Pain (ED) Referrals: Guille Astudillo MD [Primary Care Provider] - Additional Instructions: Follow up with your PCP in 2-3 days Increase fluids and fiber in diet Continue home medications as directed Return to ER if symptoms change or worsen - Billing Disposition and Condition Condition: GOOD Disposition: Home
[2019-04-02 10:17] VITALS: BP 177/86
== END 2019-04-02 10:15 | disposition home or self-care (01) ==
LOC: ED 06:53
DX: R10.9 Unspecified abdominal pain (principal); K76.0 Fatty (change of) liver, not elsewhere classified; G20 Parkinson's disease; F31.9 Bipolar disorder, unspecified; I25.10 Atherosclerotic heart disease of native coronary artery without angina pectoris; E78.00 Pure hypercholesterolemia, unspecified; I10 Essential (primary) hypertension; J45.909 Unspecified asthma, uncomplicated; K21.9 Gastro-esophageal reflux disease without esophagitis; F41.9 Anxiety disorder, unspecified; Z90.5 Acquired absence of kidney; Z79.899 Other long term (current) drug therapy; Z88.6 Allergy status to analgesic agent; Z88.5 Allergy status to narcotic agent; Z88.8 Allergy status to other drugs, medicaments and biological substances
CPT/HCPCS: 36415; 74177; 80053; 81003; 83605; 83690; 83735; 84484; 85025; 86140; 93005; 96360; 96361; 99283; Q9967

== ENCOUNTER → 2019-05-22 09:02 | Day surgery (SDC) | payer MEDICARE, MEDICAID ==
[~2019-05-22 09:02] MED LIST: Flumazenil* 0.1 MG/ML 5 ML MDV ONE; Heparin 2 UNITS/ML IVPREMIX* 2,000 ML IV ONE; Heparin(*) 1000 UNIT/ML 10 ML VIAL CATH LAB IV ONE; Iodixanol 320 (CONTRAST) 100 ML SDV ONE; Iohexol 350 (CONTRAST) 200 ML MDV IV ONE; Lidocaine 1% INJ* 10 MG/ML 30 ML SDV ONE; Midazolam* 1 MG/ML 5 ML VIAL (5 MG) ONE; Naloxone* 0.4 MG/ML 1 ML VIAL ONE; fentaNYL* 50 MCG/ML 2 ML VIAL (100 MCG VIAL) ONE
[2019-05-22 11:07] LABS: Activated Partial Thrombo Time 38.5 seconds (26.0-38.0); INR 0.94 (0.82-1.09)
[2019-05-22 12:11] LABS: Calcium 9.7 mg/dL (8.6-10.3); EGFR African American 93.7 (>60); EGFR Non-African American 77.4 (>60); Potassium 4.2 mmol/L (3.5-5.0)
[2019-05-22 16:44] VITALS: BP 140/93
== END | disposition home or self-care (01) ==
LOC: CHICATH 09:02
PROVIDERS: ATTEND Radiology Diagnostic Radiology
DX: I87.1 Compression of vein (principal); M79.89 Other specified soft tissue disorders; G20 Parkinson's disease; E66.9 Obesity, unspecified; Z68.41 Body mass index [BMI] 40.0-44.9, adult; G47.33 Obstructive sleep apnea (adult) (pediatric); F31.9 Bipolar disorder, unspecified; F41.8 Other specified anxiety disorders
CPT/HCPCS: 36415; 37252; 75825; 76937; 80048; 85610; 85730; 99156; 99157; C1725; C1753; C1769; C1887; J1644; J2250; J2310; J3010

== ENCOUNTER 2021-03-09 18:03 | Inpatient (IN) ==
[2021-03-09 19:55] LABS: ABS Lymphocytes 0.6 10^3/ul (1.0-4.8); ABS Neutrophils 4.9 10^3/ul (1.5-7.7); Eosinophil % 0.4 %; Hematocrit 43 % (42-52); Hemoglobin 14.5 g/dL (14.0-18.0); Lymphocyte % 9.8 %; Mean Corpuscular HGB Conc 34 g/dL (31-36); Mean Corpuscular Hemoglobin 32 pg (27-31); Mean Corpuscular Volume 96 fL (80-94); Mean Platelet Volume 7.2 fL (7.4-10.4); Platelet Count 179 10^3/uL (150-450); Red Cell Distribution Width 14 % (10-15); White Blood Count 6.6 10^3/uL (3.5-10.8)
[2021-03-09 20:08] LABS: Albumin/Globulin Ratio 1.5 (1-3); Calcium 9.1 mg/dL (8.6-10.3); EGFR African American 110.2 (>60); EGFR Non-African American 91.1 (>60); Globulin 2.6 g/dL (2-4); Potassium 3.8 mmol/L (3.5-5.0); Total Bilirubin 0.5 mg/dL (0.2-1.0); Total Protein 6.6 g/dL (6.4-8.9)
[2021-03-09] MEDS ORDERED: NS 0.9% 500 ml BAG 500 ML IV ONE (21:20)
[2021-03-09] MEDS ORDERED: Iohexol 350 (CONTRAST) 500 ML MDV IV ONE (21:30)
[2021-03-09 22:28] LABS: Urine Appearance Clear; Urine Bilirubin Negative (Negative); Urine Blood Negative (Negative); Urine Color Yellow; Urine Glucose Negative (Negative); Urine Ketones Trace (Negative); Urine Nitrite Negative (Negative); Urine Protein Negative (Negative); Urine Specific Gravity 1.021 (1.002-1.030); Urine Urobilinogen Negative (Negative)
[2021-03-09 22:33] LABS: Activated Partial Thrombo Time 32.9 seconds (26.0-38.0); INR 1.05 (0.86-1.15)
[2021-03-09 22:47] LABS: Rapid COVID-19 Molecular Detected (Undetected)
[2021-03-09 23:00] LABS: Ferritin 117.3 ng/mL (24-336)
[2021-03-09 23:09] LABS: C Reactive Protein 17.76 mg/L (<8.01)
[2021-03-10] MEDS ORDERED: Calcium Carb (TUMS) 500 mg CHEW TAB PO PRN (03:56)
[2021-03-10] MEDS ORDERED: Albuterol HFA INHALER 8 gm MDI INH PRN (03:56)
[2021-03-10] MEDS: Enoxaparin 40 MG/0.4 ML SYR SUBCUT SCH (05:43)
[2021-03-10 08:12] LABS: Hematocrit 42 % (42-52); Hemoglobin 14.2 g/dL (14.0-18.0); Mean Corpuscular HGB Conc 34 g/dL (31-36); Mean Corpuscular Hemoglobin 33 pg (27-31); Mean Corpuscular Volume 96 fL (80-94); Platelet Count 167 10^3/uL (150-450); Red Blood Count 4.35 10^6 /uL (4.18-5.48); Red Cell Distribution Width 14 % (10-15); White Blood Count 6.4 10^3/uL (3.5-10.8)
[2021-03-10] MEDS: Carbidopa/Levodop 25/100 MG TAB PO SCH ×2 (08:29→21:08)
[2021-03-10] MEDS: Aspirin EC 81 mg TAB.EC (enteric coated) PO SCH (08:29)
[2021-03-10 10:38] LABS: EGFR African American 93.2 (>60)
[2021-03-10] MEDS: Polyethylene Glycol 3350 17 GM PACKET PO SCH ×2 (12:57→21:07)
[2021-03-10] MEDS: Mirabegron 50 mg ER TAB (NF) PO SCH (13:06)
[2021-03-11] MEDS: Enoxaparin 40 MG/0.4 ML SYR SUBCUT SCH ×2 (03:58→04:23)
[2021-03-11] MEDS: Nystatin TOP POWDER 15 GM BTL TOPICAL SCH ×4 (03:58→22:10)
[2021-03-11 07:35] LABS: ABS Lymphocytes 0.9 10^3/ul (1.0-4.8); ABS Neutrophils 3.1 10^3/ul (1.5-7.7); Eosinophil % 0.1 %; Hematocrit 40 % (42-52); Hemoglobin 13.7 g/dL (14.0-18.0); Lymphocyte % 17.4 %; Mean Corpuscular HGB Conc 35 g/dL (31-36); Mean Corpuscular Hemoglobin 33 pg (27-31); Mean Corpuscular Volume 94 fL (80-94); Mean Platelet Volume 6.8 fL (7.4-10.4); Nucleated Red Blood Cells % 0.1; Platelet Count 159 10^3/uL (150-450); Red Blood Count 4.21 10^6 /uL (4.18-5.48); Red Cell Distribution Width 14 % (10-15); White Blood Count 5.1 10^3/uL (3.5-10.8)
[2021-03-11 07:49] LABS: INR 1.12 (0.86-1.15)
[2021-03-11 07:52] LABS: Calcium 8.3 mg/dL (8.6-10.3); EGFR African American 100.4 (>60); EGFR Non-African American 82.9 (>60); Potassium 3.9 mmol/L (3.5-5.0)
[2021-03-11] MEDS: Carbidopa/Levodop 25/100 MG TAB PO SCH ×2 (08:51→22:09)
[2021-03-11] MEDS: Aspirin EC 81 mg TAB.EC (enteric coated) PO SCH (08:51)
[2021-03-11] MEDS: Mirabegron 50 mg ER TAB (NF) PO SCH (08:53)
[2021-03-11] MEDS: Polyethylene Glycol 3350 17 GM PACKET PO SCH ×2 (09:43→22:07)
[2021-03-12] MEDS: Enoxaparin 40 MG/0.4 ML SYR SUBCUT SCH (05:59)
[2021-03-12] MEDS ORDERED: NS 0.9% 1000 ml BAG 1,000 ML IV SCH (08:30)
[2021-03-12] MEDS: PTO:Mirabegron 50 mg ER TAB (NF) PO SCH (09:05)
[2021-03-12] MEDS: Aspirin EC 81 mg TAB.EC (enteric coated) PO SCH (09:05)
[2021-03-12] MEDS: Carbidopa/Levodop 25/100 MG TAB PO SCH ×2 (09:06→22:00)
[2021-03-12] MEDS: Nystatin TOP POWDER 15 GM BTL TOPICAL SCH ×3 (09:06→22:00)
[2021-03-12] MEDS: Polyethylene Glycol 3350 17 GM PACKET PO SCH ×2 (09:06→22:02)
[2021-03-12] MEDS: Pantoprazole VIAL 40 MG VIAL IV SCH ×2 (09:11→22:00)
[2021-03-12 09:23] LABS: ABS Lymphocytes 0.6 10^3/ul (1.0-4.8); ABS Monocytes 0.6 10^3/ul (0-0.8); Hematocrit 46 % (42-52); Hemoglobin 15.5 g/dL (14.0-18.0); Lymphocyte % 7.7 %; Mean Corpuscular HGB Conc 34 g/dL (31-36); Mean Corpuscular Hemoglobin 32 pg (27-31); Mean Corpuscular Volume 95 fL (80-94); Mean Platelet Volume 6.9 fL (7.4-10.4); Platelet Count 166 10^3/uL (150-450); Red Blood Count 4.84 10^6 /uL (4.18-5.48); Red Cell Distribution Width 14 % (10-15); White Blood Count 7.2 10^3/uL (3.5-10.8)
[2021-03-12 09:42] LABS: Albumin 3.8 g/dL (3.2-5.2); Albumin/Globulin Ratio 1.3 (1-3); C Reactive Protein 125.47 mg/L (<8.01); Calcium 8.7 mg/dL (8.6-10.3); Direct Bilirubin 0.1 mg/dL (0.03-0.18); EGFR African American 113.3 (>60); EGFR Non-African American 93.7 (>60); Globulin 2.9 g/dL (2-4); Indirect Bilirubin 0.5 mg/dL (0.3-1.0); Magnesium 1.9 mg/dL (1.9-2.7); Phosphorus 3.3 mg/dL (2.5-5.0); Potassium 3.9 mmol/L (3.5-5.0); Total Bilirubin 0.6 mg/dL (0.2-1.0); Total Protein 6.7 g/dL (6.4-8.9)
[2021-03-12 09:46] LABS: INR 1.11 (0.86-1.15)
[2021-03-12 15:07] LABS: Hematocrit 44 % (42-52); Hemoglobin 15.2 g/dL (14.0-18.0)
[2021-03-12] MEDS: Ondansetron 4 mg VIAL 2 MG/ML 2 ml VIAL IV PRN (15:57)
[2021-03-12 23:47] LABS: Hematocrit 43 % (42-52); Hemoglobin 14.7 g/dL (14.0-18.0)
[2021-03-13 06:14] LABS: Hematocrit 42 % (42-52); Hemoglobin 14.4 g/dL (14.0-18.0)
[2021-03-13] MEDS: Pantoprazole VIAL 40 MG VIAL IV SCH (08:34)
[2021-03-13] MEDS: Carbidopa/Levodop 25/100 MG TAB PO SCH ×2 (08:34→20:20)
[2021-03-13] MEDS: Polyethylene Glycol 3350 17 GM PACKET PO SCH ×2 (08:34→20:17)
[2021-03-13] MEDS: PTO:Mirabegron 50 mg ER TAB (NF) PO SCH (08:35)
[2021-03-13] MEDS: Nystatin TOP POWDER 15 GM BTL TOPICAL SCH ×3 (09:17→20:19)
[2021-03-14 08:03] LABS: ABS Monocytes 0.8 10^3/ul (0-0.8); Eosinophil % 0.3 %; Hematocrit 43 % (42-52); Lymphocyte % 14.7 %; Mean Corpuscular HGB Conc 35 g/dL (31-36); Mean Corpuscular Hemoglobin 33 pg (27-31); Mean Corpuscular Volume 94 fL (80-94); Nucleated Red Blood Cells % 0.1; Platelet Count 157 10^3/uL (150-450); Red Cell Distribution Width 13 % (10-15); White Blood Count 6.8 10^3/uL (3.5-10.8)
[2021-03-14 08:17] LABS: Calcium 8.7 mg/dL (8.6-10.3); EGFR African American 99.1 (>60); EGFR Non-African American 81.9 (>60); Potassium 3.4 mmol/L (3.5-5.0)
[2021-03-14] MEDS ORDERED: Potassium Chloride LIQUID 20 MEQ/15 ML LIQUID PO ONE (08:54)
[2021-03-14] MEDS: Carbidopa/Levodop 25/100 MG TAB PO SCH ×2 (09:40→20:35)
[2021-03-14] MEDS: Nystatin TOP POWDER 15 GM BTL TOPICAL SCH ×3 (09:44→20:35)
[2021-03-14] MEDS: Polyethylene Glycol 3350 17 GM PACKET PO SCH ×2 (09:45→20:34)
[2021-03-14] MEDS: PTO:Mirabegron 50 mg ER TAB (NF) PO SCH (09:52)
[2021-03-15 06:42] LABS: ABS Lymphocytes 1.2 10^3/ul (1.0-4.8); ABS Monocytes 0.9 10^3/ul (0-0.8); ABS Neutrophils 5.6 10^3/ul (1.5-7.7); Eosinophil % 0.6 %; Hematocrit 43 % (42-52); Hemoglobin 14.8 g/dL (14.0-18.0); Lymphocyte % 15.1 %; Mean Corpuscular HGB Conc 35 g/dL (31-36); Mean Corpuscular Hemoglobin 32 pg (27-31); Mean Corpuscular Volume 93 fL (80-94); Mean Platelet Volume 7.3 fL (7.4-10.4); Nucleated Red Blood Cells % 0.1; Platelet Count 139 10^3/uL (150-450); Red Blood Count 4.57 10^6 /uL (4.18-5.48); Red Cell Distribution Width 14 % (10-15); White Blood Count 7.7 10^3/uL (3.5-10.8)
[2021-03-15] MEDS: Nystatin TOP POWDER 15 GM BTL TOPICAL SCH ×3 (09:58→19:56)
[2021-03-15] MEDS: Carbidopa/Levodop 25/100 MG TAB PO SCH ×2 (09:58→19:54)
[2021-03-15] MEDS: Polyethylene Glycol 3350 17 GM PACKET PO SCH ×2 (09:58→19:56)
[2021-03-15] MEDS: PTO:Mirabegron 50 mg ER TAB (NF) PO SCH (09:59)
[2021-03-15] MEDS ORDERED: Remdesivir 100 mg Vial 200 MG in NS 0.9% 250 ml 210 ML IV ONE (20:00)
[2021-03-16 07:18] LABS: ABS Lymphocytes 0.8 10^3/ul (1.0-4.8); ABS Monocytes 0.5 10^3/ul (0-0.8); Eosinophil % 0.1 %; Hematocrit 44 % (42-52); Lymphocyte % 14.6 %; Mean Corpuscular HGB Conc 35 g/dL (31-36); Mean Corpuscular Hemoglobin 33 pg (27-31); Mean Corpuscular Volume 94 fL (80-94); Mean Platelet Volume 7.4 fL (7.4-10.4); Nucleated Red Blood Cells % 0.1; Platelet Count 146 10^3/uL (150-450); Red Blood Count 4.62 10^6 /uL (4.18-5.48); Red Cell Distribution Width 14 % (10-15); White Blood Count 5.3 10^3/uL (3.5-10.8)
[2021-03-16 07:27] LABS: Albumin 3.4 g/dL (3.2-5.2); Calcium 9.1 mg/dL (8.6-10.3); EGFR African American 94.3 (>60); EGFR Non-African American 77.9 (>60); Globulin 3.4 g/dL (2-4); Potassium 3.9 mmol/L (3.5-5.0); Total Bilirubin 0.6 mg/dL (0.2-1.0); Total Protein 6.8 g/dL (6.4-8.9)
[2021-03-16] MEDS: Carbidopa/Levodop 25/100 MG TAB PO SCH ×2 (09:02→20:42)
[2021-03-16] MEDS: PTO:Mirabegron 50 mg ER TAB (NF) PO SCH (09:24)
[2021-03-16] MEDS: Nystatin TOP POWDER 15 GM BTL TOPICAL SCH ×3 (09:45→20:46)
[2021-03-16] MEDS: Polyethylene Glycol 3350 17 GM PACKET PO SCH ×2 (11:22→20:46)
[2021-03-16] MEDS: Remdesivir 100 mg Vial 100 MG in NS 0.9% 250 ml 230 ML IV SCH (20:27)
[2021-03-16] MEDS: Amoxicillin/Clavul 875/125 TAB (Augmentin 875 tab) PO SCH (20:40)
[2021-03-17 07:09] LABS: Albumin 3.4 g/dL (3.2-5.2); Calcium 9.2 mg/dL (8.6-10.3); EGFR Non-African American 85.1 (>60); Globulin 3.5 g/dL (2-4); Potassium 3.9 mmol/L (3.5-5.0); Total Bilirubin 0.6 mg/dL (0.2-1.0); Total Protein 6.9 g/dL (6.4-8.9)
[2021-03-17] MEDS: Amoxicillin/Clavul 875/125 TAB (Augmentin 875 tab) PO SCH ×2 (08:46→22:20)
[2021-03-17] MEDS: Carbidopa/Levodop 25/100 MG TAB PO SCH ×2 (08:47→22:23)
[2021-03-17] MEDS: PTO:Mirabegron 50 mg ER TAB (NF) PO SCH (08:49)
[2021-03-17] MEDS: Nystatin TOP POWDER 15 GM BTL TOPICAL SCH ×3 (08:51→22:27)
[2021-03-17] MEDS: Polyethylene Glycol 3350 17 GM PACKET PO SCH ×2 (09:18→23:20)
[2021-03-17] MEDS: Remdesivir 100 mg Vial 100 MG in NS 0.9% 250 ml 230 ML IV SCH (22:20)
[2021-03-18 06:43] LABS: ALT 9 U/L (7-52); Albumin 3.4 g/dL (3.2-5.2); Albumin/Globulin Ratio 0.9 (1-3); Alkaline Phosphatase 49 U/L (35-149); Blood Urea Nitrogen 45 mg/dL (6-24); CO2 Carbon Dioxide 26 mmol/L (22-32); Calcium 9.4 mg/dL (8.6-10.3); Chloride 96 mmol/L (101-111); EGFR African American 105.8 (>60); EGFR Non-African American 87.4 (>60); Globulin 3.7 g/dL (2-4); Glucose 167 mg/dL (70-100); Sodium 134 mmol/L (135-145); Total Protein 7.1 g/dL (6.4-8.9)
[2021-03-18 06:53] LABS: Anion Gap 12 mmol/L (2-11)
[2021-03-18] MEDS: Carbidopa/Levodop 25/100 MG TAB PO SCH ×2 (09:50→22:18)
[2021-03-18] MEDS: Amoxicillin/Clavul 875/125 TAB (Augmentin 875 tab) PO SCH ×2 (09:50→22:20)
[2021-03-18] MEDS: PTO:Mirabegron 50 mg ER TAB (NF) PO SCH (09:51)
[2021-03-18] MEDS: Polyethylene Glycol 3350 17 GM PACKET PO SCH ×2 (10:01→23:08)
[2021-03-18] MEDS: Nystatin TOP POWDER 15 GM BTL TOPICAL SCH ×3 (10:57→22:17)
[2021-03-18] MEDS: guaiFENesin 100 mg/5 ml LIQ unit dose cup PO PRN ×2 (15:08→22:23)
[2021-03-18 15:53] LABS: ABS Lymphocytes 0.9 10^3/ul (1.0-4.8); ABS Monocytes 1.2 10^3/ul (0-0.8); ABS Neutrophils 6.9 10^3/ul (1.5-7.7); Hematocrit 43 % (42-52); Hemoglobin 14.7 g/dL (14.0-18.0); Lymphocyte % 9.9 %; Mean Corpuscular HGB Conc 34 g/dL (31-36); Mean Corpuscular Hemoglobin 32 pg (27-31); Mean Corpuscular Volume 94 fL (80-94); Mean Platelet Volume 7.7 fL (7.4-10.4); Nucleated Red Blood Cells % 0.1; Platelet Count 183 10^3/uL (150-450); Red Blood Count 4.56 10^6 /uL (4.18-5.48); Red Cell Distribution Width 14 % (10-15); White Blood Count 9.1 10^3/uL (3.5-10.8)
[2021-03-18 16:08] LABS: Potassium Redraw 3.9 mmol/L (3.5-5.0)
[2021-03-18] MEDS: Remdesivir 100 mg Vial 100 MG in NS 0.9% 250 ml 230 ML IV SCH (22:13)
[2021-03-19] MEDS: Ondansetron 4 mg VIAL 2 MG/ML 2 ml VIAL IV PRN (01:45)
[2021-03-19 05:29] LABS: Albumin 3.5 g/dL (3.2-5.2); Calcium 9.2 mg/dL (8.6-10.3); EGFR African American 100.4 (>60); EGFR Non-African American 82.9 (>60); Globulin 3.4 g/dL (2-4); Total Bilirubin 0.7 mg/dL (0.2-1.0); Total Protein 6.9 g/dL (6.4-8.9)
[2021-03-19 05:54] LABS: Potassium 4.2 mmol/L (3.5-5.0)
[2021-03-19] MEDS: Polyethylene Glycol 3350 17 GM PACKET PO SCH ×2 (09:38→21:20)
[2021-03-19] MEDS: Nystatin TOP POWDER 15 GM BTL TOPICAL SCH ×3 (09:39→21:19)
[2021-03-19] MEDS: Carbidopa/Levodop 25/100 MG TAB PO SCH ×2 (09:43→21:18)
[2021-03-19] MEDS: Amoxicillin/Clavul 875/125 TAB (Augmentin 875 tab) PO SCH ×2 (09:43→21:18)
[2021-03-19] MEDS: PTO:Mirabegron 50 mg ER TAB (NF) PO SCH (09:45)
[2021-03-19] MEDS: Remdesivir 100 mg Vial 100 MG in NS 0.9% 250 ml 230 ML IV SCH (21:08)
[2021-03-19] MEDS: guaiFENesin 100 mg/5 ml LIQ unit dose cup PO PRN (21:20)
[2021-03-20 06:00] LABS: Hematocrit 43 % (42-52); Hemoglobin 14.6 g/dL (14.0-18.0); Mean Corpuscular HGB Conc 34 g/dL (31-36); Mean Corpuscular Hemoglobin 32 pg (27-31); Mean Corpuscular Volume 94 fL (80-94); Mean Platelet Volume 7.9 fL (7.4-10.4); Platelet Count 222 10^3/uL (150-450); Red Blood Count 4.55 10^6 /uL (4.18-5.48); Red Cell Distribution Width 14 % (10-15); White Blood Count 10.5 10^3/uL (3.5-10.8)
[2021-03-20 06:19] LABS: ABS Lymphocytes 2.1 10^3/ul (1.0-4.8); ABS Monocytes 1.4 10^3/ul (0-0.8); ABS Neutrophils 7.1 10^3/ul (1.5-7.7); Albumin 3.4 g/dL (3.2-5.2); Albumin/Globulin Ratio 1.1 (1-3); EGFR African American 95.5 (>60); EGFR Non-African American 78.9 (>60); Eosinophil % 0.1 %; Globulin 3.1 g/dL (2-4); Lymphocyte % 19.6 %; Potassium 4.5 mmol/L (3.5-5.0); Total Bilirubin 0.6 mg/dL (0.2-1.0); Total Protein 6.5 g/dL (6.4-8.9)
[2021-03-20] MEDS: Amoxicillin/Clavul 875/125 TAB (Augmentin 875 tab) PO SCH ×2 (11:06→21:41)
[2021-03-20] MEDS: PTO:Mirabegron 50 mg ER TAB (NF) PO SCH (11:07)
[2021-03-20] MEDS: Nystatin TOP POWDER 15 GM BTL TOPICAL SCH ×3 (11:07→21:42)
[2021-03-20] MEDS: Carbidopa/Levodop 25/100 MG TAB PO SCH ×2 (11:07→21:41)
[2021-03-20] MEDS: Polyethylene Glycol 3350 17 GM PACKET PO SCH ×2 (11:13→21:42)
[2021-03-20] MEDS ORDERED: Dextrose 50% Syringe 50 ml 25 GM/50 ML SYRINGE IV PUSH PRN (13:37)
[2021-03-20] MEDS ORDERED: Senna TAB 8.6 mg TAB PO PRN (21:30)
[2021-03-20] MEDS ORDERED: Polyethylene Glycol 3350 17 GM PACKET PO PRN (21:30)
[2021-03-20] MEDS ORDERED: Magnesium Hydroxide LIQ 30 ML UDC PO PRN (21:30)
[2021-03-21 06:40] LABS: Hematocrit 43 % (42-52); Hemoglobin 14.5 g/dL (14.0-18.0); Mean Corpuscular HGB Conc 34 g/dL (31-36); Mean Corpuscular Hemoglobin 32 pg (27-31); Mean Corpuscular Volume 96 fL (80-94); Platelet Count 226 10^3/uL (150-450); Red Blood Count 4.53 10^6 /uL (4.18-5.48); Red Cell Distribution Width 14 % (10-15); White Blood Count 12.1 10^3/uL (3.5-10.8)
[2021-03-21 07:02] LABS: Calcium 9.3 mg/dL (8.6-10.3)
[2021-03-21 07:06] LABS: Potassium 5.1 mmol/L (3.5-5.0)
[2021-03-21 07:08] LABS: EGFR Non-African American 109.1 (>60)
[2021-03-21] MEDS: Amoxicillin/Clavul 875/125 TAB (Augmentin 875 tab) PO SCH ×2 (08:15→21:09)
[2021-03-21] MEDS: Nystatin TOP POWDER 15 GM BTL TOPICAL SCH ×4 (08:17→21:10)
[2021-03-21] MEDS: Polyethylene Glycol 3350 17 GM PACKET PO SCH ×2 (08:18→21:08)
[2021-03-21] MEDS: Carbidopa/Levodop 25/100 MG TAB PO SCH ×2 (08:18→21:09)
[2021-03-21 08:56] LABS: ABS Lymphocytes 2.3 10^3/ul (1.0-4.8); ABS Monocytes 1.1 10^3/ul (0-0.8); ABS Neutrophils 8.6 10^3/ul (1.5-7.7); Eosinophil % 0.1 %; Lymphocyte % 18.9 %
[2021-03-21] MEDS: PTO:Mirabegron 50 mg ER TAB (NF) PO SCH ×2 (09:31→18:09)
[2021-03-21] MEDS: guaiFENesin 100 mg/5 ml LIQ unit dose cup PO PRN ×2 (11:58→21:44)
[2021-03-21] MEDS ORDERED: PTO:Mirabegron 50 mg ER TAB (NF) PO SCH (18:30)
[2021-03-22] MEDS: Polyethylene Glycol 3350 17 GM PACKET PO SCH (09:26)
[2021-03-22] MEDS: Amoxicillin/Clavul 875/125 TAB (Augmentin 875 tab) PO SCH (09:27)
[2021-03-22] MEDS: Carbidopa/Levodop 25/100 MG TAB PO SCH (09:27)
[2021-03-22 11:43] VITALS: BP 109/45
[2021-03-22] MEDS: Nystatin TOP POWDER 15 GM BTL TOPICAL SCH (11:58)
== END 2021-03-22 11:56 | disposition swing bed (61) | DRG 177 ==
LOC: ED 18:03 → SUATTDRO 03-10 01:56 → EDHOLD 03-10 03:54 → MED 03-10 12:40
PROVIDERS: ADMIT Student in an Organized Health Care Education/Training Program; ATTEND Internal Medicine

== ENCOUNTER 2021-03-22 12:22 | Inpatient (IN) ==
[2021-03-22] MEDS ORDERED: Albuterol HFA INHALER 8 gm MDI INH PRN (12:42)
[2021-03-22] MEDS ORDERED: Calcium Carb (TUMS) 500 mg CHEW TAB PO PRN (12:42)
[2021-03-22] MEDS: PTO: Mirabegron 50 mg ER TAB (NF) PO SCH (18:28)
[2021-03-22] MEDS: Carbidopa/Levodop 25/100 MG TAB PO SCH (20:13)
[2021-03-23] MEDS: Carbidopa/Levodop 25/100 MG TAB PO SCH ×2 (10:37→21:15)
[2021-03-23] MEDS: PTO: Mirabegron 50 mg ER TAB (NF) PO SCH (18:15)
[2021-03-24] MEDS: Carbidopa/Levodop 25/100 MG TAB PO SCH ×2 (08:49→21:02)
[2021-03-24] MEDS: PTO: Mirabegron 50 mg ER TAB (NF) PO SCH (17:38)
[2021-03-25 09:32] LABS: Hematocrit 42 % (42-52); Hemoglobin 14.6 g/dL (14.0-18.0); Mean Corpuscular HGB Conc 34 g/dL (31-36); Mean Corpuscular Hemoglobin 32 pg (27-31); Mean Corpuscular Volume 95 fL (80-94); Platelet Count 337 10^3/uL (150-450); Red Blood Count 4.49 10^6 /uL (4.18-5.48); Red Cell Distribution Width 14 % (10-15); White Blood Count 10.3 10^3/uL (3.5-10.8)
[2021-03-25 09:45] LABS: Calcium 9.4 mg/dL (8.6-10.3); EGFR African American 94.3 (>60); EGFR Non-African American 77.9 (>60); Potassium 4.1 mmol/L (3.5-5.0)
[2021-03-25] MEDS: Carbidopa/Levodop 25/100 MG TAB PO SCH ×2 (10:03→20:44)
[2021-03-25] MEDS: PTO: Mirabegron 50 mg ER TAB (NF) PO SCH (17:42)
[2021-03-26] MEDS: Carbidopa/Levodop 25/100 MG TAB PO SCH ×2 (08:51→20:19)
[2021-03-26] MEDS: Magnesium Hydroxide LIQ 30 ML UDC PO PRN (17:55)
[2021-03-26] MEDS: PTO: Mirabegron 50 mg ER TAB (NF) PO SCH (18:01)
[2021-03-27] MEDS: Magnesium Hydroxide LIQ 30 ML UDC PO PRN ×2 (05:28→15:07)
[2021-03-27] MEDS: Carbidopa/Levodop 25/100 MG TAB PO SCH ×2 (09:19→21:24)
[2021-03-27] MEDS: PTO: Mirabegron 50 mg ER TAB (NF) PO SCH (17:46)
[2021-03-28] MEDS ORDERED: Magnesium Hydroxide LIQ 30 ML UDC PO PRN (07:47)
[2021-03-28] MEDS ORDERED: Senna TAB 8.6 mg TAB PO PRN (07:47)
[2021-03-28] MEDS ORDERED: Polyethylene Glycol 3350 17 GM PACKET PO PRN (07:47)
[2021-03-28] MEDS: Carbidopa/Levodop 25/100 MG TAB PO SCH ×2 (10:40→20:58)
[2021-03-28] MEDS: Magnesium Hydroxide LIQ 30 ML UDC PO SCH ×2 (10:40→21:00)
[2021-03-28] MEDS: PTO: Mirabegron 50 mg ER TAB (NF) PO SCH (18:22)
[2021-03-29 07:56] VITALS: BP 104/71
[2021-03-29] MEDS: Magnesium Hydroxide LIQ 30 ML UDC PO SCH (08:56)
[2021-03-29] MEDS: Carbidopa/Levodop 25/100 MG TAB PO SCH (09:00)
== END 2021-03-29 11:40 | DRG 178 ==
LOC: SUATTDRO 12:22 → MED 12:22
PROVIDERS: ADMIT Internal Medicine; ATTEND Hospitalist

== ENCOUNTER 2021-08-19 09:23 | Inpatient (IN) ==
[2021-08-19] MEDS ORDERED: Prothrombin Complex Conc. DOSE = Units Factor IX (nine) IV SLOW PU ONE (10:58)
[2021-08-19] MEDS ORDERED: levETIRAcetam 1000MG IVPREMIX 1,000 MG/100 ML BAG IVPB SCH (11:00)
[2021-08-19 11:03] LABS: ABS Monocytes 0.7 10^3/ul (0-0.8); ABS Neutrophils 5.9 10^3/ul (1.5-7.7); Eosinophil % 0.1 %; Hematocrit 42 % (42-52); Hemoglobin 14.4 g/dL (14.0-18.0); Lymphocyte % 13.7 %; Mean Corpuscular HGB Conc 35 g/dL (31-36); Mean Corpuscular Hemoglobin 31 pg (27-31); Mean Corpuscular Volume 89 fL (80-94); Platelet Count 162 10^3/uL (150-450); Red Cell Distribution Width 14 % (10-15); White Blood Count 7.6 10^3/uL (3.5-10.8)
[2021-08-19 11:09] LABS: INR 1.68 (0.86-1.15)
[2021-08-19 11:20] LABS: Albumin 4.1 g/dL (3.2-5.2); Albumin/Globulin Ratio 1.4 (1-3); Calcium 9.6 mg/dL (8.6-10.3); Potassium 4.1 mmol/L (3.5-5.0); Total Bilirubin 0.9 mg/dL (0.2-1.0); Total Protein 7.1 g/dL (6.4-8.9); eGFR CKD-EPI 66.5 (>60)
[2021-08-19 11:22] LABS: Troponin I 0.01 ng/mL (<0.03)
[2021-08-19] MEDS ORDERED: Famotidine IV 10 MG/ML 2 ml VIAL (20 mg) IVPB ONE (13:51)
[2021-08-19 19:40] LABS: Urine Appearance Clear; Urine Color Straw
[2021-08-19 19:41] LABS: Urine Bilirubin Negative (Negative); Urine Blood 1+ (Negative); Urine Glucose Negative (Negative); Urine Ketones Negative (Negative); Urine Nitrite Negative (Negative); Urine Protein Negative (Negative); Urine Urobilinogen Negative (Negative); Urine pH 6 (5-9)
[2021-08-19 19:42] LABS: Urine Bacteria Absent (Absent); Urine Red Blood Cell 1+(3-5/hpf) (Absent); Urine White Blood Cell Trace(0-5/hpf) (Absent)
[2021-08-19] MEDS ORDERED: levETIRAcetam 500 MG IVPREMIX 500 MG/100 ML BAG IV SCH (22:00)
[2021-08-20] MEDS ORDERED: Iodixanol (CONTRAST) 320 MG/ML 100 ML SDV IV ONE (07:12)
[2021-08-20] MEDS ORDERED: Calcium Carb (TUMS) 500 mg CHEW TAB PO PRN (09:29)
[2021-08-20] MEDS ORDERED: Albuterol HFA INHALER 8 gm MDI INH PRN (09:29)
[2021-08-20 09:51] LABS: Hematocrit 40 % (42-52); Hemoglobin 13.7 g/dL (14.0-18.0); Mean Corpuscular HGB Conc 34 g/dL (31-36); Mean Corpuscular Hemoglobin 31 pg (27-31); Mean Corpuscular Volume 90 fL (80-94); Mean Platelet Volume 8.3 fL (7.4-10.4); Platelet Count 161 10^3/uL (150-450); Red Blood Count 4.46 10^6 /uL (4.18-5.48); Red Cell Distribution Width 14 % (10-15); White Blood Count 7.3 10^3/uL (3.5-10.8)
[2021-08-20 09:57] LABS: INR 1.21 (0.86-1.15)
[2021-08-20] MEDS ORDERED: Mirabegron 50 mg ER TAB (NF) PO SCH (10:00)
[2021-08-20 10:05] LABS: Calcium 9.6 mg/dL (8.6-10.3); Potassium 3.7 mmol/L (3.5-5.0); eGFR CKD-EPI 72.5 (>60)
[2021-08-20] MEDS ORDERED: levETIRAcetam 500 MG IVPREMIX 500 MG/100 ML BAG IV SCH (12:00)
[2021-08-20] MEDS: Carbidopa/Levodop 25/100 MG TAB PO SCH (21:04)
[2021-08-21] MEDS ORDERED: Ondansetron 4 mg VIAL 2 MG/ML 2 ml VIAL IV PRN (05:39)
[2021-08-21] MEDS ORDERED: hydrALAZINE 20 mg/ml 1 ML Vial IV IV SLOW PU PRN ×2 (07:28→08:38)
[2021-08-21] MEDS ORDERED: Prochlorperazine 5 mg/ml 2 ml VIAL (10 mg) IV PRN (07:30)
[2021-08-21 08:26] LABS: Hematocrit 40 % (42-52); Hemoglobin 14.1 g/dL (14.0-18.0); Mean Corpuscular HGB Conc 35 g/dL (31-36); Mean Corpuscular Hemoglobin 32 pg (27-31); Mean Corpuscular Volume 89 fL (80-94); Platelet Count 157 10^3/uL (150-450); Red Blood Count 4.47 10^6 /uL (4.18-5.48); Red Cell Distribution Width 14 % (10-15); White Blood Count 6.9 10^3/uL (3.5-10.8)
[2021-08-21] MEDS: Carbidopa/Levodop 25/100 MG TAB PO SCH ×2 (08:32→22:12)
[2021-08-21 08:38] LABS: Calcium 9.7 mg/dL (8.6-10.3); Potassium 3.9 mmol/L (3.5-5.0); eGFR CKD-EPI 79.5 (>60)
[2021-08-21 09:07] LABS: INR 1.1 (0.86-1.15)
[2021-08-21] MEDS ORDERED: Trimethobenzamide *IM* 100 mg/ml 2 ml VIAL (200 mg) IM ONE (10:10)
[2021-08-21] MEDS ORDERED: Gadoteridol (CONTRAST) 279.3 MG/ML 10 ML IV ONE (16:31)
[2021-08-21] MEDS: Magnesium Hydroxide LIQ 30 ML UDC PO PRN (22:20)
[2021-08-22] MEDS ORDERED: Polyethylene Glycol 3350 17 GM PACKET PO ONE (04:00)
[2021-08-22] MEDS: Magnesium Hydroxide LIQ 30 ML UDC PO PRN ×2 (09:26→18:01)
[2021-08-22] MEDS: Carbidopa/Levodop 25/100 MG TAB PO SCH ×2 (09:26→21:22)
[2021-08-22] MEDS ORDERED: Polyethylene Glycol 3350 17 GM PACKET PO PRN (11:01)
[2021-08-23] MEDS: Carbidopa/Levodop 25/100 MG TAB PO SCH ×2 (08:40→22:18)
[2021-08-23] MEDS: Magnesium Hydroxide LIQ 30 ML UDC PO PRN ×2 (08:53→22:17)
[2021-08-24 07:01] VITALS: BP 143/84
[2021-08-24] MEDS: Carbidopa/Levodop 25/100 MG TAB PO SCH (08:42)
[2021-08-24 09:44] LABS: Rapid COVID-19 Molecular Undetected (Undetected)
== END 2021-08-24 11:15 | DRG 85 ==
LOC: ED 09:23 → EDHOLD 12:16 → SUATTDRO 12:16 → EDHOLD 13:07 → ICU 13:48 → SSU 08-20 11:35
PROVIDERS: ADMIT Internal Medicine Critical Care Medicine; ATTEND Student in an Organized Health Care Education/Training Program

== ENCOUNTER 2021-09-05 16:55 | Inpatient (IN) ==
[2021-09-05 18:03] LABS: ABS Basophils 0.1 10^3/ul (0-0.2); ABS Eosinophils 0.1 10^3/ul (0-0.6); ABS Lymphocytes 2.4 10^3/ul (1.0-4.8); ABS Monocytes 0.6 10^3/ul (0-0.8); ABS Neutrophils 3.6 10^3/ul (1.5-7.7); Eosinophil % 1.8 %; Hematocrit 37 % (42-52); Lymphocyte % 34.9 %; Mean Corpuscular HGB Conc 35 g/dL (31-36); Mean Corpuscular Hemoglobin 32 pg (27-31); Mean Corpuscular Volume 92 fL (80-94); Mean Platelet Volume 6.8 fL (7.4-10.4); Platelet Count 211 10^3/uL (150-450); Red Blood Count 4.05 10^6 /uL (4.18-5.48); Red Cell Distribution Width 15 % (10-15); White Blood Count 6.8 10^3/uL (3.5-10.8)
[2021-09-05 18:21] LABS: Albumin 3.7 g/dL (3.2-5.2); Albumin/Globulin Ratio 1.2 (1-3); Calcium 9.6 mg/dL (8.6-10.3); Globulin 3.1 g/dL (2-4); Potassium 4.1 mmol/L (3.5-5.0); Total Bilirubin 0.4 mg/dL (0.2-1.0); Total Protein 6.8 g/dL (6.4-8.9); eGFR CKD-EPI 59.7 (>60)
[2021-09-05] MEDS ORDERED: Polyethylene Glycol 3350 17 GM PACKET PO PRN (20:11)
[2021-09-05] MEDS ORDERED: Albuterol HFA INHALER 8 gm MDI INH PRN (20:11)
[2021-09-05] MEDS ORDERED: Calcium Carb (TUMS) 500 mg CHEW TAB PO PRN (20:11)
[2021-09-05] MEDS: Carbidopa/Levodop 25/100 MG TAB PO SCH (21:14)
[2021-09-06 04:46] LABS: ABS Eosinophils 0.1 10^3/ul (0-0.6); ABS Monocytes 0.5 10^3/ul (0-0.8); Eosinophil % 2.2 %; Hematocrit 39 % (42-52); Hemoglobin 13.3 g/dL (14.0-18.0); Mean Corpuscular HGB Conc 34 g/dL (31-36); Mean Corpuscular Hemoglobin 32 pg (27-31); Mean Corpuscular Volume 92 fL (80-94); Mean Platelet Volume 6.9 fL (7.4-10.4); Platelet Count 221 10^3/uL (150-450); Red Cell Distribution Width 15 % (10-15); White Blood Count 5.6 10^3/uL (3.5-10.8)
[2021-09-06 04:54] LABS: Activated Partial Thrombo Time 34.5 seconds (26.0-38.0); INR 1.03 (0.86-1.15)
[2021-09-06 05:02] LABS: Calcium 9.8 mg/dL (8.6-10.3); eGFR CKD-EPI 74.1 (>60)
[2021-09-06] MEDS: Carbidopa/Levodop 25/100 MG TAB PO SCH ×2 (10:12→22:04)
[2021-09-06] MEDS: Mirabegron 50 mg ER TAB (NF) PO SCH (10:14)
[2021-09-06] MEDS ORDERED: HYDROcodone/ACETAMIN 5/325 mg TAB PO PRN (17:59)
[2021-09-07] MEDS: Carbidopa/Levodop 25/100 MG TAB PO SCH ×2 (08:36→21:01)
[2021-09-07] MEDS: Mirabegron 50 mg ER TAB (NF) PO SCH (08:37)
[2021-09-07 08:54] LABS: ABS Eosinophils 0.1 10^3/ul (0-0.6); ABS Lymphocytes 2.1 10^3/ul (1.0-4.8); ABS Monocytes 0.6 10^3/ul (0-0.8); ABS Neutrophils 4.2 10^3/ul (1.5-7.7); Hematocrit 41 % (42-52); Hemoglobin 14.1 g/dL (14.0-18.0); Lymphocyte % 30.3 %; Mean Corpuscular HGB Conc 34 g/dL (31-36); Mean Corpuscular Hemoglobin 32 pg (27-31); Mean Corpuscular Volume 93 fL (80-94); Nucleated Red Blood Cells % 0.1; Platelet Count 230 10^3/uL (150-450); Red Blood Count 4.44 10^6 /uL (4.18-5.48); Red Cell Distribution Width 14 % (10-15); White Blood Count 7.1 10^3/uL (3.5-10.8)
[2021-09-07 09:10] LABS: Calcium 10.3 mg/dL (8.6-10.3); Potassium 4.5 mmol/L (3.5-5.0); eGFR CKD-EPI 72.5 (>60)
[2021-09-07] MEDS: Polyethylene Glycol 3350 17 GM PACKET PO SCH (15:08)
[2021-09-07] MEDS ORDERED: HYDROcodone/ACETAMIN 5/325 mg TAB PO PRN (17:15)
[2021-09-07] MEDS: Magnesium Hydroxide LIQ 30 ML UDC PO PRN (21:08)
[2021-09-08] MEDS ORDERED: Buffered Lidocaine 1% SYRIN 1 ml INTRADERM ONE (06:00)
[2021-09-08] MEDS ORDERED: Lactated Ringers 1000 ml BAG 1,000 ML IV SCH (06:00)
[2021-09-08] MEDS ORDERED: Phenylephrine IV 10 MG/ML 1 ml VIAL ONE (06:56)
[2021-09-08] MEDS ORDERED: Midazolam 5 mg/5 ml VIAL 1 mg/ml 5 ml VIAL (5 mg) ONE (06:56)
[2021-09-08] MEDS ORDERED: fentaNYL 250 mcg/5 ml 50 MCG/ML 5 ml VIAL (250 MCG) ONE (06:56)
[2021-09-08] MEDS ORDERED: Propofol 10 mg/ml 100 ML BTL 0 ML ONE (07:00)
[2021-09-08] MEDS ORDERED: Dexamethasone IV 4 MG/ML VIAL 1 ml VIAL ONE (09:12)
[2021-09-08] MEDS ORDERED: Lidocaine 1% MPF 5 ML VIAL ONE (09:13)
[2021-09-08] MEDS ORDERED: Rocuronium 50 mg VIAL 10 mg/ml 5 ml VIAL (50 mg) ONE (09:13)
[2021-09-08] MEDS ORDERED: Etomidate 40 mg/20 ml (2 MG/ML) 20 ml VIAL (40 mg) ONE (09:13)
[2021-09-08] MEDS ORDERED: Lidocaine 1% VIAL 10 MG/ML VIAL ONE (12:47)
[2021-09-08] MEDS ORDERED: Heparin 2 UNITS/ML IVPREMIX 3,000 UNIT/1,500 ML BAG IV ONE (12:48)
[2021-09-08] MEDS ORDERED: Iohexol 350 (CONTRAST) 200 ML MDV IV ONE (12:48)
[2021-09-08] MEDS ORDERED: Propofol 10 mg/ml 100 ML BTL 200 ML ONE (13:11)
[2021-09-08] MEDS ORDERED: Heparin 1,000 UNIT/ML 10 ml (10,000 UNITS) CATHLAB/DIALYSIS ONE (13:16)
[2021-09-08] MEDS ORDERED: Heparin 2 UNITS/ML IVPREMIX 1,000 UNIT/500 ML BAG IV ONE ×3 (13:58→14:52)
[2021-09-08] MEDS ORDERED: EPHEDrine (Pressors) 50 MG/ML VIAL ONE (13:58)
[2021-09-08] MEDS: Carbidopa/Levodop 25/100 MG TAB PO SCH ×3 (16:17→22:16)
[2021-09-08] MEDS: Mirabegron 50 mg ER TAB (NF) PO SCH (16:18)
[2021-09-08] MEDS: Polyethylene Glycol 3350 17 GM PACKET PO SCH (16:19)
[2021-09-08] MEDS ORDERED: Metoclopramide 5 MG/ML VIAL (10 mg) IV PRN (16:37)
[2021-09-08] MEDS ORDERED: fentaNYL 100 mcg/2 ml 50 MCG/ML VIAL IV PRN (16:37)
[2021-09-08] MEDS ORDERED: Naloxone 0.4 mg VIAL 0.4 mg/ml 1 ml VIAL IV PRN (16:37)
[2021-09-08] MEDS ORDERED: HYDROcodone/ACETAMIN 5/325 mg TAB PO PRN (16:37)
[2021-09-08] MEDS ORDERED: Ondansetron 4 mg VIAL 2 MG/ML 2 ml VIAL IV PRN (16:37)
[2021-09-08] MEDS ORDERED: Heparin 2 UNITS/ML 1000 mls 1,000 ML IV ONE (17:18)
[2021-09-08] MEDS ORDERED: fentaNYL 100 mcg/2 ml 50 MCG/ML VIAL ONE (17:32)
[2021-09-08] MEDS ORDERED: Ondansetron 4 mg VIAL 2 MG/ML 2 ml VIAL ONE (18:26)
[2021-09-09] MEDS: Magnesium Hydroxide LIQ 30 ML UDC PO PRN (06:30)
[2021-09-09] MEDS: Polyethylene Glycol 3350 17 GM PACKET PO SCH (08:16)
[2021-09-09] MEDS: Carbidopa/Levodop 25/100 MG TAB PO SCH (08:17)
[2021-09-09] MEDS: Mirabegron 50 mg ER TAB (NF) PO SCH (08:18)
[2021-09-09 11:02] LABS: ABS Lymphocytes 1.5 10^3/ul (1.0-4.8); ABS Monocytes 1.1 10^3/ul (0-0.8); ABS Neutrophils 8.5 10^3/ul (1.5-7.7); Hematocrit 37 % (42-52); Hemoglobin 12.5 g/dL (14.0-18.0); Lymphocyte % 13.9 %; Mean Corpuscular HGB Conc 34 g/dL (31-36); Mean Corpuscular Hemoglobin 31 pg (27-31); Mean Corpuscular Volume 92 fL (80-94); Mean Platelet Volume 6.8 fL (7.4-10.4); Platelet Count 225 10^3/uL (150-450); Red Blood Count 4.06 10^6 /uL (4.18-5.48); Red Cell Distribution Width 15 % (10-15); White Blood Count 11.1 10^3/uL (3.5-10.8)
[2021-09-09 11:26] LABS: Calcium 9.8 mg/dL (8.6-10.3); Potassium 4.4 mmol/L (3.5-5.0)
[2021-09-09 12:25] VITALS: BP 109/57
[2021-09-09 12:52] LABS: Rapid COVID-19 Molecular Undetected (Undetected)
== END 2021-09-09 14:45 | DRG 272 ==
LOC: EDHOLD 16:55 → ED 16:55 → MEDTELE 21:58 → SUATTDRO 09-06 12:30
PROVIDERS: ADMIT Nurse Practitioner; ATTEND Internal Medicine